=== PATIENT | male | born 1995 | race African-American/Black ===

== ENCOUNTER 2019-09-28 11:46 | Emergency (ER) | payer MEDICARE, OTHER ==
--- NOTE | 2019-09-28 12:32 | XR ---
EXAMINATION TYPE: XR hand complete LT DATE OF EXAM: 09/28/2019 COMPARISON: None HISTORY: Fifth metacarpal fracture from boxing TECHNIQUE: Three-view left hand FINDINGS: There is a comminuted fracture of the distal fifth metacarpal. Callus formation is evident. There is anterior angulation of the distal fracture fragment. Some mild soft tissue swelling may be over the fracture site. Remaining osseous structures appear intact. Joint spaces are preserved. IMPRESSION: 1. Distal fifth metacarpal fracture with anterior angulation of the distal fracture fragment. Some c allus formation is evident.
--- NOTE | 2019-09-28 12:35 | ED ---
Upper Extremity HPI - General Chief Complaint: Extremity Injury, Upper Stated Complaint: fx hand Time Seen by Provider: 09/28/19 12:03 Source: patient, RN notes reviewed Mode of arrival: ambulatory Limitations: no limitations - History of Present Illness Initial Comments: 24-year-old male presents emergency Department chief complaint of left hand injury. Patient states his happened 2 weeks ago in which she was diagnosed with a hand fracture. Patient states he took of a splinter follow-up with orthopedics. Patient states that it is still painful to move. Patient states he is ambidextrous. Patient denies making orthopedic appointment. - Related Data Home Medications Medication Instructions Recorded Confirmed ARIPiprazole [Abilify Maintena] 400 mg SQ Q28D 09/28/19 09/28/19 Allergies Allergy/AdvReac Type Severity Reaction Status Date / Time No Known Allergies Allergy Verified 09/28/19 12:18 Review of Systems ROS Statement: Those systems with pertinent positive or pertinent negative responses have been documented in the HPI. ROS Other: All systems not noted in ROS Statement are negative. Past Medical History Additional Past Medical History / Comment(s): Migraine History of Any Multi-Drug Resistant Organisms: None Reported Additional Past Surgical History / Comment(s): hand surgery Past Psychological History: Anxiety, Schizophrenia Smoking Status: Current every day smoker Past Alcohol Use History: Occasional Past Drug Use History: Marijuana General Exam Limitations: no limitations General appearance: alert, in no apparent distress Head exam: Present: atraumatic, normocephalic, normal inspection Neck exam: Present: normal inspection, full ROM. Absent: tenderness, meningismus, lymphadenopathy Respiratory exam: Present: normal lung sounds bilaterally. Absent: respiratory distress, wheezes, rales, rhonchi, stridor Cardiovascular Exam: Present: regular rate, normal rhythm, normal heart sounds. Absent: systolic murmur, diastolic murmur, rubs, gallop, clicks Extremities exam: Present: other (Left hand there is moderate swelling, deformity over the fifth metacarpal neurovascular intact full range of motion moderate tenderness with palpation) Course Vital Signs 09/28/19 09/28/19 12:00 12:40 Temperature 98.3 F 98.0 F Pulse Rate 82 78 Respiratory 20 16 Rate Blood Pressure 110/75 123/74 O2 Sat by Pulse 97 97 Oximetry Procedures - Orthopedic Splinting/Casting Injury #1 Side: left Upper Extremity Injury Location: hand Upper Extremity Immobilizer: ulnar gutter, synthetic pre-padded splint Additional Comments: Neurovascular intact before and after procedure Medical Decision Making - Medical Decision Making Patient was splinted and will follow-up with orthopedics. Disposition Clinical Impression: Displaced fracture of neck of left fifth metacarpal bone Disposition: HOME SELF-CARE Condition: Stable Instructions (If sedation given, give patient instructions): Hand Fracture (ED) Additional Instructions: Please return to the Emergency Department if symptoms worsen or any other concerns. Is patient prescribed a controlled substance at d/c from ED?: No Referrals: [facility] [Primary Care Provider] - 1-2 days Ramiro Treviño DO [Doctor of Osteopathic Medicine] - 1-2 days Time of Disposition: 12:35
[2019-09-28 12:41] VITALS: BP 123/74; PULSE 78; RESP 16; TEMP 98
== END 2019-09-28 12:50 | disposition home or self-care (01) ==
LOC: EC 11:46
DX: S62.337A Displaced fracture of neck of fifth metacarpal bone, left hand, initial encounter for closed fracture (principal); F41.9 Anxiety disorder, unspecified; F20.9 Schizophrenia, unspecified; F17.200 Nicotine dependence, unspecified, uncomplicated; Z79.899 Other long term (current) drug therapy; W50.0XXA Accidental hit or strike by another person, initial encounter; Y92.009 Unspecified place in unspecified non-institutional (private) residence as the place of occurrence of the external cause
CPT/HCPCS: 29125; 99283

== ENCOUNTER 2021-10-24 17:02 | Inpatient (IN) | payer MEDICARE, MEDICAID ==
--- NOTE | 2021-10-24 22:33 | ED ---
Psych HPI - General Chief Complaint: Psychiatric Symptoms Stated Complaint: Petition Time Seen by Provider: 10/24/21 17:10 Source: patient Mode of arrival: ambulatory - History of Present Illness Initial Comments: 26-year-old male with unknown past medical history presents emergency Department with altered mental status. Patient was found in the middle of traffic yelling, darting in between cars. Police arrested him and brought him into the emergency room. He is stating to me "I don't want any drugs or any needles". He will not provide any history. He does not answer in regards to drug use or history of psychiatric issues. I do attempt to call the patient's grandmother who is listed as his next of kin however she does not answer. Patient is petitioned by police. I do review the patient's chart. In 2013 it is mentioned that the patient has a history of schizophrenia. The remainder of the patient's HPI is limited - Related Data Home Medications Medication Instructions Recorded Confirmed Aripiprazole Lauroxil [Aristada] 441 mg IM Q42D 10/24/21 10/25/21 Allergies Allergy/AdvReac Type Severity Reaction Status Date / Time ibuprofen [From Motrin] AdvReac Abdominal Verified 10/25/21 04:46 Pain Review of Systems ROS Statement: Those systems with pertinent positive or pertinent negative responses have been documented in the HPI. ROS Other: All systems not noted in ROS Statement are negative. Past Medical History Additional Past Medical History / Comment(s): Migraine History of Any Multi-Drug Resistant Organisms: None Reported Additional Past Surgical History / Comment(s): hand surgery Past Psychological History: Anxiety, Schizophrenia Smoking Status: Current every day smoker Past Alcohol Use History: Occasional Past Drug Use History: Marijuana General Exam General appearance: alert, in no apparent distress Head exam: Present: atraumatic, normocephalic, normal inspection Eye exam: Present: normal appearance, PERRL, EOMI. Absent: scleral icterus, conjunctival injection, periorbital swelling ENT exam: Present: normal exam, mucous membranes moist Neck exam: Present: normal inspection. Absent: tenderness, meningismus, lymphadenopathy Respiratory exam: Present: normal lung sounds bilaterally. Absent: respiratory distress, wheezes, rales, rhonchi, stridor Cardiovascular Exam: Present: regular rate, normal rhythm, normal heart sounds. Absent: systolic murmur, diastolic murmur, rubs, gallop, clicks GI/Abdominal exam: Present: soft, normal bowel sounds. Absent: distended, tenderness, guarding, rebound, rigid Extremities exam: Present: normal inspection, full ROM, normal capillary refill. Absent: tenderness, pedal edema, joint swelling, calf tenderness Back exam: Present: normal inspection Neurological exam: Present: alert, CN II-XII intact Psychiatric exam: Present: flat affect Skin exam: Present: warm, dry, intact, normal color. Absent: rash Course Vital Signs 10/24/21 17:07 Temperature 97.8 F Pulse Rate 99 Respiratory 18 Rate Blood Pressure 111/71 O2 Sat by Pulse 98 Oximetry Medical Decision Making - Medical Decision Making Upon arrival patient was placed into room 8. I do attempt a physical exam and to obtain a history however he is uncooperative. Patient is not intoxicated at this time - BAT negative. Awaiting EPS evaluation - Lab Data Lab Results 10/25/21 Range/Units 02:50 Coronavirus (PCR) Not Detected (Not Detectd) Disposition Clinical Impression: Psychosis Disposition: TRANSFER TO PSYCH HOSP/UNIT Condition: Serious Is patient prescribed a controlled substance at d/c from ED?: No
[2021-10-25] MEDS ORDERED: MAGNESIUM HYDROXIDE 2,400 MG/10 ML CUP PO PRN (04:40)
[2021-10-25] MEDS ORDERED: MAG HYDROX/AL HYDROX/SIMETH 30 ML CUP PO PRN (04:40)
[2021-10-25] MEDS ORDERED: HALOPERIDOL LACTATE 5 MG/ML 1 ML VIAL IM PRN (04:40)
[2021-10-25] MEDS ORDERED: ACETAMINOPHEN TAB 325 MG TAB PO PRN (04:40)
[2021-10-25] MEDS ORDERED: LORazepam 2 MG/ML INJ IM PRN (04:44)
[2021-10-25 07:25] VITALS: RESP 16
[2021-10-25] MEDS ORDERED: NICOTINE 14MG/24HR PATCH TRANSDERM SCH (09:00)
--- NOTE | 2021-10-25 09:50 | P.CONS ---
History of Present Illness - Reason for Consult Consult date: 10/25/21 Requesting physician: Krishna Yang - History of Present Illness Subjective: This is a 26 showed male with past medical history of anxiety, schizophrenia, who presented to the hospital by the police. Patient was found in the middle of the traffic yelling in quitting between cars. Patient was arrested by the police and was brought to the emergency room. Patient currently is laying on the bed moving around but not opening his eyes or responding to any commands. Per nursing patient has been this way and does not want to talk to anyone. Earlier he was little aggressive as well. Patient would not answer any of my questions. Hence history is mainly obtained to chart review. In the ED patient did not answer questions when asked about the use of any psychiatric illness. Patient is currently petitioned by the police. PMH: Anxiety, schizophrenia, migraine PSH: hand surgery Social history: Documented history of smoking Family history: Unknown Physical Exam: Unable to be performed this patient is not cooperating Assessment: Altered mental status Schizophrenia Anxiety disorder History of migraines Plan: Psychiatry recommendations Check CBC, CMP, TSH, urine tox screen Haldol, Ativan when necessary ordered Lortab back again if patient is more engaged and if he answers anymore questions. Past Medical History Additional Past Medical History / Comment(s): Migraine History of Any Multi-Drug Resistant Organisms: None Reported Additional Past Surgical History / Comment(s): hand surgery Past Psychological History: Anxiety, Schizophrenia Smoking Status: Current every day smoker Past Alcohol Use History: Occasional Past Drug Use History: Marijuana Medications and Allergies Home Medications Medication Instructions Recorded Confirmed Type Aripiprazole Lauroxil [Aristada] 441 mg IM Q42D 10/24/21 10/25/21 History Allergies Allergy/AdvReac Type Severity Reaction Status Date / Time ibuprofen [From Motrin] AdvReac Abdominal Verified 10/25/21 04:46 Pain Physical Exam Vitals: Vital Signs Temp Pulse Pulse Resp BP BP Pulse Ox 10/25/21 07:07 97.1 F L 84 16 119/70 98 10/24/21 17:07 97.8 F 99 18 111/71 98 Intake and Output 10/24/21 10/25/21 10/25/21 22:59 06:59 14:59 Other: Weight 72.575 kg
--- NOTE | 2021-10-25 10:53 | P.HP ---
Psychiatric H&P - . H&P Date: 10/25/21 History & Physical: Mr. To refused to cooperate with the initial psychiatric assessment. I was unable to reach his grandmother who is listed as the next of kin. . Allergies Allergy/AdvReac Type Severity Reaction Status Date / Time ibuprofen [From Motrin] AdvReac Abdominal Verified 10/25/21 04:46 Pain Vital Signs Temp 97.1 F L 10/25/21 07:07 Pulse 84 10/25/21 07:07 Resp 16 10/25/21 07:07 BP 119/70 10/25/21 07:07 Pulse Ox 98 10/25/21 07:07 FiO2 Intake & Output 10/24/21 10/25/21 10/25/21 18:59 06:59 18:59 Weight 72.575 kg Laboratory Last Values Coronavirus (PCR) Not Detected (Not Detectd) 10/25/21 02:50 10/25/21 10:51
[2021-10-25] MEDS: LORazepam 1 MG TAB PO PRN (20:18)
[2021-10-25] MEDS: NICOTINE GUM (POLACRILEX) 2 MG GUM BUCCAL PRN (20:56)
[2021-10-26] MEDS: LORazepam 1 MG TAB PO PRN ×2 (08:31→15:40)
[2021-10-26] MEDS: NICOTINE GUM (POLACRILEX) 2 MG GUM BUCCAL PRN ×3 (08:31→18:54)
[2021-10-26 09:53] LABS: Basophils % (A) 1 %; Eosinophils # (A) 0.1 k/uL (0-0.7); Eosinophils % (A) 2 %; HGB 14.7 gm/dL (13.0-17.5); Lymphocytes # (A) 1.2 k/uL (1.0-4.8); Lymphocytes % (A) 34 %; MCH 28.8 pg (25.0-35.0); MCHC 31.3 g/dL (31.0-37.0); MCV 92.1 fL (80.0-100.0); Mean Platelet Volume 7.6; Monocytes # (A) 0.2 k/uL (0-1.0); Monocytes % (A) 6 %; Neutrophils % (A) 55 %; Platelet Count 252 k/uL (150-450); RDW 13.1 % (11.5-15.5); WBC 3.6 k/uL (3.8-10.6)
[2021-10-26 10:11] LABS: ALT 16 U/L (4-49); AST 22 U/L (17-59); African American GFR (CKD) >90 (>60 ml/min/1.73 sqM); Albumin 4.2 g/dL (3.5-5.0); Alkaline Phosphatase 68 U/L (38-126); Anion Gap 9 mmol/L; Bilirubin, Delta 0.1 mg/dL (0.0-0.2); Bilirubin,Unconjugated 0.5 mg/dL (0.0-1.1); Blood Urea Nitrogen 12 mg/dL (9-20); Calcium 8.9 mg/dL (8.4-10.2); Carbon Dioxide 29 mmol/L (22-30); Chloride 101 mmol/L (98-107); Glucose 119 mg/dL (74-99); Non-African American GFR(CKD) >90 (>60 ml/min/1.73 sqM); Potassium 4.4 mmol/L (3.5-5.1); Sodium 139 mmol/L (137-145); Total Bilirubin 0.6 mg/dL (0.2-1.3); Total Protein 6.3 g/dL (6.3-8.2)
[2021-10-26] MEDS: ARIPiprazole 5 MG TAB PO SCH (11:38)
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
[2021-10-26 16:58] LABS: Chol/HDL Ratio 2.87 Ratio; LDL Cholesterol,Calculated 86.4 mg/dL (0.0-131.0)
[2021-10-27] MEDS: ARIPiprazole 5 MG TAB PO SCH (09:58)
--- NOTE | 2021-10-27 13:39 | P.PN ---
Progress Note - Text Progress Note Date: 10/27/21 Interval History: Patient was seen leaving his bed this morning and was agreeable to speak to wr iter in his room. Patient continues to have very poor insight and judgment and continues to demand to be discharged. Continues to state that "nothing is wrong". He refuses medications this morning and when asked why he states that "I just want to get my shot and then not sad". He states that he has only gone to some groups. He is fairly constricted in his affect and uncooperative with telegraphic typewriter operator chief today and appears to be irritable. He states that he slept fairly last night. He is denying any auditory or visual hallucinations. He states that his appetite is fair. At this time patient denies any suicidal or homical ideations, intent or plan. Patient denies any side effects from the medications and has been compliant with meds. Mental Status Exam: General Appearance: Patient appears to have longer hair, thin and tall, stated age is alert, laying in bed and uncooperative. Patient appears to have improving hygiene and grooming. Behavior: Patient is laying in the bed without any agitated behavior. Irritable and impulsive Speech: Patient's speech is fluent and nonpressured. Guarded and evasive. [place]. Mood/Affect: Patient reports their mood is "ok", affect is incongruent and con stricted. Suicidality/Homicidality: Patient denies having any homicidal ideation intent or plan. Denies any suicidal ideations intent or plan Perceptions: Patient denies any visual hallucinations and denies any auditory hallucinations Though content/process: There is no evidence of any delusional thought content and thought process is linear and goal-directed. Vague. Evasive. Memory and concentration: AOX3, grossly intact for the purposes of this session Judgment and insight: poor IMPRESSIONS: Schizophrenia Cannabis use disorder Nicotine dependence Plan: -Patient continues to meet criteria for inpatient psychiatric admission for symptom stabilization and safety. Patient has not signed adult voluntary form and medication consent and was placed in patient's chart. -Medications: abilify PO 5 mg daily for mood stabilization/psychosis, patient is currently receiving Aristada 441 mg monthly IM and will be due for next dose on 11/14. -Benadryl when necessary for sleep. -When necessary Ativan and Haldol for agitation/aggression. -NRT - nicotine patch -SW on board for discharge planning. Encouraged the patient to participate in milieu. Currently awaiting deferral with front end developer designer and court date.
[2021-10-27] MEDS: NICOTINE GUM (POLACRILEX) 2 MG GUM BUCCAL PRN ×3 (15:00→21:30)
[2021-10-27 15:02] VITALS: BP 123/70; PULSE 101; TEMP 98.3
[2021-10-27] MEDS: LORazepam 1 MG TAB PO PRN (21:30)
[2021-10-27] MEDS: diphenhydrAMINE 25 MG CAP PO PRN (22:28)
[2021-10-27] MEDS: haloperidoL 5 MG TAB PO PRN (22:28)
--- NOTE | 2021-10-28 09:20 | P.PN ---
Progress Note - Text Progress Note Date: 10/28/21 Interval History: Patient was seen leaving his bed this morning and was agreeable to speak to wr iter in his room. Patient continues to have very poor insight and judgment. He continues to be fairly focused on discharge and minimizing his symptoms. He states that he needs the long-acting injection that he was getting from [facility]. Continues to believe that he is being held against his will. He appears to be somewhat visible on the unit however mainly in the afternoons and evenings. He did not endorse any paranoia today. He continues to be fairly concrete and states that he has been refusing his medication. Continues to be somewhat irritable with casualty underwriter. He states that he slept fairly last night. He is denying any auditory or visual hallucinations. He states that his appetite is fair. At this time patient denies any suicidal or homical ideations, intent or plan. Mental Status Exam: General Appearance: Patient appears to have longer hair, thin and tall, stated age is alert, laying in bed and uncooperative. Patient appears to have improving hygiene and grooming. Behavior: Patient is laying in the bed without any agitated behavior. Irritable and impulsive Speech: Patient's speech is fluent and nonpressured. Guarded and evasive. [place]. Mood/Affect: Patient reports their mood is "ok", affect is incongruent and constricted. Suicidality/Homicidality: Patient denies having any homicidal ideation intent or plan. Denies any suicidal ideations intent or plan Perceptions: Patient denies any visual hallucinations and denies any auditory hallucinations Though content/process: There is no evidence of any delusional thought content and thought process is linear and goal-directed. Vague. Evasive. Memory and concentration: AOX3, grossly intact for the purposes of this session Judgment and insight: poor IMPRESSIONS: Schizophrenia Cannabis use disorder Nicotine dependence Plan: -Patient continues to meet criteria for inpatient psychiatric admission for symptom stabilization and safety. Patient has not signed adult voluntary form and medication consent and was placed in patient's chart. -Medications: abilify PO 5 mg daily for mood stabilization/psychosis, patient is currently receiving Aristada 441 mg monthly IM and will be due for next dose on 11/14. -Benadryl when necessary for sleep. -When necessary Ativan and Haldol for agitation/aggression. -NRT - nicotine patch -SW on board for discharge planning. Encouraged the patient to participate in milieu. Deferral set for today, full court hearing set for 11/04.
[2021-10-28] MEDS: ARIPiprazole 5 MG TAB PO SCH (10:27)
[2021-10-29] MEDS: ARIPiprazole 5 MG TAB PO SCH (11:05)
--- NOTE | 2021-10-29 11:12 | P.PN ---
Progress Note - Text Progress Note Date: 10/29/21 Interval History: Patient was seen in his room today as he was gathering his belongings and gett ing ready to take a shower. He states that he has no complaints overnight last night. He claims that he is not feeling depressed or anxious today. He states that he was able to sleep better last night. He continues to have very poor insight and judgment and continues to be focused on discharge and states that he signed the deferral yesterday however he states that he does not want to take meds in the hospital and wants to go to [facility]. He called instructional writer several names and continues to be argumentative and impuslvie and disorganized. He is denying any auditory or visual hallucinations. He states that his appetite is fair. At this time patient denies any suicidal or homical ideations, intent or plan. Mental Status Exam: General Appearance: Patient appears to have longer hair, thin and tall, stated age is alert, laying in bed and uncooperative. Patient appears to have improving hygiene and grooming. Behavior: Patient is laying in the bed without any agitated behavior. Irritable and impulsive Speech: Patient's speech is fluent and nonpressured. Guarded and evasive. [place]. Mood/Affect: Patient reports their mood is "ok", affect is incongruent and constricted. Suicidality/Homicidality: Patient denies having any homicidal ideation intent or plan. Denies any suicidal ideations intent or plan Perceptions: Patient denies any visual hallucinations and denies any auditory hallucinations Though content/process: There is no evidence of any delusional thought content and thought process is linear and goal-directed. Vague. Evasive. Memory and concentration: AOX3, grossly intact for the purposes of this session Judgment and insight: poor IMPRESSIONS: Schizophrenia Cannabis use disorder Nicotine dependence Plan: -Patient continues to meet criteria for inpatient psychiatric admission for symptom stabilization and safety. Patient has not signed adult voluntary form and medication consent and was placed in patient's chart. -Medications: Discontinue Abilify by mouth and start paliperidone by mouth 3 mg daily at bedtime. -Benadryl when necessary for sleep. -When necessary Ativan and Haldol for agitation/aggression. -NRT - nicotine patch -SW on board for discharge planning. Encouraged the patient to participate in milieu. Sausage Machine Operator spoke with Dr Ugalde over the phone who also suspects that patient most likely is abusing drugs and not giving a uds. we spoke about differ ent medication options and she is ok with us starting invega and eventuaally switching onto a OTTO.
[2021-10-29] MEDS: PALIPERIDONE 3 MG TAB.ER.24 PO SCH (22:20)
[2021-10-30] MEDS ORDERED: LORazepam 2 MG/ML INJ IM PRN (10:34)
--- NOTE | 2021-10-30 10:34 | P.PN ---
Progress Note - Text Progress Note Date: 10/30/21 Interval History: Patient was seen in his room today laying in bed and got up once senior writer opened the door. Patient asked senior writer several times "would you want" and cut senior writer off as senior writer was attending to speak with patient to follow up with him. Patient appeared to be fairly hostile and aggressive with senior writer and states that "leave me alone I have nothing to say to you" and recently the door and closed it. Patient received haldol and Ativan PRN yesterday for aggression and breaking an exit sign on the unit. Mental Status Exam: General Appearance: Patient appears to have longer hair, thin and tall, stated age is alert, laying in bed and uncooperative and aggressive. Patient appears to have improving hygiene and grooming. Behavior: Patient is laying in the bed without any agitated behavior. Irritable and impulsive Speech: Patient's speech is fluent and nonpressured. Guarded and evasive. [place]. demanding. Mood/Affect: Unable to assess Suicidality/Homicidality: Unable to assess Perceptions: Unable to assess Though content/process: There is no evidence of any delusional thought content and thought process is linear and goal-directed. demanding Memory and concentration: AOX3, grossly intact for the purposes of this session Judgment and insight: poor/impuslive IMPRESSIONS: Schizophrenia Cannabis use disorder Nicotine dependence Plan: -Patient continues to meet criteria for inpatient psychiatric admission for symptom stabilization and safety. Patient has not signed adult voluntary form and medication consent and was placed in patient's chart. -Medications: paliperidone by mouth 3 mg daily at bedtime. patient is refusing medications. -Benadryl when necessary for sleep. -When necessary Ativan, benadryl and Haldol for agitation/aggression. -NRT - nicotine patch -SW on board for discharge planning. Encouraged the patient to participate in milieu. Fur Pointer spoke with Dr Ugalde over the phone who also suspects that patient most likely is abusing drugs and not giving a uds. we spoke about different medication options and she is ok with us starting invega and ev entually switching onto a OTTO.
[2021-10-30] MEDS ORDERED: diphenhydrAMINE 50 MG/ML 1 ML VIAL IM PRN (10:35)
[2021-10-30] MEDS: PALIPERIDONE 3 MG TAB.ER.24 PO SCH (21:32)
[2021-10-30] MEDS: NICOTINE GUM (POLACRILEX) 2 MG GUM BUCCAL PRN (21:56)
[2021-10-30] MEDS: haloperidoL 5 MG TAB PO PRN (21:56)
[2021-10-30] MEDS: diphenhydrAMINE 25 MG CAP PO PRN (21:56)
[2021-10-31] MEDS: haloperidoL 5 MG TAB PO PRN (16:56)
[2021-10-31] MEDS: diphenhydrAMINE 25 MG CAP PO PRN (16:56)
[2021-10-31] MEDS: NICOTINE GUM (POLACRILEX) 2 MG GUM BUCCAL PRN (18:24)
[2021-10-31] MEDS: PALIPERIDONE 3 MG TAB.ER.24 PO SCH (18:24)
--- NOTE | 2021-10-31 18:59 | P.PN ---
Progress Note - Text Progress Note Date: 10/31/21 Interval history: Patient was seen walking to his room after dinner and was directable and agreeable to speak with ad copy writer. He did not take the Invega last night, and did receive Haldol 5 mg po x 1 and Benadryl 25 mg po x 1 this afternoon for agitation. We discussed the Invega and he agreed to take his dose today. At this time, patient denies any suicidal or homicidal ideations intent or plan. He denies any auditory or visual hallucinations. Patient denies any side effects from the medications. Mental status exam: General Appearance: Patient appears to be stated age, tall male, fair hygiene. Behavior: No agitated behavior during our assessment, however he was agitated earlier this afternoon and received oral Haldol/Benadryl. Speech: Patient's speech is fluent and non-pressured. Mood/Affect: Mood is "good", affect is odd. Suicidality/Homicidality: Patient denies having any suicidal or homicidal ideation intent or plan. Perceptions: Patient denies any auditory or visual hallucinations, but does appear to be responding to internal stimuli and inappropriately smiling. Though content/process: There is no evidence of any delusional thought content, and thought process is generally linear. Memory and concentration: AOX3, grossly intact for the purposes of this session Judgment and insight: fair to poor Assessment/Plan: Continue with current diagnosis. Patient continues to meet criteria for inpatient psychiatric admission for symptom stabilization and safety. Patient will be maintained on current psychotropic medication regimen. Encourage medication compliance. Monitor for medication compliance and for any psychotropic medication side effects. Will continue to monitor ongoing response to treatment. Encouraged participation in milieu.
[2021-11-01] MEDS: NICOTINE GUM (POLACRILEX) 2 MG GUM BUCCAL PRN ×3 (11:07→17:16)
[2021-11-01] MEDS: haloperidoL 5 MG TAB PO PRN (13:30)
--- NOTE | 2021-11-01 17:50 | P.PN ---
Progress Note - Text Progress Note Date: 11/01/21 Interval history: Patient was seen attending group and was directable and agreeable to speak with commercial real estate underwriter, however he is not a very good historian since he appears to minimize his symptoms. He was compliant with his Invega 3 mg last night, and did receive Haldol 5 mg po x 1 again this afternoon which he states was for "anxiety". At this time, patient denies any suicidal or homicidal ideations intent or plan. He denies any auditory or visual hallucinations. Patient denies any side effects from the medications. Mental status exam: General Appearance: Patient appears to be stated age, tall male, fair hygiene. Behavior: No agitated behavior during our assessment, however he was did receive oral Haldol earlier today. Speech: Patient's speech is fluent and non-pressured. Mood/Affect: Mood is "good", affect is odd. Suicidality/Homicidality: Patient denies having any suicidal or homicidal ideation intent or plan. Perceptions: Patient denies any auditory or visual hallucinations, but does appear to be responding to internal stimuli and inappropriately smiling. Though content/process: There is no evidence of any delusional thought content, and thought process is generally linear. Memory and concentration: AOX3, grossly intact for the purposes of this session Judgment and insight: fair to poor Assessment/Plan: Continue with current diagnosis. Patient continues to meet criteria for inpatient psychiatric admission for symptom stabilization and safety. Patient will be maintained on current psychotropic medication regimen. Encourage medication compliance. Increase Invega to 6 mg QHS for mood/psychosis starting tonight. Monitor for medication compliance and for any psychotropic medication side effects. Will continue to monitor ongoing response to treatment. Encouraged participation in milieu.
[2021-11-01] MEDS: PALIPERIDONE 6 MG TAB.ER.24 PO SCH (20:04)
[2021-11-01] MEDS: diphenhydrAMINE 25 MG CAP PO PRN (20:04)
--- NOTE | 2021-11-02 12:08 | P.PN ---
Progress Note - Text Progress Note Date: 11/02/21 Interval History: Patient was seen sitting in on group this morning was agreeable to speak to wr quique. He appears to be more directable today however was hyperverbal and continues to demonstrate very poor insight and judgment. He rationalized and was justifying not taking medications that also asked more questions about the court process because he states that he is now taking the medications. He claims that he wanted to speak with his criminal defense attorney. He claims that he is doing "fine" and minimizing any kind of symptoms and states that he did well over the weekend. He claims that he is sleeping fairly however continues to get a Haldol and Ativan prn. At this time patient is denying any auditory or visual hallucinations and denying any suicidal or homicidal ideations intent or plan. We spoke more about his treatment and also the urine drug screen and he continues to deny using any recreational drugs besides cannabis. Mental Status Exam: General Appearance: Patient appears to have longer hair, thin and tall, stated age is alert, laying in bed and uncooperative, improving mildly. Patient appears to have improving hygiene and grooming. Behavior: Patient is laying in the bed without any agitated behavior. Less irritable today. Continues to be impulsive. Speech: Patient's speech is fluent and nonpressured. Guarded and evasive. [place]. Mood/Affect: He states that his mood is "okay" and affect is constricted. Suicidality/Homicidality: Denies Perceptions: Denies Though content/process: There is no evidence of any delusional thought content and thought process is circumstantial/tangential. demanding. Minimizing his symptoms and drug use. Memory and concentration: AOX3, grossly intact for the purposes of this session Judgment and insight: Chronically poor/impuslive, improving mildly IMPRESSIONS: Schizophrenia Cannabis use disorder Nicotine dependence Plan: -Patient continues to meet criteria for inpatient psychiatric admission for symptom stabilization and safety. Patient has not signed adult voluntary form and medication consent and was placed in patient's chart. -Medications: Continue with paliperidone by mouth 6 mg daily at bedtime. Benadryl when necessary for sleep. -When necessary Ativan, benadryl and Haldol for agitation/aggression. -NRT - nicotine patch -SW on board for discharge planning. Encouraged the patient to participate in milieu. Distiller spoke with Dr Ugalde over the phone who also suspects that patient most likely is abusing drugs and not giving a uds. we spoke about different medication options and she is ok with us starting invega and eventually switching onto a OTTO. Currently awaiting demand for hearing court date and for patient to be transitioned onto OTTO.
[2021-11-02] MEDS: NICOTINE GUM (POLACRILEX) 2 MG GUM BUCCAL PRN (18:28)
[2021-11-02] MEDS: PALIPERIDONE 6 MG TAB.ER.24 PO SCH (20:07)
[2021-11-02] MEDS: diphenhydrAMINE 25 MG CAP PO PRN (21:22)
[2021-11-02] MEDS: haloperidoL 5 MG TAB PO PRN (21:22)
[2021-11-03] MEDS ORDERED: diphenhydrAMINE 50 MG CAP PO PRN (10:27)
--- NOTE | 2021-11-03 10:30 | P.PN ---
Progress Note - Text Progress Note Date: 11/03/21 Interval History: Patient was seen laying in his bed this morning and was agreeable to speak to business writer. Patient appears to be mildly more directable today during conversation and claims that he is doing "okay". He continues to be very concrete and superficial. He continues to be focused on discharge and demonstrate superficial/poor insight and judgment. He states that he is taking his medications and not reporting any side effects. We spoke about about court tomorrow in the process and patient was agreeable to this. He continues to get prn Haldol and Ativan at nighttime and it is unknown exactly why. At this time patient is denying any auditory or visual hallucinations and denying any suicidal or homicidal ideations intent or plan. Mental Status Exam: General Appearance: Patient appears to have longer hair, thin and tall, stated age is alert, laying in bed and more cooperative, improving mildly. Patient appears to have improving hygiene and grooming. Behavior: Patient is laying in the bed without any agitated behavior. Less irritable today. Continues to be impulsive. Speech: Patient's speech is fluent and nonpressured. Guarded and evasive. [place]. Mood/Affect: He states that his mood is "ok" and affect is constricted. Suicidality/Homicidality: Denies Perceptions: Denies Though content/process: There is no evidence of any delusional thought content and thought process is circumstantial/tangential. Focused on discharge. Memory and concentration: AOX3, grossly intact for the purposes of this session Judgment and insight: Chronically poor/impuslive, improving mildly IMPRESSIONS: Schizophrenia Cannabis use disorder Nicotine dependence Plan: -Patient continues to meet criteria for inpatient psychiatric admission for symptom stabilization and safety. Patient has not signed adult voluntary form and medication consent and was placed in patient's chart. -Medications: Increase paliperidone by mouth 9 mg daily at bedtime. increase Benadryl 50 mg when necessary for sleep. -When necessary Ativan, benadryl and Haldol for agitation/aggression. -NRT - nicotine patch -SW on board for discharge planning. Encouraged the patient to participate in milieu. Manager Mining spoke with Dr Ugalde over the phone who also suspects that patient most likely is abusing drugs and not giving a uds. we spoke about different medication options and she is ok with us starting invega and eventually switching onto a OTTO. Currently awaiting demand for hearing court date and for patient to be transitioned onto OTTO.
[2021-11-03] MEDS: NICOTINE GUM (POLACRILEX) 2 MG GUM BUCCAL PRN (12:54)
[2021-11-03] MEDS: PALIPERIDONE 3 MG TAB.ER.24 PO SCH (20:30)
[2021-11-03] MEDS: hydrOXYzine pamoate 25 MG CAP PO PRN (20:32)
--- NOTE | 2021-11-04 09:59 | P.PN ---
Progress Note - Text Progress Note Date: 11/04/21 Interval History: Patient was seen laying in his bed this morning and was agreeable to speak to policy writer sales. Patient appears to be mildly more directable today. He continues to be fairly concrete in his answers and monotone. Continues to state that he feels "okay". He states that he is looking forward to the hearing date today. He states that his mood is "okay". She continues to demonstrate superficial/poor insight and judgment. He states that he is taking his medications and not reporting any side effects. He states that he slept fairly last night. At this time patient is denying any auditory or visual hallucinations and denying any suicidal or homicidal ideations intent or plan. Mental Status Exam: General Appearance: Patient appears to have longer hair, thin and tall, stated age is alert, laying in bed and more cooperative, improving mildly. Patient appears to have improving hygiene and grooming. Behavior: Patient is laying in the bed without any agitated behavior. Less irritable today. Continues to be impulsive. Speech: Patient's speech is fluent and nonpressured. Guarded and evasive. [place]. Mood/Affect: He states that his mood is "ok" and affect is constricted. Suicidality/Homicidality: Denies Perceptions: Denies Though content/process: There is no evidence of any delusional thought content and thought process is circumstantial/tangential. [place] Memory and concentration: AOX3, grossly intact for the purposes of this session Judgment and insight: Chronically poor/impuslive, improving mildly IMPRESSIONS: Schizophrenia Cannabis use disorder Nicotine dependence Plan: -Patient continues to meet criteria for inpatient psychiatric admission for symp jass stabilization and safety. Patient has not signed adult voluntary form and medication consent and was placed in patient's chart. -Medications: paliperidone by mouth 9 mg daily at bedtime. Benadryl 50 mg when necessary for sleep. -When necessary Ativan, benadryl and Haldol for agitation/aggression. -NRT - nicotine patch -SW on board for discharge planning. Encouraged the patient to participate in milieu. Pharmacy Intake Technician spoke with Dr Ugalde over the phone who also suspects that patient most likely is abusing drugs and not giving a uds. we spoke about different medication options and she is ok with us starting invega and eventually switching onto a OTTO. Currently awaiting demand for hearing court date and for patient to be transitioned onto OTTO.
[2021-11-04] MEDS: PALIPERIDONE 3 MG TAB.ER.24 PO SCH (19:50)
[2021-11-04] MEDS: hydrOXYzine pamoate 25 MG CAP PO PRN (21:05)
--- NOTE | 2021-11-05 10:44 | P.PN ---
Progress Note - Text Progress Note Date: 11/05/21 Interval History: Patient was seen wandering the hallwaysand wasagreeable to speak with marine underwriter. He states that he feels he is doing well on the meds at this time and is sleeping "much better". He appears to be more directable and less agitated/irritable with marine underwriter. He claims that he is going to some groups. We spoke about the transition onto the OTTO which he is agreeable to. Claims that his mood and anxiety have been gradually improving. mild improvement in insight and judgment. He states that he is taking his medications and not reporting any side effects. At this time patient is denying any auditory or visual hallucinations and denying any suicidal or homicidal ideations intent or plan. Mental Status Exam: General Appearance: Patient appears to have longer hair, thin and tall, stated age is alert, laying in bed and more cooperative, improving mildly. Patient appears to have improving hygiene and grooming. Behavior: Patient is laying in the bed without any agitated behavior. Less irritable today, more directable. Speech: Patient's speech is fluent and nonpressured. [place]. Mood/Affect: He states that his mood is "better" and affect is constricted. Suicidality/Homicidality: Denies Perceptions: Denies Though content/process: There is no evidence of any delusional thought content and thought process is circumstantial/tangential. [place] Memory and concentration: AOX3, grossly intact for the purposes of this session Judgment and insight: Chronically poor/impuslive, improving mildly IMPRESSIONS: Schizophrenia Cannabis use disorder Nicotine dependence Plan: -Patient continues to meet criteria for inpatient psychiatric admission for symptom stabilization and safety. Patient has not signed adult voluntary form and medication consent and was placed in patient's chart. -Medications: paliperidone by mouth 9 mg daily at bedtime. Benadryl 50 mg when necessary for sleep. will give Invega Sustenna 234 mg IM today, will be due for his next dose of 156 mg IM on 11/12 -When necessary Ativan, benadryl and Haldol for agitation/aggression. -NRT - nicotine patch - on board for discharge planning. Encouraged the patient to participate in milieu. Patient is currently on a active treatment order. will likely discharge tomorrow back home after OTTO today. he cant contiinue following up with [facility].
[2021-11-05] MEDS ORDERED: PALIPERIDONE IM 234 MG/1.5 ML SYG IM ONE (12:00)
[2021-11-05] MEDS: PALIPERIDONE 3 MG TAB.ER.24 PO SCH (21:26)
[2021-11-06] MEDS: NICOTINE GUM (POLACRILEX) 2 MG GUM BUCCAL PRN (12:25)
--- NOTE | 2021-11-08 18:58 | P.DS ---
Providers Date of admission: 10/25/21 04:36 Expected date of discharge: 11/06/21 Attending physician: Olaf Souza MD Consults: 10/25/21 04:40 Consult Physician Routine Consulting Provider: Chen Cortez Consult Reason/Comments: For H & P for Medical Follow Up Do you want consulting provider notified?: Yes Primary care physician: Stated None Hospital Course: Admission HPI: Admission note was completed by Dr. Souza: "H&P Date: 10/26/21 History & Physical: Allergies Allergy/AdvReac Type Severity Reaction Status Date / Time ibuprofen [From Motrin] AdvReac Abdominal Verified 10/25/21 04:46 Pain Vital Signs Temp 96.8 F L 10/26/21 08:31 Pulse 97 10/26/21 08:31 Resp 16 10/26/21 08:31 BP 113/66 10/26/21 08:31 Pulse Ox 98 10/25/21 07:07 FiO2 Laboratory Last Values WBC 3.6 k/uL (3.8-10.6) L 10/26/21 09:13 RBC 5.10 m/uL (4.30-5.90) 10/26/21 09:13 Hgb 14.7 gm/dL (13.0-17.5) 10/26/21 09:13 Hct 47.0 % (39.0-53.0) 10/26/21 09:13 MCV 92.1 fL (80.0-100.0) 10/26/21 09:13 MCH 28.8 pg (25.0-35.0) 10/26/21 09:13 MCHC 31.3 g/dL (31.0-37.0) 10/26/21 09:13 RDW 13.1 % (11.5-15.5) 10/26/21 09:13 Plt Count 252 k/uL (150-450) 10/26/21 09:13 MPV 7.6 10/26/21 09:13 Neutrophils % 55 % 10/26/21 09:13 Lymphocytes % 34 % 10/26/21 09:13 Monocytes % 6 % 10/26/21 09:13 Eosinophils % 2 % 10/26/21 09:13 Basophils % 1 % 10/26/21 09:13 Neutrophils # 2.0 k/uL (1.3-7.7) 10/26/21 09:13 Lymphocytes # 1.2 k/uL (1.0-4.8) 10/26/21 09:13 Monocytes # 0.2 k/uL (0-1.0) 10/26/21 09:13 Eosinophils # 0.1 k/uL (0-0.7) 10/26/21 09:13 Basophils # 0.0 k/uL (0-0.2) 10/26/21 09:13 Sodium 139 mmol/L (137-145) 10/26/21 09:13 Potassium 4.4 mmol/L (3.5-5.1) 10/26/21 09:13 Chloride 101 mmol/L (98-107) 10/26/21 09:13 Carbon Dioxide 29 mmol/L (22-30) 10/26/21 09:13 Anion Gap 9 mmol/L 10/26/21 09:13 BUN 12 mg/dL (9-20) 10/26/21 09:13 Creatinine 0.91 mg/dL (0.66-1.25) 10/26/21 09:13 Est GFR (CKD-EPI)AfAm >90 (>60 ml/min/1.73 sqM) 10/26/21 09:13 Est GFR (CKD-EPI)NonAf >90 (>60 ml/min/1.73 sqM) 10/26/21 09:13 Glucose 119 mg/dL (74-99) H 10/26/21 09:13 Calcium 8.9 mg/dL (8.4-10.2) 10/26/21 09:13 Total Bilirubin 0.6 mg/dL (0.2-1.3) 10/26/21 09:13 Conjugated Bilirubin 0.0 mg/dL (0.0-0.3) 10/26/21 09:13 Unconjugated Bilirubin 0.5 mg/dL (0.0-1.1) 10/26/21 09:13 Delta Bilirubin 0.1 mg/dL (0.0-0.2) 10/26/21 09:13 AST 22 U/L (17-59) 10/26/21 09:13 ALT 16 U/L (4-49) 10/26/21 09:13 Alkaline Phosphatase 68 U/L (38-126) 10/26/21 09:13 Total Protein 6.3 g/dL (6.3-8.2) 10/26/21 09:13 Albumin 4.2 g/dL (3.5-5.0) 10/26/21 09:13 TSH 0.983 mIU/L (0.465-4.680) 10/26/21 09:13 Coronavirus (PCR) Not Detected (Not Detectd) 10/25/21 02:50 10/26/21 11:46 IDENTIFYING DATA: Patient is a 26-year-old -[place] male, currently lives alone in a house, no kids. HPI: Patient presented to the hospital initially on a petition and clinical certificate although by the ER. Petition stated that patient was acting bizarre and aggressive. Patient is currently a patient of Dr. Ugalde at [facility] and currently receiving aristada OTTO every 28 days. Apparently patient will be due for his next injection on 11/14. Patient was attempted to be seen by Dr Yang (the weekend however was uncooperative and claiming that he was illegally detained and brought to the hospital. Patient was seen today wandering the hallways and agreeable speech coach. He initially was fairly cooperative however throughout the interview became more guarded and argumenta tive. He appeared to have very poor insight and judgment into his mental health condition and need for medications. He states that he is taking the aristada every month and is having no issues with it. He states that he was at a store and he believes that "people were worried about manic guess". He described trying to get to the LE machine and the person at the store was "yelling at me". He states that he was trying to get to his friend's house however the manager of sustainability came up from behind me" pushed me" and brought him into the hospital. He continues to be fairly argumentative and be a poor historian. He also demonstrates poor impulse control and poor frustration tolerance. He states that his mood is fine, describes some irritability and impulsivity. Denies any anxiety at this time. States that his sleep is fair and appetite is fair. Patient denies any suicidal or homicidal ideations intent or plan. At this time patient denies any auditory or visual hallucinations. She claims that he vapes nicotine and also marijuana products. Denies any other recreational drug use. Patient gave very limited social history. He became agitated when speaking about medications and impulsively walked out of the room. PAST PSYCHIATRIC HISTORY: Patient states that he has a history of schizophrenia. Patient is currently on aristada OTTO 441 mg q monthly. She will be due for his next injection on November 14. [Patient denies any previous psychiatric hospitalizations.] He currently follows up at [facility] with Dr. Ugaled. [Patient denies any history of suicide attempts in the past.] PMH: As per medical H&P. ALLERGIES: as per EMR CHEMICAL DEPENDENCY HISTORY: as per HPI FAMILY PSYCHIATRIC/SUBSTANCE USE HISTORY: Unable to assess SOCIAL HISTORY: Unable to assess. He currently lives alone in a house has no kids. Collects SSD. MENTAL STATUS EXAM: General Appearance: Patient appears to have longer hair, thin and tall, stated age is alert, initially cooperative however became more irritable and impulsive. Patient appears to have [poor] hygiene and grooming. Behavior: Patient is seated without any agitated behavior. Irritable and impulsive near the end of the interview. Speech: Patient's speech is [fluent and nonpressured.] Guarded and evasive. Allred. Mood/Affect: Patient reports their mood is "okay", affect is incongruent and constricted. Suicidality/Homicidality: Patient denies having any homicidal ideation intent or plan. [Denies any suicidal ideations intent or plan] Perceptions: Patient denies any visual hallucinations [and denies any auditory hallucinations] Though content/process: [There is no evidence of any delusional thought content and thought process is linear and goal-directed.] Vague. Evasive. Memory and concentration: AOX3, grossly intact for the purposes of this session. Can spell "WORLD" backwards Judgment and insight: [poor] STRENGTHS/WEAKNESSES: strength is that patient is [resilient]. Weakness is that patient [has poor judgment and is impulsive] INTELLECT: [average] IMPRESSIONS: Schizophrenia Cannabis use disorder Nicotine dependence PLAN: -Patient is admitted under involuntary status to [facility]HU for stabilization of psychiatric symptoms and safety. Patient has [not] signed [adult voluntary form and] [medication consent] and is placed in patient's chart. [A second certification was completed and along with petition will be filed for court.] -Medications : Will start patient on abilify PO 5 mg daily for mood stabilization/psychosis, patient is currently receiving Aristada 441 mg monthly IM and will be due for next dose on 11/14. Line Maintenance will attempt to speak with Dr Ugalde about patients medications -benadryl 25 mg qhs prn for insomnia -Ativan [and Haldol] PRN for agitation/aggression [-Patient was counselled on substance abuse and desired to cut back on use] -Patient was informed of the risks, benefits and side effects of the medication and did not sign med consent. -Internal Medicine consult to perform medical evaluation and physical. -NRT - [nicotine patch] -SW on board for discharge planning. Encourage patient to participate in groups to work on coping skills. [Will await deferral and court date.] publications writer will attempt to speak with Dr Ugalde today about patients case and meds. 10/26/21 11:54" Hospital course: Upon admission to the unit patient was irritable and refused to cooperate with the initial psychiatric assessment on 10/25/2021. He repeatedly demanded to leave the hospital complaining that he was brought here illegally against his will. He alleged he did not know the reason "they" brought him to the hospital and he did not know who brought him to the hospital. He did not sign adult formal voluntary and was on active treatment order. He was started on oral Invega and given Invega Sustenna 234 mg IM on 11/05/2021. Patient denied any side effects throughout hospital course. Patient spoke of his stressors and engaged in therapy both group and individual. Patient was also seen by medical team for history and physical exam. Throughout the course of the hospitalization patient gradually improved with regards to mood, psychosis and returned back to their baseline level of functioning. On the day of discharge patient denied any suicidal or homicidal ideation, intent or plan denied any auditory or visual hallucinations. The patient denied any access to guns or weapons. Patient denied any paranoia and did not endorse any delusions. Patient does have a significant history of substance abuse and was counseled on abstaining from all substances including alcohol and marijuana. Patient was also counseled on the medications and need for regular compliance and was encouraged to follow-up with their outpatient appointment for mental health and also for primary care. Mental status exam: General Appearance: Patient appears to be stated age, is in no acute distress, and has improved hygiene and grooming. Behavior: Patient is calm without any agitated behavior. Speech: Patient's speech is fluent and non-pressured. Mood/Affect: Patient reports their mood is "good", affect is congruent and euthymic. Suicidality/Homicidality: Patient denies having any suicidal or homicidal ideation intent or plan. Perceptions: Patient denies any auditory or visual hallucinations. Though content/process: There is no evidence of any delusional thought content and thought process is linear and goal-directed. Memory and concentration: AOX3, grossly intact for the purposes of this session. Judgment and insight: chronically poor, improved with guarded prognosis Impression: Schizophrenia Cannabis use disorder Nicotine dependence Plan: -Continue with discharge today as patient has improved and stabilized psychiatrically and is not currently an imminent threat to himself and/or others. Patient will remain at chronically elevated risk for harm to self and/or others due to his impulsivity and polysubstance abuse. -Continue medications: Invega Sustenna 234 mg IM given on 11/05/2021, and booster dose of Invega Sustenna 156 mg IM is due on 11/12/2021, and every 4 weeks thereafter for psychosis. Vistaril 50 mg TID PRN for anxiety. -Patient was counseled on the need for medication compliance and appropriate follow-up at mental health and also primary care for medical issues. -Social work to arrange for patients follow up appointments for psychiatric care along with follow up with primary care provider. -Patient counseled on abstaining from recreational drugs and marijuana and alcohol. Was informed/educated on the adverse effects on their physical and mental health. -Patient was instructed to return to the hospital or seek immediate medical care if their psychiatric or medical symptoms do worsen or reoccur. Laboratory Results WBC 3.6 k/uL (3.8-10.6) L 10/26/21 09:13 RBC 5.10 m/uL (4.30-5.90) 10/26/21 09:13 Hgb 14.7 gm/dL (13.0-17.5) 10/26/21 09:13 Hct 47.0 % (39.0-53.0) 10/26/21 09:13 MCV 92.1 fL (80.0-100.0) 10/26/21 09:13 MCH 28.8 pg (25.0-35.0) 10/26/21 09:13 MCHC 31.3 g/dL (31.0-37.0) 10/26/21 09:13 RDW 13.1 % (11.5-15.5) 10/26/21 09:13 Plt Count 252 k/uL (150-450) 10/26/21 09:13 MPV 7.6 10/26/21 09:13 Neutrophils % 55 % 10/26/21 09:13 Lymphocytes % 34 % 10/26/21 09:13 Monocytes % 6 % 10/26/21 09:13 Eosinophils % 2 % 10/26/21 09:13 Basophils % 1 % 10/26/21 09:13 Neutrophils # 2.0 k/uL (1.3-7.7) 10/26/21 09:13 Lymphocytes # 1.2 k/uL (1.0-4.8) 10/26/21 09:13 Monocytes # 0.2 k/uL (0-1.0) 10/26/21 09:13 Eosinophils # 0.1 k/uL (0-0.7) 10/26/21 09:13 Basophils # 0.0 k/uL (0-0.2) 10/26/21 09:13 Sodium 139 mmol/L (137-145) 10/26/21 09:13 Potassium 4.4 mmol/L (3.5-5.1) 10/26/21 09:13 Chloride 101 mmol/L (98-107) 10/26/21 09:13 Carbon Dioxide 29 mmol/L (22-30) 10/26/21 09:13 Anion Gap 9 mmol/L 10/26/21 09:13 BUN 12 mg/dL (9-20) 10/26/21 09:13 Creatinine 0.91 mg/dL (0.66-1.25) 10/26/21 09:13 Est GFR (CKD-EPI)AfAm >90 (>60 ml/min/1.73 sqM) 10/26/21 09:13 Est GFR (CKD-EPI)NonAf >90 (>60 ml/min/1.73 sqM) 10/26/21 09:13 Glucose 119 mg/dL (74-99) H 10/26/21 09:[address] Glu mg/dL 112 10/26/21 09:13 Hemoglobin A1c 5.5 % (0.0-6.0) 10/26/21 09:13 Calcium 8.9 mg/dL (8.4-10.2) 10/26/21 09:13 Total Bilirubin 0.6 mg/dL (0.2-1.3) 10/26/21 09:13 Conjugated Bilirubin 0.0 mg/dL (0.0-0.3) 10/26/21 09:13 Unconjugated Bilirubin 0.5 mg/dL (0.0-1.1) 10/26/21 09:13 Delta Bilirubin 0.1 mg/dL (0.0-0.2) 10/26/21 09:13 AST 22 U/L (17-59) 10/26/21 09:13 ALT 16 U/L (4-49) 10/26/21 09:13 Alkaline Phosphatase 68 U/L (38-126) 10/26/21 09:13 Total Protein 6.3 g/dL (6.3-8.2) 10/26/21 09:13 Albumin 4.2 g/dL (3.5-5.0) 10/26/21 09:13 Triglycerides 95.50 mg/dL (0.00-149.00) 10/26/21 09:13 Cholesterol 162.00 mg/dL (0.00-200.00) 10/26/21 09:13 LDL Cholesterol, Calc 86.4 mg/dL (0.0-131.0) 10/26/21 09:13 VLDL Cholesterol, Calc 19.10 mg/dL (5.00-40.00) 10/26/21 09:13 HDL Cholesterol 56.50 mg/dL (40.00-60.00) 10/26/21 09:13 Cholesterol/HDL Ratio 2.87 Ratio 10/26/21 09:13 TSH 0.983 mIU/L (0.465-4.680) 10/26/21 09:13 Coronavirus (PCR) Not Detected (Not Detectd) 10/25/21 02:50 Patient Condition at Discharge: Stable Plan - Discharge Summary New Discharge Prescriptions: New Paliperidone IM [Invega Sustenna] 156 mg IM ONCE 7 Days #1 ml hydrOXYzine pamoate [Vistaril] 50 mg PO TID PRN 30 Days #90 cap PRN Reason: Anxiety Discontinued Aripiprazole Lauroxil [Aristada] 441 mg IM Q42D Discharge Medication List Paliperidone IM [Invega Sustenna] 156 mg IM ONCE 7 Days #1 ml 11/06/21 [Rx] hydrOXYzine pamoate [Vistaril] 50 mg PO TID PRN 30 Days #90 cap 11/06/21 [Rx] Follow up Appointment(s)/Referral(s): [facility] [Outside] - 11/10/21 3:30 pm (11/10/21 @ 3:30-4:30 Sherri Pavon 11/11/21 @ 1:00 Nurse 11/18/21 @ 9:[address] Ugalde) [facility] - 1 Week Patient Instructions/Handouts: How to Stop Smoking (ED), Schizophrenia (DC) Activity/Diet/Wound Care/Special Instructions: Avoid the use of street drugs and alcohol. Take all prescriptions as prescribed. When you are in need of refills on your medications, please contact your medical provider and/or outpatient psychiatrist to have this done. Please go to scheduled outpatient appointment for aftercare treatment. If symptoms return or become worse, call the crisis line at and/or go to the nearest emergency room for evaluation. Discharge Disposition: HOME SELF-CARE
== END 2021-11-06 14:05 | disposition home or self-care (01) | DRG 885 ==
LOC: EC 17:02 → 3MHU 10-25 04:36
PROVIDERS: ADMIT Psychiatry & Neurology Psychiatry; ATTEND Psychiatry & Neurology Psychiatry
DX: F20.9 Schizophrenia, unspecified (principal); F12.10 Cannabis abuse, uncomplicated; Z20.822 Contact with and (suspected) exposure to COVID-19; F41.9 Anxiety disorder, unspecified; G43.909 Migraine, unspecified, not intractable, without status migrainosus; F17.210 Nicotine dependence, cigarettes, uncomplicated; Z71.6 Tobacco abuse counseling; Z88.6 Allergy status to analgesic agent; Z79.899 Other long term (current) drug therapy; Z60.2 Problems related to living alone; Z71.51 Drug abuse counseling and surveillance of drug abuser; Z71.41 Alcohol abuse counseling and surveillance of alcoholic
CPT/HCPCS: 80053; 80061; 82075; 82248; 83036; 84443; 85025; 87635; 99285

== ENCOUNTER 2023-09-13 17:46 | Emergency (ER) | payer MEDICARE, OTHER ==
[2023-09-13 17:57] VITALS: RESP 18; TEMP 99.5
--- NOTE | 2023-09-13 18:07 | ED ---
ENT HPI - General Chief complaint: ENT Stated complaint: mouth pain Time Seen by Provider: 09/13/23 18:01 Source: patient Mode of arrival: ambulatory Limitations: no limitations - History of Present Illness Initial comments: 28-year-old male presenting with chief complaint of pain to the floor of the mouth. Started today. He feels a bump to the underside of his tongue. He also states that there was some bleeding earlier today. He does admit to odynop hagia. No dysphagia or shortness of breath. No fever. The patient is anxious and constantly moving his extremities. No muffled voice or drooling. Denies injury or trauma. - Related Data Previous Rx's Medication Instructions Recorded Paliperidone IM [Invega Sustenna] 156 mg IM ONCE 7 Days #1 ml 11/06/21 hydrOXYzine pamoate [Vistaril] 50 mg PO TID PRN 30 Days #90 cap 11/06/21 Cephalexin [Keflex] 500 mg PO Q6HR 5 Days #20 cap 09/13/23 Sulfamethox-Tmp 800-160Mg [Bactrim 1 tab PO Q12HR 7 Days #14 tab 09/13/23 DS 800-160 mg] Allergies Allergy/AdvReac Type Severity Reaction Status Date / Time ibuprofen [From Motrin] AdvReac Abdominal Verified 09/13/23 17:57 Pain Review of Systems ROS Statement: Those systems with pertinent positive or pertinent negative responses have been documented in the HPI. ROS Other: All systems not noted in ROS Statement are negative. Past Medical History Additional Past Medical History / Comment(s): Migraine History of Any Multi-Drug Resistant Organisms: None Reported Additional Past Surgical History / Comment(s): hand surgery Past Psychological History: Anxiety, Schizophrenia Smoking Status: Current every day smoker Past Alcohol Use History: Occasional Past Drug Use History: Marijuana General Exam Limitations: no limitations General appearance: alert, anxious Head exam: Present: atraumatic, normocephalic Eye exam: Present: normal appearance, EOMI Expanded Mouth exam: Present: normal external inspection, other (Small bump to the floor of the mouth, no induration) Throat exam: normal inspection Neck exam: Present: normal inspection. Absent: meningismus Respiratory exam: Absent: respiratory distress Cardiovascular Exam: Present: tachycardia Neurological exam: Present: alert, oriented X3 Psychiatric exam: Present: agitated, anxious Skin exam: Present: warm, dry Course Vital Signs 09/13/23 09/13/23 17:53 20:36 Temperature 99.5 F Pulse Rate 114 H 117 H Respiratory 18 Rate Blood Pressure 219/130 123/85 O2 Sat by Pulse 96 99 Oximetry Medical Decision Making - Medical Decision Making Was pt. sent in by a medical professional or institution (, PA, NUCLEAR MEDICINE TECH, urgent care, hospital, or fpc...) When possible be specific @ -No Did you speak to anyone other than the patient for history (EMS, parent, family, police, friend...)? What history was obtained from this source @ -Spoke with the patient's grandmother Did you review nursing and triage notes (agree or disagree)? Why? @ -I reviewed and agree with nursing and triage notes Were old charts reviewed (outside hosp., previous admission, EMS record, old EKG, old radiological studies, urgent care reports/EKG's, fpc records)? Report findings @ -No old charts were reviewed Differential Diagnosis (chest pain, altered mental status, abdominal pain women, abdominal pain men, vaginal bleeding, weakness, fever, dyspnea, syncope, headache, dizziness, GI bleed, back pain, seizure, CVA, palpatations, mental health, musculoskeletal)? @ -Differential includes abscess, allergic reaction, saliva duct stone, this is not an all-inclusive list EKG interpreted by me (3pts min.). @ -EKG shows sinus tachycardia ventricular rate 112. DC interval 168. QRS 86. QT 305. QTc 371. X-rays interpreted by me (1pt min.). @ -None done CT interpreted by me (1pt min.). @ -None done U/S interpreted by me (1pt. min.). @ -None done What testing was considered but not performed or refused? (CT, X-rays, U/S, labs)? Why? @ -None What meds were considered but not given or refused? Why? @ -Labetalol was considered, however on reassessment of the patient's blood pressure his values had significantly improved without intervention Did you discuss the management of the patient with other professionals (professionals i.e. , SANDRINE, NUCLEAR MEDICINE TECH, lab, RT, psych nurse, social work supervisor, canvas goods supervisor, teacher, commissioned security officer, case management specialist)? Give summary @ -No Was smoking cessation discussed for >3mins.? @ -No Was critical care preformed (if so, how long)? @ -No Were there social determinants of health that impacted care today? How? (Homelessness, low income, unemployed, alcoholism, drug addiction, transportation, low edu. Level, literacy, decrease access to med. care, group home, rehab)? @ -No Was there de-escalation of care discussed even if they declined (Discuss DNR or withdrawal of care, Hospice)? DNR status @ -No What co-morbidities impacted this encounter? (DM, HTN, Smoking, COPD, CAD, Cancer, CVA, ARF, Chemo, Hep., AIDS, mental health diagnosis, sleep apnea, morbid obesity)? @ -None Was patient admitted / discharged? Hospital course, mention meds given and route, prescriptions, significant lab abnormalities, going to OR and other pertinent info. @ -28-year-old male presenting with chief complaint of pain to the floor of his mouth. On exam there is a small bump to the floor of the mouth. There is no induration. No muffled voice, drooling, trismus, difficulty breathing or swallowing. Patient's initial blood pressure in triage is 219/130. On repeat without intervention his blood pressure is 123/85 patient was quite anxious earlier and constantly fidgeting, likely some artifact and misrepresentation of his blood pressure initially. However given his elevated blood pressure we did obtain labs. No leukocytosis or anemia negative troponin. EKG shows sinus tac hycardia. Urine toxicology is positive for amphetamines and methamphetamines, likely explains the patient's behavior. UA is pending, patient would rather be contacted with the results. He will be started on Keflex for suspected salivary stone and instructed to follow-up with ENT. Follow-up with PCP. Report back to ER with any new or worsening symptoms. Discussed return parameters and answered all questions. Patient conveyed verbal understanding and agreed to the plan. I discussed this case in detail with my attending Dr. Bejarano UA results show evidence of UTI. Attempted to contact the patient, was unable to reach him. I was able to contact the patient's grandmother and informed them of the UTI. He was sent Bactrim and they are instructed to follow-up with PCP for resolution of UTI. Undiagnosed new problem with uncertain prognosis? @ -No Drug Therapy requiring intensive monitoring for toxicity (Heparin, Nitro, Insulin, Cardizem)? @ -No Were any procedures done? @ -No Diagnosis/symptom? @ -Sialolithiasis, UTI Acute, or Chronic, or Acute on Chronic? @ -Acute Uncomplicated (without systemic symptoms) or Complicated (systemic symptoms)? @ -Uncomplicated Side effects of treatment? @ -No Exacerbation, Progression, or Severe Exacerbation? @ -No Poses a threat to life or bodily function? How? (Chest pain, [place], [place], pneumonia, PE, COPD, DKA, ARF, appy, cholecystitis, CVA, Diverticulitis, Homicidal, Suicidal, threat to staff... and all critical care pts) @ -Potential if not treated Diagnosis/symptom? @Methamphetamine use Acute, or Chronic, or Acute on Chronic? @Acute Uncomplicated (without systemic symptoms) or Complicated (systemic symptoms)? @Complicated Side effects of treatment? @None Exacerbation, Progression, or Severe Exacerbation] @No Poses a threat to life or bodily function? @Threat without cessation - Lab Data Result diagrams: 09/13/23 20:49 09/13/23 20:49 Lab Results 09/13/23 09/13/23 09/13/23 Range/Units 20:00 20:49 20:49 WBC 9.2 (3.8-10.6) k/uL RBC 4.66 (4.30-5.90) m/uL Hgb 13.7 (13.0-17.5) gm/dL Hct 42.5 (39.0-53.0) % MCV 91.4 (80.0-100.0) fL MCH 29.4 (25.0-35.0) pg MCHC 32.2 (31.0-37.0) g/dL RDW 13.1 (11.5-15.5) % Plt Count 216 (150-450) k/uL MPV 7.8 Neutrophils % 78 % Lymphocytes % 12 % Monocytes % 6 % Eosinophils % 2 % Basophils % 0 % Neutrophils # 7.1 (1.3-7.7) k/uL Lymphocytes # 1.1 (1.0-4.8) k/uL Monocytes # 0.6 (0-1.0) k/uL Eosinophils # 0.2 (0-0.7) k/uL Basophils # 0.0 (0-0.2) k/uL Sodium 138 (137-145) mmol/L Potassium 4.0 (3.5-5.1) mmol/L Chloride 105 (98-107) mmol/L Carbon Dioxide 22 (22-30) mmol/L Anion Gap 11 mmol/L BUN 10 (9-20) mg/dL Creatinine 1.06 (0.66-1.25) mg/dL Est GFR (CKD-EPI)AfAm >90 (>60 ml/min/1.73 sqM) Est GFR (CKD-EPI)NonAf >90 (>60 ml/min/1.73 sqM) Glucose 100 H (74-99) mg/dL POC Glucose (mg/dL) 98 (70-110) mg/dL POC Glu [employer] Maker [employer]airer Odette Farrell Calcium 9.7 (8.4-10.2) mg/dL Total Bilirubin 1.2 (0.2-1.3) mg/dL AST 53 (17-59) U/L ALT 50 H (4-49) U/L Alkaline Phosphatase 105 (38-126) U/L Troponin I (0.000-0.034) ng/mL Total Protein 7.4 (6.3-8.2) g/dL Albumin 5.0 (3.5-5.0) g/dL Urine Color Urine Appearance (Clear) Urine pH (5.0-8.0) Ur Specific [place] (1.001-1.035) Urine Protein (Negative) Urine Glucose (UA) (Negative) Urine Ketones (Negative) Urine Blood (Negative) Urine Nitrite (Negative) Urine Bilirubin (Negative) Urine Urobilinogen (<2.0) mg/dL Ur Leukocyte Esterase (Negative) Urine RBC (0-5) /hpf Urine WBC (0-5) /hpf Urine WBC Clumps (None) /hpf Ur Squamous Epith Cells (0-4) /hpf Urine Bacteria (None) /hpf Urine Mucus (None) /hpf Urine Opiates Screen (NotDetected) Ur Oxycodone Screen (NotDetected) Urine Methadone Screen (NotDetected) Ur Barbiturates Screen (NotDetected) U Tricyclic Antidepress (NotDetected) Ur Phencyclidine Scrn (NotDetected) Ur Amphetamines Screen (NotDetected) U Methamphetamines Scrn (NotDetected) U Benzodiazepines Scrn (NotDetected) Urine Cocaine Screen (NotDetected) U Marijuana (THC) Screen (NotDetected) 09/13/23 09/13/23 09/13/23 Range/Units 20:49 21:28 21:28 WBC (3.8-10.6) k/uL RBC (4.30-5.90) m/uL Hgb (13.0-17.5) gm/dL Hct (39.0-53.0) % MCV (80.0-100.0) fL MCH (25.0-35.0) pg MCHC (31.0-37.0) g/dL RDW (11.5-15.5) % Plt Count (150-450) k/uL MPV Neutrophils % % Lymphocytes % % Monocytes % % Eosinophils % % Basophils % % Neutrophils # (1.3-7.7) k/uL Lymphocytes # (1.0-4.8) k/uL Monocytes # (0-1.0) k/uL Eosinophils # (0-0.7) k/uL Basophils # (0-0.2) k/uL Sodium (137-145) mmol/L Potassium (3.5-5.1) mmol/L Chloride (98-107) mmol/L Carbon Dioxide (22-30) mmol/L Anion Gap mmol/L BUN (9-20) mg/dL Creatinine (0.66-1.25) mg/dL Est GFR (CKD-EPI)AfAm (>60 ml/min/1.73 sqM) Est GFR (CKD-EPI)NonAf (>60 ml/min/1.73 sqM) Glucose (74-99) mg/dL POC Glucose (mg/dL) (70-110) mg/dL POC Glu [employer]ision Instrument Maker And Repairer ID Calcium (8.4-10.2) mg/dL Total Bilirubin (0.2-1.3) mg/dL AST (17-59) U/L ALT (4-49) U/L Alkaline Phosphatase (38-126) U/L Troponin I <0.012 (0.000-0.034) ng/mL Total Protein (6.3-8.2) g/dL Albumin (3.5-5.0) g/dL Urine Color Yellow Urine Appearance Cloudy (Clear) Urine pH 6.0 (5.0-8.0) Ur Specific [place] 1.031 (1.001-1.035) Urine Protein 1+ H (Negative) Urine Glucose (UA) Trace H (Negative) Urine Ketones 2+ H (Negative) Urine Blood Negative (Negative) Urine Nitrite Negative (Negative) Urine Bilirubin Negative (Negative) Urine Urobilinogen 6.0 (<2.0) mg/dL Ur Leukocyte Esterase Large H (Negative) Urine RBC 1 (0-5) /hpf Urine WBC 127 H (0-5) /hpf Urine WBC Clumps Rare H (None) /hpf Ur Squamous Epith Cells 2 (0-4) /hpf Urine Bacteria Rare H (None) /hpf Urine Mucus Moderate H (None) /hpf Urine Opiates Screen Not Detected (NotDetected) Ur Oxycodone Screen Not Detected (NotDetected) Urine Methadone Screen Not Detected (NotDetected) Ur Barbiturates Screen Not Detected (NotDetected) U Tricyclic Antidepress Not Detected (NotDetected) Ur Phencyclidine Scrn Not Detected (NotDetected) Ur Amphetamines Screen Detected H (NotDetected) U Methamphetamines Scrn Detected H (NotDetected) U Benzodiazepines Scrn Not Detected (NotDetected) Urine Cocaine Screen Not Detected (NotDetected) U Marijuana (THC) Screen Not Detected (NotDetected) Disposition Clinical Impression: Sialolithiasis, UTI (urinary tract infection), Methamphetamine abuse Disposition: HOME SELF-CARE Condition: Good Instructions (If sedation given, give patient instructions): Urinary Tract Infection in Men (ED), Parotid Duct Obstruction (ED) Additional Instructions: Follow-up with PCP and ENT. Report back to ER with any new or worsening symptoms. Prescriptions: Sulfamethox-Tmp 800-160Mg [Bactrim DS 800-160 mg] 1 tab PO Q12HR 7 Days #14 tab Cephalexin [Keflex] 500 mg PO Q6HR 5 Days #20 cap Is patient prescribed a controlled substance at d/c from ED?: No Referrals: None,Stated [Primary Care Provider] - 1-2 days Xiang Trammell MD [STAFF PHYSICIAN] - 1-2 days Krishna Maharaj MD [STAFF PHYSICIAN] - 1-2 days Time of Disposition: 22:40
[2023-09-13 20:00] LABS: Glucose,Whole Blood 98 mg/dL (70-110)
[2023-09-13] MEDS: LABETALOL 5 MG/ML VIAL MDV IVP STA (20:20)
[2023-09-13] MEDS: ACETAMINOPHEN TAB 500 MG TAB PO STA (20:32)
[2023-09-13 20:36] VITALS: BP 123/85; PULSE 117
[2023-09-13 20:55] LABS: Basophils % (A) 0 %; Eosinophils # (A) 0.2 k/uL (0-0.7); Eosinophils % (A) 2 %; HCT 42.5 % (39.0-53.0); HGB 13.7 gm/dL (13.0-17.5); Lymphocytes # (A) 1.1 k/uL (1.0-4.8); Lymphocytes % (A) 12 %; MCH 29.4 pg (25.0-35.0); MCHC 32.2 g/dL (31.0-37.0); MCV 91.4 fL (80.0-100.0); Mean Platelet Volume 7.8; Monocytes # (A) 0.6 k/uL (0-1.0); Monocytes % (A) 6 %; Neutrophils # (A) 7.1 k/uL (1.3-7.7); Neutrophils % (A) 78 %; Platelet Count 216 k/uL (150-450); RBC 4.66 m/uL (4.30-5.90); RDW 13.1 % (11.5-15.5); WBC 9.2 k/uL (3.8-10.6)
[2023-09-13 21:10] LABS: ALT 50 U/L (4-49); AST 53 U/L (17-59); African American GFR (CKD) >90 (>60 ml/min/1.73 sqM); Alkaline Phosphatase 105 U/L (38-126); Anion Gap 11 mmol/L; Blood Urea Nitrogen 10 mg/dL (9-20); Calcium 9.7 mg/dL (8.4-10.2); Carbon Dioxide 22 mmol/L (22-30); Chloride 105 mmol/L (98-107); Glucose 100 mg/dL (74-99); Non-African American GFR(CKD) >90 (>60 ml/min/1.73 sqM); Sodium 138 mmol/L (137-145); Total Bilirubin 1.2 mg/dL (0.2-1.3); Total Protein 7.4 g/dL (6.3-8.2)
[2023-09-13 22:19] LABS: Amphetamine Screen,Urine Detected (NotDetected); Barbiturate Screen,Urine Not Detected (NotDetected); Benzodiazepines Screen,Urine Not Detected (NotDetected); Cocaine Screen,Urine Not Detected (NotDetected); Methadone Screen, Urine Not Detected (NotDetected); Opiate Screen,Urine Not Detected (NotDetected); Oxycodone Screen, Urine Not Detected (NotDetected); Phencyclidine Screen,Urine Not Detected (NotDetected); Tricyclic Antidepressant,Urine Not Detected (NotDetected); Urn Cannabinoid Scrn Not Detected (NotDetected)
[2023-09-13] MEDS: CEPHALEXIN 500 MG CAP PO STA (22:47)
[2023-09-13 22:53] LABS: Appearance,Urine Cloudy (Clear); Bacteria,Urine Rare /hpf; Bilirubin,Urine Negative (Negative); Blood,Urine Negative (Negative); Color,Urine Yellow; Glucose,Urine (UA) Trace (Negative); Ketones,Urine 2+ (Negative); Leukocyte Esterase,Urine Large (Negative); Mucus,Urine Moderate /hpf; Nitrite,Urine Negative (Negative); Protein,Urine 1+ (Negative); RBC,Urine 1 /hpf (0-5); Specific Gravity,Urine 1.031 (1.001-1.035); Squamous Epithelial Cell,Urine 2 /hpf (0-4); WBC,Urine 127 /hpf (0-5)
== END 2023-09-13 23:05 | disposition home or self-care (01) ==
LOC: EC 17:46
DX: K11.5 Sialolithiasis (principal); N39.0 Urinary tract infection, site not specified; F15.10 Other stimulant abuse, uncomplicated; R00.0 Tachycardia, unspecified; F17.200 Nicotine dependence, unspecified, uncomplicated; Z88.6 Allergy status to analgesic agent
CPT/HCPCS: 36415; 80053; 80306; 81001; 84484; 85025; 93005; 99283

== ENCOUNTER 2023-09-26 13:30 | Emergency (ER) | payer MEDICARE, OTHER ==
[2023-09-26 13:37] VITALS: RESP 18
[2023-09-26 14:27] LABS: Basophils % (A) 1 %; Eosinophils # (A) 0.1 k/uL (0-0.7); Eosinophils % (A) 2 %; HCT 45.4 % (39.0-53.0); HGB 15.2 gm/dL (13.0-17.5); Lymphocytes % (A) 20 %; MCH 29.2 pg (25.0-35.0); MCHC 33.4 g/dL (31.0-37.0); MCV 87.5 fL (80.0-100.0); Mean Platelet Volume 7.2; Monocytes # (A) 0.3 k/uL (0-1.0); Monocytes % (A) 7 %; Neutrophils # (A) 3.5 k/uL (1.3-7.7); Neutrophils % (A) 70 %; Platelet Count 264 k/uL (150-450); RBC 5.19 m/uL (4.30-5.90); RDW 12.7 % (11.5-15.5); WBC 5.1 k/uL (3.8-10.6)
[2023-09-26 14:52] LABS: ALT 38 U/L (4-49); AST 34 U/L (17-59); African American GFR (CKD) >90 (>60 ml/min/1.73 sqM); Albumin 4.9 g/dL (3.5-5.0); Alkaline Phosphatase 113 U/L (38-126); Anion Gap 12 mmol/L; Blood Urea Nitrogen 11 mg/dL (9-20); Calcium 10.1 mg/dL (8.4-10.2); Carbon Dioxide 20 mmol/L (22-30); Chloride 105 mmol/L (98-107); Glucose 100 mg/dL (74-99); Lipase 31 U/L (23-300); Magnesium 1.9 mg/dL (1.6-2.3); Non-African American GFR(CKD) >90 (>60 ml/min/1.73 sqM); Potassium 3.8 mmol/L (3.5-5.1); Sodium 137 mmol/L (137-145); Total Bilirubin 0.7 mg/dL (0.2-1.3); Total Protein 7.3 g/dL (6.3-8.2)
--- NOTE | 2023-09-26 15:32 | XR ---
EXAMINATION TYPE: XR chest 2V DATE OF EXAM: 09/26/2023 COMPARISON: NONE HISTORY: Chest pain TECHNIQUE: Frontal and lateral views of the chest are obtained. FINDINGS: There is no focal air space opacity, pleural effusion, or pneumothorax seen. The cardiac silhouette size is within normal limits. The osseous structures are intact. IMPRESSION: No acute cardiopulmonary process.
--- NOTE | 2023-09-26 16:16 | ED ---
Chest Pain HPI - General Chief Complaint: Chest Pain Stated Complaint: Chest Pain,Anxiety Time Seen by Provider: 09/26/23 13:42 Source: patient Mode of arrival: ambulatory Limitations: no limitations - History of Present Illness Initial Comments: 28-year-old male with no past medical history who presents emergency department for chest pain and anxiety. Patient was at court this morning. He started having chest pain and appeared to pass out. EMS was called. He refused IV or any treatment by them. Admits that the pain is right-sided. Area is tender to touch. He has no reported cardiac history. No abdominal pain. No fevers, chills or cough. Patient also requesting testing for urinary tract infection. He admits to burning with urination. No other alleviating, precipitating or modifying factors - Related Data Home Medications Medication Instructions Recorded Confirmed Paliperidone IM [Invega Sustenna] 234 mg IM Q28D 09/26/23 09/26/23 Previous Rx's Medication Instructions Recorded traZODone HCL [Desyrel] 50 mg PO HS #30 tab 09/26/23 Allergies Allergy/AdvReac Type Severity Reaction Status Date / Time ibuprofen [From Motrin] AdvReac Abdominal Verified 09/29/23 09:44 Pain Review of Systems ROS Statement: Those systems with pertinent positive or pertinent negative responses have been documented in the HPI. ROS Other: All systems not noted in ROS Statement are negative. Past Medical History Additional Past Medical History / Comment(s): Migraine History of Any Multi-Drug Resistant Organisms: None Reported Additional Past Surgical History / Comment(s): hand surgery Past Psychological History: Anxiety, Schizophrenia Smoking Status: Current every day smoker Past Alcohol Use History: Occasional Past Drug Use History: Marijuana General Exam Limitations: no limitations General appearance: alert, in no apparent distress, anxious Head exam: Present: atraumatic, normocephalic, normal inspection Eye exam: Present: normal appearance, PERRL, EOMI. Absent: scleral icterus, conjunctival injection, periorbital swelling ENT exam: Present: normal exam, mucous membranes moist Neck exam: Present: normal inspection. Absent: tenderness, meningismus, lymphadenopathy Respiratory exam: Present: normal lung sounds bilaterally, chest wall tenderness (Right-sided). Absent: respiratory distress, wheezes, rales, rhonchi, stridor Cardiovascular Exam: Present: regular rate, normal rhythm, normal heart sounds. Absent: systolic murmur, diastolic murmur, rubs, gallop, clicks GI/Abdominal exam: Present: soft, normal bowel sounds. Absent: distended, tenderness, guarding, rebound, rigid Extremities exam: Present: normal inspection, full ROM, normal capillary refill. Absent: tenderness, pedal edema, joint swelling, calf tenderness Back exam: Present: normal inspection Neurological exam: Present: alert, oriented X3, CN II-XII intact Psychiatric exam: Present: normal affect, normal mood Skin exam: Present: warm, dry, intact, normal color. Absent: rash Course Vital Signs 09/26/23 09/26/23 09/26/23 13:33 15:38 17:03 Temperature 98 F 98.2 F Pulse Rate 102 H 85 84 Respiratory 18 18 18 Rate Blood Pressure 116/69 125/80 120/76 O2 Sat by Pulse 98 99 99 Oximetry Chest Pain MDM - MDM Was pt. sent in by a medical professional or institution (, PA, CHIEF COUNSEL, urgent care, hospital, or long-term...) When possible be specific @ -No Did you speak to anyone other than the patient for history (EMS, parent, family, police, friend...)? What history was obtained from this source @ -Spoke with EMS for history Did you review nursing and triage notes (agree or disagree)? Why? @ -I reviewed and agree with nursing and triage notes Were old charts reviewed (outside hosp., previous admission, EMS record, old EKG, old radiological studies, urgent care reports/EKG's, long-term records)? Report findings @ -No old charts were reviewed Differential Diagnosis (chest pain, altered mental status, abdominal pain women, abdominal pain men, vaginal bleeding, weakness, fever, dyspnea, syncope, headache, dizziness, GI bleed, back pain, seizure, CVA, palpatations, mental health, musculoskeletal)? @ -Differential Chest Pain: Stable Angina, Unstable Angina, STEMI, NSTEMI Aortic Dissection, Pneumothorax, Musculoskeletal, Esophageal Spasm GERD, Cholecystitis, Pancreatitis, Zoster, this is not meant to be an all-inclusive list. EKG interpreted by me (3pts min.). @ -Yes and demonstrates sinus rhythm with a rate of 96. VT interval 170. QRS 92. QTc of 387. No acute ST segment elevations or depressions X-rays interpreted by me (1pt min.). @ -Yes and demonstrates no acute process CT interpreted by me (1pt min.). @ -None done U/S interpreted by me (1pt. min.). @ -None done What testing was considered but not performed or refused? (CT, X-rays, U/S, labs)? Why? @ -None What meds were considered but not given or refused? Why? @ -None Did you discuss the management of the patient with other professionals (professionals i.e. , PA, CHIEF COUNSEL, lab, RT, psych nurse, social work faculty member, master coastwise yacht, teacher, juvenile correctional officer, rn case manager)? Give summary @ -No Was smoking cessation discussed for >3mins.? @ -No Was critical care preformed (if so, how long)? @ -No Were there social determinants of health that impacted care today? How? (Homelessness, low income, unemployed, alcoholism, drug addiction, transportation, low edu. Level, literacy, decrease access to med. care, retirement, rehab)? @ -No Was there de-escalation of care discussed even if they declined (Discuss DNR or withdrawal of care, Hospice)? DNR status @ -No What co-morbidities impacted this encounter? (DM, HTN, Smoking, COPD, CAD, Cancer, CVA, ARF, Chemo, Hep., AIDS, mental health diagnosis, sleep apnea, morbid obesity)? @ -None Was patient admitted / discharged? Hospital course, mention meds given and route, prescriptions, significant lab abnormalities, going to OR and other pertinent info. @ -Upon arrival patient seen and evaluated in room 6. Thorough history and physical exam was performed. IV access was established. Laboratory studies are conducted. Chest x-ray was performed. Results are discussed with patient. Patient will be discharged home at this time. Instructed follow-up with his PCP for further workup of his symptoms and return for any new or worsening symptoms. After the patient was discharged he was requesting me to prescribe something for him to sleep. He states he has taken trazodone before for sleep Undiagnosed new problem with uncertain prognosis? @ -No Drug Therapy requiring intensive monitoring for toxicity (Heparin, Nitro, Insulin, Cardizem)? @ -No Were any procedures done? @ -No Diagnosis/symptom? @ -Acute chest pain Acute, or Chronic, or Acute on Chronic? @ -Acute Uncomplicated (without systemic symptoms) or Complicated (systemic symptoms)? @ -Complicated Side effects of treatment? @ -No Exacerbation, Progression, or Severe Exacerbation? @ -No Poses a threat to life or bodily function? How? (Chest pain, [place], [place], pneumonia, PE, COPD, DKA, ARF, appy, cholecystitis, CVA, Diverticulitis, Homicidal, Suicidal, threat to staff... and all critical care pts) @ -No Disposition Clinical Impression: Chest pain, Insomnia Disposition: HOME SELF-CARE Condition: Stable Instructions (If sedation given, give patient instructions): Chest Pain (ED) Additional Instructions: Please follow-up with your primary care doctor for further management of your symptoms. I recommend echo and holter monitoring. Prescriptions: traZODone HCL [Desyrel] 50 mg PO HS #30 tab Is patient prescribed a controlled substance at d/c from ED?: No Referrals: None,Stated [Primary Care Provider] - 1-2 days Time of Disposition: 16:51
[2023-09-26] MEDS: KETOROLAC 15 MG/ML 1 ML VIAL IVP STA (16:26)
[2023-09-26 16:47] LABS: Appearance,Urine Clear (Clear); Bilirubin,Urine Negative (Negative); Blood,Urine Negative (Negative); Color,Urine Yellow; Glucose,Urine (UA) Negative (Negative); Ketones,Urine Trace (Negative); Leukocyte Esterase,Urine Small (Negative); Mucus,Urine Moderate /hpf; Nitrite,Urine Negative (Negative); Protein,Urine Trace (Negative); RBC,Urine <1 /hpf (0-5); Specific Gravity,Urine 1.019 (1.001-1.035); Squamous Epithelial Cell,Urine 3 /hpf (0-4); Urobilinogen,Urine <2.0 mg/dL (<2.0); WBC,Urine 4 /hpf (0-5)
[2023-09-26 17:04] VITALS: BP 120/76; PULSE 84; TEMP 98.2
== END 2023-09-26 17:13 | disposition home or self-care (01) ==
LOC: EC 13:30
DX: G47.00 Insomnia, unspecified (principal); R07.9 Chest pain, unspecified; F17.200 Nicotine dependence, unspecified, uncomplicated; Z88.6 Allergy status to analgesic agent
CPT/HCPCS: 36415; 93005; 80053; 83690; 83735; 84484; 85025; 81001; 71046; 99285; 96374; J1885

== ENCOUNTER 2023-09-29 09:34 | Emergency (ER) | payer MEDICARE, OTHER ==
[2023-09-29 09:45] VITALS: TEMP 97.9
--- NOTE | 2023-09-29 09:51 | ED ---
Nausea/Vomiting/Diarrhea HPI - General Chief complaint: Nausea/Vomiting/Diarrhea Stated complaint: NVD Time Seen by Provider: 09/29/23 09:50 Source: patient, RN notes reviewed Mode of arrival: ambulatory Limitations: no limitations - History of Present Illness Initial comments: This is a 28-year-old male who presents to the emergency department for concerns of "throwing up particles". Believes that this is from eating pizza last night. States that these look like pieces of glass. He does not currently feel nauseous but states that he feels like his stomach is still "full of particles" and his bowels hurt. Also reports an episode of diarrhea that he describes as "violent" lasting for 15 minutes. - Related Data Home Medications Medication Instructions Recorded Confirmed Paliperidone IM [Invega Sustenna] 234 mg IM Q28D 09/26/23 09/26/23 Previous Rx's Medication Instructions Recorded traZODone HCL [Desyrel] 50 mg PO HS #30 tab 09/26/23 Allergies Allergy/AdvReac Type Severity Reaction Status Date / Time ibuprofen [From Motrin] AdvReac Abdominal Verified 09/29/23 09:44 Pain Review of Systems ROS Statement: Those systems with pertinent positive or pertinent negative responses have been documented in the HPI. ROS Other: All systems not noted in ROS Statement are negative. Past Medical History Additional Past Medical History / Comment(s): Migraine History of Any Multi-Drug Resistant Organisms: None Reported Additional Past Surgical History / Comment(s): hand surgery Past Psychological History: Anxiety, Schizophrenia Smoking Status: Current every day smoker Past Alcohol Use History: Occasional Past Drug Use History: Marijuana General Exam Limitations: no limitations General appearance: alert, in no apparent distress Head exam: Present: atraumatic, normocephalic, normal inspection Respiratory exam: Present: normal lung sounds bilaterally. Absent: respiratory distress, wheezes, rales, rhonchi, stridor Cardiovascular Exam: Present: regular rate, normal rhythm, normal heart sounds. Absent: systolic murmur, diastolic murmur, rubs, gallop, clicks GI/Abdominal exam: Present: soft, normal bowel sounds. Absent: distended, tenderness, guarding, rebound, rigid Neurological exam: Present: alert, oriented X3, CN II-XII intact Psychiatric exam: Present: normal affect, normal mood Skin exam: Present: warm, dry, intact, normal color. Absent: rash Course Vital Signs 09/29/23 09/29/23 09:41 13:46 Temperature 97.9 F Pulse Rate 101 H 8 L Respiratory 20 18 Rate Blood Pressure 138/95 118/80 O2 Sat by Pulse 97 97 Oximetry Medical Decision Making - Medical Decision Making This is a 28 year old male who presents to the emergency department for vomiting and diarrhea. Was pt. sent in by a medical professional or institution? @ -No Did you speak to anyone other than the patient for history? @ -No Did you review nursing and triage notes? @ -Yes, and I agree, it is accurate with regards to the patient's symptoms. Were old charts reviewed? @ -No Differential Diagnosis? @ -Differential Diarrhea: Gastroenteritis, food poisoning, medications, this is not meant to be an all- inclusive list. EKG interpreted by me (3pts min.)? @ -Not obtained X-rays interpreted by me (1pt min.)? @ -KUB x-ray obtained. My interpretation identifies no dilation of large small bowel loops. CT interpreted by me (1pt min.)? @ -Not obtained U/S interpreted by me (1pt. min.)? @ -Not obtained What testing was considered but not performed? (CT, X-rays, U/S, labs)? Why? @ -None What meds were considered but not given? Why? @ -None Did you discuss the management of the patient with other professionals? @ -No Did you reconcile home meds? @ -No Was smoking cessation discussed for >3mins.? @ -No Was critical care preformed (if so, how long)? @ -No Were there social determinants of health that impacted care today? How? (Homelessness, low income, unemployed, alcoholism, drug addiction, transportation, low edu. Level, literacy, decrease access to med. care, longterm, rehab)? @ -Drug addiction, likely contributing to his current complaints. Was there de-escalation of care discussed even if they declined? (Discuss DNR or withdrawal of care, Hospice)? @ -No What co-morbidities impacted this encounter? (DM, HTN, Smoking, COPD, CAD, Cancer, CVA, Hep., AIDS, mental health diagnosis, sleep apnea, morbid obesity)? @ -Schizophrenia, drug addiction Was patient admitted / discharged? @ -Discharged. Lab work unremarkable. Urinalysis negative for signs of infection. Urine drug screen positive for methamphetamines and amphetamines. KUB x-ray obtained demonstrating minimal stool in the right side of the abdomen without other acute process. Patient's symptoms are likely related to his drug addiction and mental health problems with his complaints of "throwing up particles". Tylenol, Zofran, and a GI cocktail administered in the emergency department. Patient advised that he needs to stop using methamphetamine and a mphetamines as well as have regular follow-up with [facility] for the schizophrenia. Patient discharged home in stable condition. Case discussed with ED attending Dr. Allison. Return precautions reviewed in depth, the patient is instructed to return to the emergency department with any new, worsening, or concerning symptoms. Patient verbalized understanding. Undiagnosed new problem with uncertain prognosis? @ -None Drug Therapy requiring intensive monitoring for toxicity (Heparin, Nitro, Insulin, Cardizem)? @ -None Were any procedures done? @ -None Diagnosis/symptom? @ -Abdominal pain, diarrhea Acute, or Chronic, or Acute on Chronic? @ -Acute Uncomplicated (without systemic symptoms) or Complicated (systemic symptoms)? @ -Uncomplicated Side effects of treatment? @ -None Exacerbation, Progression, or Severe Exacerbation] @ -Not applicable Poses a threat to life or bodily function? @ -No - Lab Data Result diagrams: 09/29/23 10:25 09/29/23 10:25 Lab Results 09/29/23 09/29/23 09/29/23 Range/Units 10:25 10:25 10:25 WBC 5.8 (3.8-10.6) k/uL RBC 4.95 (4.30-5.90) m/uL Hgb 14.3 (13.0-17.5) gm/dL Hct 43.2 (39.0-53.0) % MCV 87.4 (80.0-100.0) fL MCH 28.9 (25.0-35.0) pg MCHC 33.0 (31.0-37.0) g/dL RDW 13.2 (11.5-15.5) % Plt Count 249 (150-450) k/uL MPV 7.4 Neutrophils % 67 % Lymphocytes % 21 % Monocytes % 8 % Eosinophils % 1 % Basophils % 0 % Neutrophils # 3.9 (1.3-7.7) k/uL Lymphocytes # 1.2 (1.0-4.8) k/uL Monocytes # 0.5 (0-1.0) k/uL Eosinophils # 0.1 (0-0.7) k/uL Basophils # 0.0 (0-0.2) k/uL Sodium 140 (137-145) mmol/L Potassium 3.9 (3.5-5.1) mmol/L Chloride 105 (98-107) mmol/L Carbon Dioxide 23 (22-30) mmol/L Anion Gap 12 mmol/L BUN 5 L (9-20) mg/dL Creatinine 1.03 (0.66-1.25) mg/dL Est GFR (CKD-EPI)AfAm >90 (>60 ml/min/1.73 sqM) Est GFR (CKD-EPI)NonAf >90 (>60 ml/min/1.73 sqM) Glucose 82 (74-99) mg/dL Calcium 9.8 (8.4-10.2) mg/dL Total Bilirubin 0.5 (0.2-1.3) mg/dL AST 36 (17-59) U/L ALT 39 (4-49) U/L Alkaline Phosphatase 88 (38-126) U/L Total Protein 7.5 (6.3-8.2) g/dL Albumin 5.0 (3.5-5.0) g/dL Urine Color Colorless Urine Appearance Clear (Clear) Urine pH 6.5 (5.0-8.0) Ur Specific [place] 1.001 (1.001-1.035) Urine Protein Negative (Negative) Urine Glucose (UA) Negative (Negative) Urine Ketones Negative (Negative) Urine Blood Negative (Negative) Urine Nitrite Negative (Negative) Urine Bilirubin Negative (Negative) Urine Urobilinogen <2.0 (<2.0) mg/dL Ur Leukocyte Esterase Negative (Negative) Urine Opiates Screen Not Detected (NotDetected) Ur Oxycodone Screen Not Detected (NotDetected) Urine Methadone Screen Not Detected (NotDetected) Ur Barbiturates Screen Not Detected (NotDetected) U Tricyclic Antidepress Not Detected (NotDetected) Ur Phencyclidine Scrn Not Detected (NotDetected) Ur Amphetamines Screen Detected H (NotDetected) U Methamphetamines Scrn Detected H (NotDetected) U Benzodiazepines Scrn Not Detected (NotDetected) Urine Cocaine Screen Not Detected (NotDetected) U Marijuana (THC) Screen Not Detected (NotDetected) Serum Alcohol <10 mg/dL - Radiology Data Radiology results: report reviewed, image reviewed Disposition Clinical Impression: Abdominal pain, Diarrhea Disposition: HOME SELF-CARE Instructions (If sedation given, give patient instructions): Acute Diarrhea (ED) Additional Instructions: Return to the emergency department with any new, worsening, or concerning symptoms. Stop using meth and amphetamines. Take Imodium as needed for diarrhea and Tylenol as needed for abdominal pain. Follow up with your primary care provider in 1-2 days. Is patient prescribed a controlled substance at d/c from ED?: No Referrals: None,Stated [Primary Care Provider] - 1-2 days Time of Disposition: 13:15
[2023-09-29 10:31] LABS: Appearance,Urine Clear (Clear); Bilirubin,Urine Negative (Negative); Blood,Urine Negative (Negative); Color,Urine Colorless; Glucose,Urine (UA) Negative (Negative); Ketones,Urine Negative (Negative); Leukocyte Esterase,Urine Negative (Negative); Nitrite,Urine Negative (Negative); PH, Urine 6.5 (5.0-8.0); Protein,Urine Negative (Negative); Specific Gravity,Urine 1.001 (1.001-1.035); Urobilinogen,Urine <2.0 mg/dL (<2.0)
[2023-09-29 10:47] LABS: ALT 39 U/L (4-49); AST 36 U/L (17-59); African American GFR (CKD) >90 (>60 ml/min/1.73 sqM); Alcohol <10 mg/dL; Alkaline Phosphatase 88 U/L (38-126); Anion Gap 12 mmol/L; Blood Urea Nitrogen 5 mg/dL (9-20); Calcium 9.8 mg/dL (8.4-10.2); Carbon Dioxide 23 mmol/L (22-30); Chloride 105 mmol/L (98-107); Glucose 82 mg/dL (74-99); Non-African American GFR(CKD) >90 (>60 ml/min/1.73 sqM); Potassium 3.9 mmol/L (3.5-5.1); Sodium 140 mmol/L (137-145); Total Bilirubin 0.5 mg/dL (0.2-1.3); Total Protein 7.5 g/dL (6.3-8.2)
[2023-09-29 10:54] LABS: Basophils % (A) 0 %; Eosinophils # (A) 0.1 k/uL (0-0.7); Eosinophils % (A) 1 %; HCT 43.2 % (39.0-53.0); HGB 14.3 gm/dL (13.0-17.5); Lymphocytes # (A) 1.2 k/uL (1.0-4.8); Lymphocytes % (A) 21 %; MCH 28.9 pg (25.0-35.0); MCV 87.4 fL (80.0-100.0); Mean Platelet Volume 7.4; Monocytes # (A) 0.5 k/uL (0-1.0); Monocytes % (A) 8 %; Neutrophils # (A) 3.9 k/uL (1.3-7.7); Neutrophils % (A) 67 %; Platelet Count 249 k/uL (150-450); RBC 4.95 m/uL (4.30-5.90); RDW 13.2 % (11.5-15.5); WBC 5.8 k/uL (3.8-10.6)
[2023-09-29 11:02] LABS: Amphetamine Screen,Urine Detected (NotDetected); Barbiturate Screen,Urine Not Detected (NotDetected); Benzodiazepines Screen,Urine Not Detected (NotDetected); Cocaine Screen,Urine Not Detected (NotDetected); Methadone Screen, Urine Not Detected (NotDetected); Opiate Screen,Urine Not Detected (NotDetected); Oxycodone Screen, Urine Not Detected (NotDetected); Phencyclidine Screen,Urine Not Detected (NotDetected); Tricyclic Antidepressant,Urine Not Detected (NotDetected); Urn Cannabinoid Scrn Not Detected (NotDetected)
--- NOTE | 2023-09-29 13:04 | XR ---
EXAMINATION TYPE: XR KUB DATE OF EXAM: 09/29/2023 Comparison: None Clinical History: 28-year-old male Abdominal pain Findings: Lung bases are clear. No evidence for free intraperitoneal air. No dilated small bowel. Minimal stool in the right side of the colon. Air extends distally to the rec more. No suspicious calcifications are seen. Impression: No evidence for free air or bowel obstruction. Minimal stool in the right side of the abdomen.
[2023-09-29] MEDS: MAG HYDROX/AL HYDROX/SIMETH 30 ML, HYOSCYAMINE ELIXIR 10 ML PO STA (13:35)
[2023-09-29] MEDS: ONDANSETRON ODT 4 MG TAB PO STA (13:38)
[2023-09-29] MEDS: DIPHENOX-ATROP STARTER PACK 8 TAB BTL PO STA (13:38)
[2023-09-29] MEDS: ONDANSETRON 4 MG ODT STARTER PACK 2 TAB BTL PO STA (13:39)
[2023-09-29] MEDS: ACETAMINOPHEN TAB 500 MG TAB PO STA (13:39)
[2023-09-29 13:49] VITALS: BP 118/80; PULSE 8; RESP 18
== END 2023-09-29 13:49 | disposition home or self-care (01) ==
LOC: EC 09:34
DX: R19.7 Diarrhea, unspecified (principal); R10.9 Unspecified abdominal pain; F20.9 Schizophrenia, unspecified; F15.20 Other stimulant dependence, uncomplicated; F17.200 Nicotine dependence, unspecified, uncomplicated; Z88.6 Allergy status to analgesic agent
CPT/HCPCS: 99284; 36415; 80053; 85025; 81003; 80306; 74018; G0480; S0119; 80320

== ENCOUNTER 2023-10-18 04:25 | Inpatient (IN) | payer MEDICARE, MEDICAID ==
[2023-10-18] MEDS ORDERED: ZIPRASIDONE 20 MG VIAL IM ONE (17:25)
[2023-10-18] MEDS ORDERED: LORazepam 2 MG/ML INJ ONE (17:25)
[2023-10-18] MEDS ORDERED: traZODone HCL 50 MG TAB ONE (20:19)
[2023-10-19] MEDS ORDERED: NICOTINE 14MG/24HR PATCH TRANSDERM ONE (08:00)
[2023-10-19] MEDS ORDERED: traZODone HCL 50 MG TAB ONE (20:05)
[2023-10-20] MEDS ORDERED: LORazepam 1 MG TAB ONE ×2 (14:55)
[2023-10-21] MEDS ORDERED: LORazepam 1 MG TAB ONE (15:27)
[2023-10-21] MEDS ORDERED: haloperidoL 5 MG TAB ONE (18:22)
[2023-10-21] MEDS ORDERED: IBUPROFEN 600 MG TAB PO ONE (18:22)
[2023-10-21] MEDS ORDERED: NICOTINE 14MG/24HR PATCH TRANSDERM ONE (19:09)
[2023-10-22] MEDS ORDERED: NICOTINE 14MG/24HR PATCH TRANSDERM ONE (07:54)
[2023-10-22] MEDS ORDERED: LORazepam 1 MG TAB ONE (17:13)
[2023-10-22] MEDS ORDERED: HALOPERIDOL LACTATE 5 MG/ML 1 ML VIAL IM PRN (19:43)
[2023-10-22] MEDS ORDERED: traZODone HCL 50 MG TAB ONE (20:02)
[2023-10-23] MEDS ORDERED: LORazepam 2 MG/ML INJ IM PRN
[2023-10-23] MEDS ORDERED: MAG HYDROX/AL HYDROX/SIMETH 30 ML CUP PO PRN
[2023-10-23] MEDS ORDERED: traZODone HCL 50 MG TAB PO PRN
[2023-10-23] MEDS ORDERED: IBUPROFEN 600 MG TAB PO PRN
--- NOTE | 2023-10-23 10:00 | P.PN ---
Progress Note - Text Progress Note Date: 10/23/23 An attempt was made to engage the patient in a conversation and assessment Patient however continues to lay on the bed facing the other way and did not respond to any questions Patient appears to be in deep sleep Patient remains either uncooperative or unmotivated for this interview and does not respond to repeated attempts to wake him up We will discuss with the nursing staff regarding his current medications or any issues with oral medication or over sedation Jose Willingham MD
[2023-10-23] MEDS: NICOTINE 14MG/24HR PATCH TRANSDERM SCH (10:53)
[2023-10-23] MEDS: LORazepam 1 MG TAB PO PRN (16:58)
[2023-10-23] MEDS ORDERED: traZODone HCL 50 MG TAB ONE (22:04)
[2023-10-23] MEDS: traZODone HCL 50 MG TAB PO SCH (22:13)
[2023-10-24 07:22] VITALS: BP 114/75; PULSE 76; RESP 16; TEMP 97.6
[2023-10-24] MEDS ORDERED: NICOTINE 14MG/24HR PATCH TRANSDERM ONE (08:09)
--- NOTE | 2023-10-24 11:44 | P.PN ---
Progress Note - Text Progress Note Date: 10/24/23 Interval History: Patient was seen in his room, at the bedside. Patient remained silent, and did not acknowledge automobile service writer. He stayed covered completely with only his feet and matted hair coming out of the blanket. He refused to participate in the interview. Patient is refusing medication. Secluding to his room. Mental Status Exam: General Appearance: Patient is casually dressed. He is malodorous, with matted hair. Behavior: uncooperative, laying in bed, silent. Speech: unable to assess Mood/Affect: unable to assess Suicidality/Homicidality: unable to assess Perceptions: unable to assess Though content/process: unable to assess Memory and concentration: unable to assess Judgment and insight: unable to assess Assessment schizophrenia nicotine dependance Plan: -Patient continues to meet criteria for inpatient psychiatric admission for symptom stabilization and safety. Patient has not signed adult voluntary form or medication consent will await court hearing on 10/25 -Medications: Prolixin 2.5mg bid, trazodone 50mg po qhs. Patient currently refusing medication. -When necessary Ativan and Haldol for agitation/aggression. -NRT -nicotine patch -SW on board for discharge planning. Patient did not defer, court hearing 10/25
[2023-10-24] MEDS: MAGNESIUM HYDROXIDE 2,400 MG/30 ML CUP PO PRN (13:27)
[2023-10-24] MEDS: haloperidoL 5 MG TAB PO PRN (13:27)
[2023-10-24] MEDS: NICOTINE GUM (POLACRILEX) 2 MG GUM BUCCAL PRN (14:27)
--- NOTE | 2023-10-25 11:34 | P.PN ---
Progress Note - Text Progress Note Date: 10/25/23 Interval History: Patient was seen in his room, at the bedside. Patient continues to remain sile nt, and did not acknowledge blog writer. He stayed covered completely from head to toe. He refused to participate in the interview. Patient has taken his dose of Prolixin yesterday. Secluding to his room. Only coming out for a meal daily. Unable to completely assess patient due to him being noncooperative. Mental Status Exam: General Appearance: Patient is casually dressed. He is malodorous, with matted hair. Behavior: uncooperative, laying in bed, silent. Speech: unable to assess Mood/Affect: unable to assess Suicidality/Homicidality: unable to assess Perceptions: unable to assess Though content/process: unable to assess Memory and concentration: unable to assess Judgment and insight: unable to assess Assessment schizophrenia nicotine dependance Plan: -Patient continues to meet criteria for inpatient psychiatric admission for symptom stabilization and safety. Patient has not signed adult voluntary form or medication consent will await court hearing on 10/25 -Medications: Prolixin 2.5 mg bid for psychosis, trazodone 50 mg po qhs for insomnia/mood. -When necessary Ativan and Haldol for agitation/aggression -NRT - nicotine patch -SW on board for discharge planning. Patient did not defer, court hearing 10/25
--- NOTE | 2023-10-26 12:08 | P.PN ---
Progress Note - Text Progress Note Date: 10/26/23 Interval History: Patient was seen in his room, today, he was up and attending groups. He was a greeable to speak to insurance underwriter sales today. He consented to the court order for mental health treatment earlier today. He has been taking his medication since yesterday. Claims that he is getting good result with the Prolixin, denies any side effects at this time. He states that his mood and anxiety have been improving. We spoke about transitioning onto a long-acting injection which she is okay with. He appears to have improvement in his insight and judgment today. Claims that he had a bit of trouble sleeping last night asked for his trazodone to be increased. Claims that his appetite is mildly improving. At this time he is denying any suicidal homicidal ideations intent or plan. Denying any auditory or visual hallucinations. Mental Status Exam: General Appearance: Patient is casually dressed. Improving hygiene and grooming. Behavior: Cooperative today, no agitation. Speech: Fluent, nonpressured speech. Mood/Affect: Claims that his mood is mildly improving, affect is congruent. Suicidality/Homicidality: Denies Perceptions: Denies Though content/process: More logical today, more future oriented, no delusions or paranoia. Memory and concentration: Alert and oriented x 3, improvement in concentration. Judgment and insight: Improving mildly. Assessment schizophrenia nicotine dependance Plan: -Patient continues to meet criteria for inpatient psychiatric admission for symptom stabilization and safety. Patient has not signed adult voluntary form or medication consent will await court hearing on 10/25 -Medications: Increase Prolixin 3 mg bid for psychosis, patient is agreeable to be transitioned onto a long-acting injection will likely give tomorrow if patient is tolerating medication well, increase trazodone 100 mg po qhs for insomnia/mood. -When necessary Ativan and Haldol for agitation/aggression -NRT - nicotine patch -SW on board for discharge planning. Patient consented to a court order for mental health treatment on 10/25. Likely transition patient onto long-acting injection tomorrow, plan to hopeful discharge on Tuesday if patient is improving.
[2023-10-26] MEDS: traZODone HCL 100 MG TAB PO SCH (20:09)
--- NOTE | 2023-10-27 10:20 | P.PN ---
Progress Note - Text Progress Note Date: 10/27/23 Interval History: Patient was seen in his room, today. He claims that he is doing a bit better today. Claims that he is bit tired this morning however did claim that he slept through the night. He states that he is waiting for his long-acting injection today, we spoke more about it the transition onto the long-acting injection and also titrating down his p.o. medications. Appear to be more cooperative today, improving hygiene and grooming. Claims that he is getting good result with the P rolixin, denies any side effects at this time. He states that his mood and anxiety have been improving. He appears to have improvement in his insight and judgment today. Claims that his appetite is mildly improving. At this time he is denying any suicidal homicidal ideations intent or plan. Denying any auditory or visual hallucinations. Mental Status Exam: General Appearance: Patient is casually dressed. Improving hygiene and grooming. Behavior: Cooperative today, no agitation. Improving mildly Speech: Fluent, nonpressured speech. Mood/Affect: Claims that his mood is mildly improving, affect is congruent. Suicidality/Homicidality: Denies Perceptions: Denies Though content/process: More logical today, more future oriented, no delusions or paranoia. Memory and concentration: Alert and oriented x 3, improvement in concentration. Judgment and insight: Improving mildly. Assessment schizophrenia nicotine dependance Plan: -Patient continues to meet criteria for inpatient psychiatric admission for symptom stabilization and safety. Patient has not signed adult voluntary form or medication consent will await court hearing on 10/25 -Medications: continue with Prolixin 3 mg bid for psychosis, patient is agreeable to receive Prolixin D 25 mg IM today, next dose will be due in [id number] on 11/09, trazodone 100 mg po qhs for insomnia/mood. -When necessary Ativan and Haldol for agitation/aggression -NRT - nicotine patch - on board for discharge planning. Patient consented to a court order for mental health treatment on 10/25. Likely transition patient onto long-acting injection today, plan to hopeful discharge tomorrow if patient is improving.
[2023-10-27 11:37] VITALS: BMI 30.4
[2023-10-27] MEDS: fluPHENAZine DECANOATE 25 MG/ML 5ML MDV IM SCH (11:54)
[2023-10-27] MEDS: ACETAMINOPHEN TAB 325 MG TAB PO PRN (17:06)
--- NOTE | 2023-10-28 10:13 | P.DS ---
Providers Date of admission: 10/18/23 04:25 Expected date of discharge: 10/28/23 Attending physician: Olaf Souza MD Consults: 10/22/23 15:20 Consult Physician Routine Consulting Provider: Chencho Peace Consult Reason/Comments: medical management Do you want consulting provider notified?: Already Contacted Primary care physician: Stated None - Discharge Diagnosis(es) (1) Schizophrenia Current Visit: Yes Status: Acute Priority: High (2) Nicotine dependence Current Visit: Yes Status: Acute Priority: Low (3) Methamphetamine abuse Current Visit: Yes Status: Acute Priority: High Hospital Course: Admission HPI: Admission note was completed by freelance copywriter "Patient admitted involuntarily to the unit. Per petition filled out by cousin, "not gotten meds for schizophrenia in 22 days, stating he has to fight thing, talking about things that aren't there, jumping in front of cars, insisting that he is , and that things are inside him" He does state that he is not sleeping well. -HI/SI -AH/VH. Denies drug use, drug screen +methamphetamines" Hospital course: Upon admission to the unit patient was admitted involuntarily on a petition and certificate and a second certificate was completed and faxed with the courts. Patient ended up consenting to a treatment order for mental health treatment on 10/25. Patient was initially bizarre psychotic, kept to himself however at time of treatment he eventually got along well with other patients on the unit and followed unit protocol. Patient was compliant with the medications and denied any side effects throughout hospital course. Patient was started on Prolixin increased to dose of 3 mg twice daily for psychosis, he received Prolixin D20 5 mg IM on 10/26 tolerated it well, next dose will be doing every 2 weeks on 11/09. Trazodone 100 mg p.o. nightly for insomnia/mood. Patient spoke of his stressors and engaged in therapy both group and individual. Patient was also seen by medical team for history and physical exam. Throughout the course of the hospitalization patient gradually improved with regards to mood, anxiety, psychosis, sleep and returned back to their baseline level of functioning. On the day of discharge patient denied any suicidal or homicidal ideations intent or plan denied any auditory or visual hallucinations. Patient endorsed wanting to live for his health and family. The patient denied any access to guns or weapons. Patient denied any paranoia and did not endorse any delusions. Patient does have a significant history of substance abuse and was counseled on abstaining from all substances including alcohol and marijuana. Patient was offered however declined inpatient substance-abuse rehab. Patient was also counseled on the medications and need for regular compliance and was encouraged to follow-up with their outpatient appointment for mental health and also for primary care. Prior to discharge a family meeting will be arranged by social and human services assistant to answer any questions and ensure safety upon discharge. Mental status exam: General Appearance: Patient appears to be stated age is alert, pleasant, and cooperative. Patient is in no acute distress and has improved hygiene and grooming Behavior: Patient is calmly seated without any agitated behavior. Speech: Patient's speech is fluent and nonpressured. Mood/Affect: Patient reports their mood is "better", affect is congruent and euthymic. Suicidality/Homicidality: Patient denies having any suicidal or homicidal i deation intent or plan. Perceptions: Patient denies any auditory or visual hallucinations. Though content/process: There is no evidence of any delusional thought content and thought process is linear and goal-directed. More future oriented Memory and concentration: AOX3, grossly intact for the purposes of this session. Can spell "WORLD" backwards correctly. Judgment and insight: Chronically poor, however has improved with guarded prognosis Impression: schizophrenia methamphetamine abuse nicotine dependance Plan: -Continue with discharge today as patient has improved and stabilized psych iatrically and is not currently an imminent threat to himself and/or others. Patient will remain at chronically elevated risk for harm to self and/or others due to his impulsivity and substance abuse. -Continue medications: Continue Prolixin p.o. for 2 more days then discontinue. Patient was given Prolixin D 25 mg IM on 10/26, next dose will be doing q. 2 weeks on 11/09. Trazodone 100 mg nightly for insomnia/mood. -Patient was counseled on the need for medication compliance and appropriate follow-up at mental health and also primary care for medical issues. Patient verbalized understanding and agreed. -Social work to arrange for and conduct family meeting to ensure safety upon discharge and answer any questions/concerns. Social work also to arrange for patients follow up appointments with [facility] for psychiatric care along with follow up with primary care provider. -Patient counseled on abstaining from recreational drugs and marijuana and alcohol. Was informed/educated on the adverse effects on their physical and mental health. Patient verbally agreed and understood. Patient was offered substance abuse treatment however declined at this time. -Patient was instructed to return to the hospital or seek immediate medical care if their psychiatric or medical symptoms do worsen or reoccur. ] Allergies Allergy/AdvReac Type Severity Reaction Status Date / Time No Known Allergies Allergy Verified 10/22/23 15:19 Vital Signs Temp 97.6 F 10/24/23 06:40 Pulse 76 10/24/23 06:40 Resp 16 10/24/23 06:40 BP 114/75 10/24/23 06:40 Pulse Ox 97 10/24/23 06:40 FiO2 Intake & Output 10/27/23 10/28/23 10/28/23 18:59 06:59 18:59 Weight 99.2 kg Patient Condition at Discharge: Stable Plan - Discharge Summary New Discharge Prescriptions: New Nicotine 14Mg/24Hr Patch [Habitrol] 1 patch TRANSDERM DAILY 14 Days #14 patch fluPHENAZine decanoate [Prolixin Decanoate] 25 mg IM Q14D #1 ml traZODone HCL [Desyrel] 100 mg PO HS 30 Days #30 tab Nicotine Gum (Polacrilex) [Nicorette] 2 mg BUCCAL Q4HR PRN pieceofgum PRN Reason: Nicotine Cravings fluPHENAZine [Prolixin] 2 mg PO BID 2 Days #8 tab Follow up Appointment(s)/Referral(s): [facility] [Outside] - 11/04/23 10:00 am (11/04/2023 10:00AM - 11:00AM HEYDI AYALA 11/08/2023 9:00AM - 9:30AM RONALD ZIMMER ) Discharge Disposition: HOME SELF-CARE
== END 2023-10-28 15:28 | disposition home or self-care (01) | DRG 885 ==
LOC: 3MHU 04:25 → MERGE 04:25 → 3MHU 10-26 18:44
PROVIDERS: ADMIT Psychiatry & Neurology Psychiatry; ATTEND Psychiatry & Neurology Psychiatry
DX: F23 Brief psychotic disorder (principal); F15.10 Other stimulant abuse, uncomplicated; F17.200 Nicotine dependence, unspecified, uncomplicated; G47.00 Insomnia, unspecified; Z71.51 Drug abuse counseling and surveillance of drug abuser; Z79.899 Other long term (current) drug therapy
CPT/HCPCS: 99285

== ENCOUNTER 2023-11-25 15:33 | Emergency (ER) | payer MEDICARE, OTHER ==
--- NOTE | 2023-11-25 15:44 | ED ---
Psych HPI <Juventino Bejarano - Last Filed: 11/26/23 15:51> - General Source: police, RN notes reviewed, old records reviewed Mode of arrival: ambulatory Limitations: no limitations, altered mental status - History of Present Illness MD Complaint: altered mental status <Ming Garcia - Last Filed: 12/01/23 22:27> - General Stated Complaint: Mental Health Time Seen by Provider: 11/25/23 15:36 - History of Present Illness Initial Comments: This is a 28-year-old male presenting for psychiatric evaluation patient presents with persistent psychiatric illness but refusing to participate in history of present illness (Ming Garcia) - Related Data Home Medications Medication Instructions Recorded Confirmed traZODone HCL [Desyrel] 200 mg PO HS 11/25/23 11/25/23 Previous Rx's Medication Instructions Recorded fluPHENAZine decanoate [Prolixin 25 mg IM Q14D #1 ml 10/28/23 Decanoate] Allergies Allergy/AdvReac Type Severity Reaction Status Date / Time ibuprofen [From Motrin] AdvReac Abdominal Verified 11/25/23 16:06 Pain Review of Systems ROS Other: All systems not noted in ROS Statement are negative. <DarciJuventino - Last Filed: 11/26/23 15:51> ROS Other: All systems not noted in ROS Statement are negative. <Ming Garcia - Last Filed: 12/01/23 22:27> ROS Statement: Those systems with pertinent positive or pertinent negative responses have been documented in the HPI. Past Medical History Additional Past Medical History / Comment(s): Migraine History of Any Multi-Drug Resistant Organisms: None Reported Additional Past Surgical History / Comment(s): hand surgery Past Psychological History: Anxiety, Schizophrenia Smoking Status: Current every day smoker Past Alcohol Use History: Occasional Past Drug Use History: Marijuana <Ming Garcia - Last Filed: 12/01/23 22:27> General Exam General appearance: alert, in no apparent distress Head exam: Present: atraumatic, normocephalic, normal inspection Eye exam: Present: normal appearance, PERRL, EOMI. Absent: scleral icterus, conjunctival injection, periorbital swelling ENT exam: Present: normal exam, mucous membranes moist Neck exam: Present: normal inspection. Absent: tenderness, meningismus, lymphadenopathy Respiratory exam: Present: normal lung sounds bilaterally. Absent: respiratory distress, wheezes, rales, rhonchi, stridor Cardiovascular Exam: Present: regular rate, normal rhythm, normal heart sounds. Absent: systolic murmur, diastolic murmur, rubs, gallop, clicks GI/Abdominal exam: Present: soft, normal bowel sounds. Absent: distended, tenderness, guarding, rebound, rigid Extremities exam: Present: normal inspection, full ROM, normal capillary refill. Absent: tenderness, pedal edema, joint swelling, calf tenderness Back exam: Present: normal inspection Neurological exam: Present: alert, oriented X3, CN II-XII intact Psychiatric exam: Present: normal affect, normal mood Skin exam: Present: warm, dry, intact, normal color. Absent: rash <Ming Garcia - Last Filed: 12/01/23 22:27> Course <Ming Gracia - Last Filed: 12/01/23 22:27> Vital Signs 11/25/23 11/25/23 11/26/23 15:56 18:50 06:31 Temperature 97.9 F 98.7 F Pulse Rate 107 H 122 H 57 L Respiratory 20 18 Rate Blood Pressure 134/90 126/87 89/61 O2 Sat by Pulse 98 100 97 Oximetry 11/26/23 15:08 Temperature 98.0 F Pulse Rate 98 Respiratory 18 Rate Blood Pressure 104/69 O2 Sat by Pulse 97 Oximetry - Reevaluation(s) Reevaluation #1: 11/25/23 15:44 Medical records reviewed (Ming Garcia) Reevaluation #2: Medically clear for psychiatric evaluation (Ming Garcia) Reevaluation #4: Differential Mental Health Depression, anxiety, bipolar, psychosis, schizophrenia, borderline personality, situational depression, adjustment disorder, behavioral disorder, brain tumor, malingering, substance abuse, encephalopathy, medication reaction, dementia, hypothyroidism, degenerative neurologic disorder, lupus.... This is not meant to be all-inclusive list (Ming Garcia) Medical Decision Making <Juventino Bejarano - Last Filed: 11/26/23 15:51> - Medical Decision Making Patient was medically cleared by previous provider. Patient was evaluated by JODY García. Patient is cleared by psychiatry for discharge home. Patient given safety plan. Diagnosis/symptom? @ -Encounter for psychiatric evaluation. Acute, or Chronic, or Acute on Chronic? @ -Acute Uncomplicated (without systemic symptoms) or Complicated (systemic symptoms)? @ -Uncomplicated Side effects of treatment? @ -None Exacerbation, Progression, or Severe Exacerbation] @ -No Poses a threat to life or bodily function? @ -Unlikely (Juventino Bejarano) - Lab Data Lab Results 11/26/23 Range/Units 08:00 SARS-CoV-2 (PCR) Not Detected (Not Detectd) Disposition Is patient prescribed a controlled substance at d/c from ED?: No Time of Disposition: 13:30 <Juventino Bejarano - Last Filed: 11/26/23 15:51> Is patient prescribed a controlled substance at d/c from ED?: No <Ming Garcia - Last Filed: 12/01/23 22:27> Clinical Impression: Encounter for psychiatric assessment Disposition: HOME SELF-CARE Condition: Good Additional Instructions: follow safety plan Referrals: None,Stated [Primary Care Provider] - 1-2 days
[2023-11-26 06:36] VITALS: RESP 18
[2023-11-26 15:11] VITALS: BP 104/69; PULSE 98; TEMP 98
== END 2023-11-26 15:11 | disposition home or self-care (01) ==
LOC: EC 15:33
CPT/HCPCS: 82075; 87635; 99283

== ENCOUNTER 2024-01-03 17:32 | Inpatient (IN) | payer MEDICARE, MEDICAID ==
--- NOTE | 2024-01-03 19:01 | ED ---
General Adult HPI - General Chief complaint: Psychiatric Symptoms Stated complaint: mental health Time Seen by Provider: 01/03/24 18:10 Source: patient, police, RN notes reviewed, old records reviewed Limitations: no limitations - History of Present Illness Initial comments: This is a 28-year-old male brought into the emergency department by police. Patient was noncompliant with his meds and he walked out of his meeting with his [facility]. Patient refuses to talk and states he does not know why he is here and he does not know his name and he states he cannot remember if he is on any medications he cannot remember if he has any psychiatric history and he does not know if he has any medical problems. Patient is tearful throughout my interview - Related Data Home Medications Medication Instructions Recorded Confirmed traZODone HCL [Desyrel] 200 mg PO HS 11/25/23 11/25/23 Previous Rx's Medication Instructions Recorded fluPHENAZine decanoate [Prolixin 25 mg IM Q14D #1 ml 10/28/23 Decanoate] Allergies Allergy/AdvReac Type Severity Reaction Status Date / Time ibuprofen [From Motrin] AdvReac Abdominal Verified 01/03/24 18:10 Pain Review of Systems ROS Statement: Those systems with pertinent positive or pertinent negative responses have been documented in the HPI. ROS Other: All systems not noted in ROS Statement are negative. Past Medical History Additional Past Medical History / Comment(s): Migraine History of Any Multi-Drug Resistant Organisms: None Reported Additional Past Surgical History / Comment(s): hand surgery Past Psychological History: Anxiety, Schizophrenia Smoking Status: Current every day smoker Past Alcohol Use History: Occasional Past Drug Use History: Marijuana General Exam - General Exam Comments Initial Comments: GENERAL: Patient is well-developed and well-nourished. Patient is nontoxic and well- hydrated and is in no acute distress. ENT: Neck is soft and supple. No significant lymphadenopathy is noted. Oropharynx is clear. Moist mucous membranes. Neck has full range of motion without eliciting any pain. EYES: The sclera were anicteric and conjunctiva were pink and moist. Extraocular movements were intact and pupils were equal round and reactive to light. Eyelids were unremarkable. PULMONARY: Unlabored respirations. Good breath sounds bilaterally. No audible rales rhonchi or wheezing was noted. CARDIOVASCULAR: There is a regular rate and rhythm without any murmurs gallops or rubs. ABDOMEN: Soft and nontender with normal bowel sounds. SKIN: Skin is clear with no lesions or rashes and otherwise unremarkable. NEUROLOGIC: Patient is alert and oriented x3. Cranial nerves II through XII are grossly intact. Motor and sensory are also intact. Normal speech, volume and content. Symmetrical smile. MUSCULOSKELETAL: Normal extremities with adequate strength and full range of motion. LYMPHATICS: No significant lymphadenopathy is noted PSYCHIATRIC: Normal psychiatric evaluation. Limitations: no limitations Course Vital Signs 01/03/24 18:05 Temperature 98.4 F Pulse Rate 98 Respiratory 18 Rate Blood Pressure 118/79 O2 Sat by Pulse 97 Oximetry Medical Decision Making - Medical Decision Making Was pt. sent in by a medical professional or institution (, SANDRINE, BAGGAGE CHECKER, urgent care, hospital, or alf...) When possible be specific @ -[No] Did you speak to anyone other than the patient for history (EMS, parent, family, police, friend...)? What history was obtained from this source @ -No Did you review nursing and triage notes (agree or disagree)? Why? @ -I reviewed and agree with nursing and triage notes Were old charts reviewed (outside hosp., previous admission, EMS record, old EKG, old radiological studies, urgent care reports/EKG's, alf records)? Report findings @ -No old charts were reviewed Differential Diagnosis? @ -Differential Mental Health Depression, anxiety, bipolar, psychosis, schizophrenia, borderline personality, situational depression, adjustment disorder, behavioral disorder, brain tumor, malingering, substance abuse, encephalopathy, medication reaction, dementia, hypothyroidism, degenerative neurologic disorder, lupus.... This is not meant to be all-inclusive list EKG interpreted by me (3pts min.). @ -As above X-rays interpreted by me (1pt min.). @ -None done CT interpreted by me (1pt min.). @ -None done U/S interpreted by me (1pt. min.). @ -None done What testing was considered but not performed or refused? (CT, X-rays, U/S, labs)? Why? @ -None What meds were considered but not given or refused? Why? @ -None Did you discuss the management of the patient with other professionals (professionals i.e. , SANDRINE, BAGGAGE CHECKER, lab, RT, psych nurse, social professionals, wood bucker, teacher, inspectors and regulatory officers, case checker)? Give summary @ -I spoke with the EPS EPS agreed to admit the patient Was smoking cessation discussed for >3mins.? @ -No Was critical care preformed (if so, how long)? @ -No Were there social determinants of health that impacted care today? How? (Homelessness, low income, unemployed, alcoholism, drug addiction, transportation, low edu. Level, literacy, decrease access to med. care, fci, rehab)? @ -No Was there de-escalation of care discussed even if they declined (Discuss DNR or withdrawal of care, Hospice)? DNR status @ -No What co-morbidities impacted this encounter? (DM, HTN, Smoking, COPD, CAD, Cancer, CVA, ARF, Chemo, Hep., AIDS, mental health diagnosis, sleep apnea, morbid obesity)? @ -None Was patient admitted / discharged? Hospital course, mention meds given and route, prescriptions, significant lab abnormalities, going to OR and other pe rtinent info. @ -Patient had marijuana in his system as well as cocaine as well as methamphetamine. EPS evaluated the patient has determined since the patient was not giving any further history to the EPS person the patient would need to be brought upstairs and evaluated further Undiagnosed new problem with uncertain prognosis? @ -No Drug Therapy requiring intensive monitoring for toxicity (Heparin, Nitro, Insulin, Cardizem)? @ -No Were any procedures done? @ -No Diagnosis/symptom? @ -Acute psychosis Acute, or Chronic, or Acute on Chronic? @ -Acute Uncomplicated (without systemic symptoms) or Complicated (systemic symptoms)? @ -Complicated Side effects of treatment? @ -No Exacerbation, Progression, or Severe Exacerbation? @ -No Poses a threat to life or bodily function? How? (Chest pain, [place], [place], pneumonia, PE, COPD, DKA, ARF, appy, cholecystitis, CVA, Diverticulitis, Homicidal, Suicidal, threat to staff... and all critical care pts) @ -No Diagnosis/symptom? @ -Polysubstance abuse Acute, or Chronic, or Acute on Chronic? @ -Acute Uncomplicated (without systemic symptoms) or Complicated (systemic symptoms)? @ -Complicated Side effects of treatment? @ -None Exacerbation, Progression, or Severe Exacerbation] @ -No Poses a threat to life or bodily function? @ -No - Lab Data Lab Results 01/03/24 Range/Units 18:36 Urine Opiates Screen Not Detected (NotDetected) Ur Oxycodone Screen Not Detected (NotDetected) Urine Methadone Screen Not Detected (NotDetected) Ur Barbiturates Screen Not Detected (NotDetected) U Tricyclic Antidepress Not Detected (NotDetected) Ur Phencyclidine Scrn Not Detected (NotDetected) Ur Amphetamines Screen Detected H (NotDetected) U Methamphetamines Scrn Detected H (NotDetected) U Benzodiazepines Scrn Not Detected (NotDetected) Urine Cocaine Screen Detected H (NotDetected) U Marijuana (THC) Screen Detected H (NotDetected) Disposition Clinical Impression: Acute psychosis, Polysubstance abuse Disposition: ADMITTED IP TO THIS HOSP Referrals: None,Stated [Primary Care Provider] - 1-2 days Time of Disposition: 20:40
[2024-01-03 19:32] LABS: Amphetamine Screen,Urine Detected (NotDetected); Barbiturate Screen,Urine Not Detected (NotDetected); Benzodiazepines Screen,Urine Not Detected (NotDetected); Cocaine Screen,Urine Detected (NotDetected); Methadone Screen, Urine Not Detected (NotDetected); Opiate Screen,Urine Not Detected (NotDetected); Oxycodone Screen, Urine Not Detected (NotDetected); Phencyclidine Screen,Urine Not Detected (NotDetected); Tricyclic Antidepressant,Urine Not Detected (NotDetected); Urn Cannabinoid Scrn Detected (NotDetected)
[2024-01-03] MEDS ORDERED: MAGNESIUM HYDROXIDE 2,400 MG/30 ML CUP PO PRN (22:22)
[2024-01-03] MEDS ORDERED: HALOPERIDOL LACTATE 5 MG/ML 1 ML VIAL IM PRN (22:22)
[2024-01-03] MEDS ORDERED: ACETAMINOPHEN TAB 325 MG TAB PO PRN (22:22)
[2024-01-03] MEDS ORDERED: LORazepam 2 MG/ML INJ IM PRN (22:22)
[2024-01-03 23:58] LABS: Appearance,Urine Clear (Clear); Bilirubin,Urine Negative (Negative); Blood,Urine Negative (Negative); Color,Urine Light Yellow; Glucose,Urine (UA) Negative (Negative); Ketones,Urine Negative (Negative); Leukocyte Esterase,Urine Negative (Negative); Nitrite,Urine Negative (Negative); Protein,Urine Negative (Negative); Specific Gravity,Urine 1.012 (1.001-1.035); Urobilinogen,Urine <2.0 mg/dL (<2.0)
[2024-01-04] MEDS: NICOTINE 21MG/24HR PATCH TRANSDERM SCH (10:05)
[2024-01-04] MEDS ORDERED: flUPHENAZine 2.5 MG/ML (MDV) 10 ML VIAL IM PRN (12:49)
--- NOTE | 2024-01-04 13:01 | P.HP ---
Psychiatric H&P - . H&P Date: 01/04/24 History & Physical: Allergies Allergy/AdvReac Type Severity Reaction Status Date / Time ibuprofen [From Motrin] AdvReac Abdominal Verified 01/03/24 22:21 Pain Vital Signs Temp 97.4 F L 01/03/24 22:57 Pulse 112 H 01/04/24 07:01 Resp 15 01/03/24 22:57 BP 90/56 01/04/24 07:01 Pulse Ox 96 01/03/24 22:57 FiO2 Intake & Output 01/03/24 01/04/24 01/04/24 18:59 06:59 18:59 Weight 90.718 kg 93.1 kg Laboratory Last Values Urine Color Light Yellow 01/03/24 18:36 Urine Appearance Clear (Clear) 01/03/24 18:36 Urine pH 7.0 (5.0-8.0) 01/03/24 18:36 Ur Specific Quentin 1.012 (1.001-1.035) 01/03/24 18:36 Urine Protein Negative (Negative) 01/03/24 18:36 Urine Glucose (UA) Negative (Negative) 01/03/24 18:36 Urine Ketones Negative (Negative) 01/03/24 18:36 Urine Blood Negative (Negative) 01/03/24 18:36 Urine Nitrite Negative (Negative) 01/03/24 18:36 Urine Bilirubin Negative (Negative) 01/03/24 18:36 Urine Urobilinogen <2.0 mg/dL (<2.0) 01/03/24 18:36 Ur Leukocyte Esterase Negative (Negative) 01/03/24 18:36 Urine Opiates Screen Not Detected (NotDetected) 01/03/24 18:36 Ur Oxycodone Screen Not Detected (NotDetected) 01/03/24 18:36 Urine Methadone Screen Not Detected (NotDetected) 01/03/24 18:36 Ur Barbiturates Screen Not Detected (NotDetected) 01/03/24 18:36 U Tricyclic Antidepress Not Detected (NotDetected) 01/03/24 18:36 Ur Phencyclidine Scrn Not Detected (NotDetected) 01/03/24 18:36 Ur Amphetamines Screen Detected (NotDetected) H 01/03/24 18:36 U Methamphetamines Scrn Detected (NotDetected) H 01/03/24 18:36 U Benzodiazepines Scrn Not Detected (NotDetected) 01/03/24 18:36 Urine Cocaine Screen Detected (NotDetected) H 01/03/24 18:36 U Marijuana (THC) Screen Detected (NotDetected) H 01/03/24 18:36 SARS-CoV-2 (PCR) Not Detected (Not Detectd) 01/03/24 20:22 01/04/24 08:50 IDENTIFYING DATA: Patient is a 28-year-old -Swedish male. HPI: Patient presented to the hospital on 01/02. As per EPS note, "Patient arrived via PD for a courtorder cloth picker due to him not taking his injection. Patient ordered Aristada Initio 675MG, Aristada 882MG, and Abilify 30MG PO today for long acting injection, and patient refused to take medication. Patient is on current court order until 04/23/2024. Patient assessed in ER13 from [id number]. Patient uncooperative with magnetic tape typewriter operator, answering questions minimally stating "i don't know" for most responses. Patient uncooperative regarding suicidal ideations, homicidal ideations, auditory or visual hallucinations, or paranoia. Patient refusing to answer questions for magnetic tape typewriter operator at this time." Upon today's assessment, the patient verbalized that he does not think he needs to be here, and does not think any medications help him. He is a poor historian, and refuses to answer any questions, or take part in the interview. Poverty of content. He is laying in bed, rocking his hips, completely covered with a blanket.Unable to assess suicidal ideations or homicidal ideations. PAST PSYCHIATRIC HISTORY: Patient was last admitted to this unit in September 2023. He was discharged on Prolixin D. Patient has been noncompliant with his long- acting injections. He last received it 11/22 at [facility]. PMH:As per ER note ALLERGIES: as per EMR CHEMICAL DEPENDENCY HISTORY: as per HPI FAMILY PSYCHIATRIC/SUBSTANCE USE HISTORY: unable to gather SOCIAL HISTORY: unable to gather info MENTAL STATUS EXAM: General Appearance: Patient appears to be stated age, and does not attempt to cooperate]. Patient appears to have [poor] hygiene and grooming. Dressed in street clothes, longer, matted hair. Behavior: Patient is laying in bed, rocking his hips, uncooperative Speech: Patient's speech is very minimal Mood/Affect: Patient does not report their mood, affect is congruent and constricted. Suicidality/Homicidality: unable to assess Perceptions: unable to assess Though content/process: unable to assess Memory and concentration: unable to assess Judgment and insight: [poor] STRENGTHS/WEAKNESSES: strength is that patient is [resilient]. Weakness is that patient [has poor judgment and is impulsive] INTELLECT: [average] IMPRESSIONS: Schizophrenia methamphetamine abuse cocaine abuse Cannabis use disorder Nicotine dependence nonadhereance to medication PLAN: -Patient is admitted under court cloth picker order to MHU for stabilization of psychiatric symptoms and safety. Patient is currently on a court order -Medications : Will start patient on Prolixin 3mg PO bid, for psychosis, if patient refuses, please give IM Prolixin, trazodone 100mg qhs for sleep, -Ativan [and Haldol] PRN for agitation/aggression [-Patient was counselled on substance abuse and desired to cut back on use] -Patient was informed of the risks, benefits and side effects of the medication [and patient verbally consented to taking the medications. ] -Internal Medicine consult to perform medical evaluation and physical. -NRT - [nicotine patch] -SW on board for discharge planning. Encourage patient to participate in groups to work on coping skills. Patient is on a full order that expires 04/23/2024 01/04/24 12:44 01/04/24 13:00
[2024-01-04] MEDS: traZODone HCL 100 MG TAB PO SCH (22:31)
--- NOTE | 2024-01-05 10:11 | P.PN ---
Progress Note - Text Progress Note Date: 01/05/24 Interval History: Patient was seen in his room, and was directable and agreeable to speak with magazine writer at the bedside. The patient is more cooperative today, and tells magazine writer he is a bit drowsy today. The patient has not been out of his room much. He reports a poor appetite. He has been sleeping well. He is much more talkative today, answering questions appropriately. He is currently not attending groups. At this time patient denies any suicidal or homicidal ideations, intent or plan. Patient denies any auditory, visual hallucinations and denies any paranoia or delusions. Patient denies any side effects from the medications and has been compliant with meds. MENTAL STATUS EXAM: General Appearance: Patient appears to be stated age, and does not attempt to cooperate. Patient appears to have poor hygiene and grooming. Dressed in street clothes, longer, matted hair. Behavior: Patient is laying in bed, calm, more cooperative today Speech: Patient's speech is fluent and nonpressured Mood/Affect: Patient reports an "ok" mood, affect is congruent and constricted. Suicidality/Homicidality: Denies SI/HI Perceptions: Denies AH/VH Though content/process: more linear today, Memory and concentration: AOx3 Judgment and insight: Poor IMPRESSIONS: Schizophrenia methamphetamine abuse cocaine abuse Cannabis use disorder Nicotine dependence nonadhereance to medication PLAN: -Patient is admitted under court apple picker order to MHU for stabilization of psychiatric symptoms and safety. Patient is currently on a court order -Medications : Prolixin 3mg PO bid, for psychosis, if patient refuses, please give IM Prolixin, trazodone 100mg qhs for sleep, -Ativan and Haldol PRN for agitation/aggression -NRT -nicotine patch -SW on board for discharge planning. Encourage patient to participate in groups to work on coping skills. Patient is on a full order that expires 04/23/2024
[2024-01-05] MEDS: traZODone HCL 50 MG TAB PO SCH (21:27)
[2024-01-05] MEDS: LORazepam 1 MG TAB PO PRN (21:28)
--- NOTE | 2024-01-06 01:45 | P.CONS ---
History of Present Illness - Reason for Consult Consult date: 01/06/24 - History of Present Illness The patient is a 28-year-old male who was brought to the emergency room under police custody after walking out of his meeting with the [facility]. The patient was admitted to the mental health unit where he was seen and evaluated. The patient had rambling speech and tangential thought process. He reported that his grandfather is running for president and that he is part of the [employer] family. He also reports chronic mild diffuse pain which she is not able to attribute any specific diagnosis. Denies any additional complaints at the time of interview. Denies illicit substance, tobacco, or alcohol use. Denies experiencing chest discomfort, shortness of breath, fever, chills, cough, nausea, vomiting, abdominal pain, diarrhea. Review of systems: Pertinent positives and negatives as discussed in HPI, a complete review of systems was performed and all other systems are negative. Physical examination: General: non toxic, no distress, appears at stated age, normal weight Derm: no unusual rashes/lesions, no unusual ecchymoses, warm, dry Head: atraumatic, normocephalic, symmetric Eyes: EOMI, no lid lag, anicteric sclera ENT: Nose and ears atraumatic, no thrush, no pharyngeal erythema Neck: trachea midline, supple Mouth: no lip lesion, mucus membranes moist Cardiovascular: S1S2 reg, no murmur, no edema Lungs: CTA bilateral, no rhonchi, no rales , no accessory muscle use Abdominal: soft, nontender to palpation, no guarding Ext: no gross muscle atrophy, no contractures, Neuro: No gross focal neuro deficits noted Psych: Alert, oriented, appropriate affect Assessment: Polysubstance abuse Psychosis Imaging: EKG was performed showing sinus rhythm with sinus arrhythmia at 67 bpm as reviewed by me. Data Review: Reviewed with urine toxicology positive for marijuana, cocaine, and methamphetamine with UA unremarkable. Plan: Advised on the importance of cessation from substance use Defer management of psychosis to primary psychiatry service Monitor for signs of withdrawal from substances Thank you for allowing us to participate in the care of this patient. We will follow peripherally. Do not hesitate to contact us with questions. Someone can be reached from the [facility] hospitalist group at all hours of the day at [phone]. Past Medical History Additional Past Medical History / Comment(s): Migraine History of Any Multi-Drug Resistant Organisms: None Reported Additional Past Surgical History / Comment(s): hand surgery Past Anesthesia/Blood Transfusion Reactions: No Reported Reaction Past Psychological History: Anxiety, Schizophrenia Smoking Status: Current every day smoker, Vaper Past Alcohol Use History: Occasional Past Drug Use History: Cocaine, Marijuana, Methamphetamine Additional Drug Use History / Comment(s): UDS=methamphetamines, amphetamines, cocaine and marijuana Medications and Allergies Home Medications Medication Instructions Recorded Confirmed Type fluPHENAZine decanoate [Prolixin 25 mg IM Q14D #1 ml 10/28/23 01/03/24 Rx Decanoate] traZODone HCL [Desyrel] 200 mg PO HS 11/25/23 01/03/24 History Allergies Allergy/AdvReac Type Severity Reaction Status Date / Time ibuprofen [From Motrin] AdvReac Abdominal Verified 01/03/24 22:21 Pain Physical Exam Vitals: Vital Signs Pulse Resp BP 01/05/24 18:23 128 H 20 123/71
[2024-01-06] MEDS ORDERED: flUPHENAZine 2.5 MG/ML (MDV) 10 ML VIAL IM PRN (11:19)
--- NOTE | 2024-01-06 11:26 | P.PN ---
Progress Note - Text Progress Note Date: 01/06/24 Interval History: Patient was seen in his room, and was directable and agreeable to speak with underwriter at the bedside. The patient was sleeping, and a bit difficult to awaken. He states he it tired. He also states he is "the same" today. He claims the medications are not making a difference. He is secluding himself to his room. Devops Consultant went over different options for medications, the patient states he would like to be on Abilify, because that is what has helped him in the past. He is currently not attending groups. He reports a good appetite. At this time patient denies any suicidal or homicidal ideations, intent or plan. Patient denies any auditory, visual hallucinations and denies any paranoia or delusions. Patient denies any side effects from the medications and has been compliant with meds. MENTAL STATUS EXAM: General Appearance: Patient appears to be stated age, and does not attempt to cooperate. Patient appears to have poor hygiene and grooming. Dressed in street clothes, longer, matted hair. Behavior: Patient is laying in bed, calm, more cooperative today Speech: Patient's speech is fluent and nonpressured Mood/Affect: Patient reports an "the same" mood, affect is congruent and constricted. Suicidality/Homicidality: Denies SI/HI Perceptions: Denies AH/VH Though content/process: more linear today, Memory and concentration: AOx3 Judgment and insight: Poor IMPRESSIONS: Schizophrenia methamphetamine abuse cocaine abuse Cannabis use disorder Nicotine dependence nonadhereance to medication PLAN: -Patient is admitted under court lemon picker order to MHU for stabilization of psychiatric symptoms and safety. Patient is currently on a court order -Medications : add Abilify 7.5mg PO daily, titrate up as needed/tolerated for psychosis. If patient refuses give Prolixin IM, due to court order. D/C Prolixin PO, trazodone 100mg qhs for sleep, -Ativan and Haldol PRN for agitation/aggression -NRT -nicotine patch -SW on board for discharge planning. Encourage patient to participate in groups to work on coping skills. Patient is on a full order that expires 04/23/2024
[2024-01-06] MEDS: MAG HYDROX/AL HYDROX/SIMETH 355 ML BOTTLE PO PRN (17:55)
[2024-01-07] MEDS: ARIPiprazole 5 MG TAB PO SCH (09:20)
--- NOTE | 2024-01-07 14:21 | P.PN ---
Progress Note - Text Progress Note Date: 01/07/24 Interval History: Patient was seen in his room, and was directable and agreeable to speak with promotion writer at the bedside. The patient was sleeping and a bit difficult to awaken. patient continues to isolate to his room and is withdrawn during assessment. He states his mood is "tired ". He reports having reduced appetite and says he does not want to eat. Encouraged oral intake and he was agreeable with oral supplementation. Patient reports sleeping well and tolerating the medications well. He denies other concerns. At this time patient denies any suicidal or homicidal ideations, intent or plan. Patient denies any auditory, visual hallucinations and denies any paranoia or delusions. Patient denies any side effects from the medications and has been compliant with meds. MENTAL STATUS EXAM: General Appearance: Patient appears to be stated age, and does not attempt to cooperate. Patient appears to have poor hygiene and grooming. Dressed in street clothes, longer, matted hair. Behavior: Patient is laying in bed, calm, withdrawn Speech: Patient's speech is fluent and nonpressured Mood/Affect: Patient reports "tired" mood, affect is congruent and constricted. Suicidality/Homicidality: Denies SI/HI Perceptions: Denies AH/VH Though content/process: Somewhat illogical and disorganized at times Memory and concentration: AOx3 Judgment and insight: Poor IMPRESSIONS: Schizophrenia methamphetamine abuse cocaine abuse Cannabis use disorder Nicotine dependence nonadhereance to medication PLAN: -Patient is admitted under court olive picker order to MHU for stabilization of psychiatric symptoms and safety. Patient is currently on a court order -Medications : Increase Abilify to 15 mg PO daily, titrate up as needed/tolerated for psychosis. If patient refuses give Prolixin IM, due to court order. D/C Prolixin PO, trazodone 100mg qhs for sleep, -Ativan and Haldol PRN for agitation/aggression -NRT -nicotine patch -SW on board for discharge planning. Encourage patient to participate in groups to work on coping skills. Patient is on a full order that expires 04/23/2024
[2024-01-08] MEDS: ARIPiprazole 15 MG TAB PO SCH (09:45)
--- NOTE | 2024-01-08 14:25 | P.PN ---
Progress Note - Text Progress Note Date: 01/08/24 Interval History: Patient was seen in his room, and was directable and agreeable to speak with news writer at the bedside. Patient continues to isolate to his room and is withdrawn during assessment. He states his mood is "don't care". He says he does not care about the circumstances leading to hospitalization and was unwilling to discuss them further. He reports having reduced appetite and says he does not want to go to the dining room to eat. Encouraged oral intake and he was agreeable with o ral supplementation. Patient reports sleeping well and tolerating the medications well. He denies other concerns. At this time patient denies any suicidal or homicidal ideations, intent or plan. Patient denies any auditory, visual hallucinations and denies any paranoia or delusions. Patient denies any side effects from the medications and has been compliant with meds. MENTAL STATUS EXAM: General Appearance: Patient appears to be stated age, and does not attempt to cooperate. Patient appears to have poor hygiene and grooming. Dressed in street clothes, longer, matted hair. Behavior: Patient is laying in bed, calm, withdrawn Speech: Patient's speech is fluent and nonpressured Mood/Affect: irritable mood, affect is congruent and constricted. Suicidality/Homicidality: Denies SI/HI Perceptions: Denies AH/VH Though content/process: Linear Memory and concentration: AOx3 Judgment and insight: Poor IMPRESSIONS: Schizophrenia methamphetamine abuse cocaine abuse Cannabis use disorder Nicotine dependence nonadhereance to medication PLAN: -Patient is admitted under court peanut picker order to [facility]HU for stabilization of psychiatric symptoms and safety. Patient is currently on a court order -Medications : Continue Abilify 15 mg PO daily. If patient refuses give Prolixin IM, due to court order. D/C Prolixin PO, trazodone 100mg qhs for sleep, -Ativan and Haldol PRN for agitation/aggression -NRT -nicotine patch -SW on board for discharge planning. Encourage patient to participate in groups to work on coping skills. Patient is on a full order that expires 04/23/2024
[2024-01-09] MEDS: haloperidoL 5 MG TAB PO PRN (01:11)
--- NOTE | 2024-01-09 11:24 | P.PN ---
Progress Note - Text Progress Note Date: 01/09/24 Interval History: Patient was seen in his room, and was directable and agreeable to speak with administrative underwriter at the bedside. Patient appears to be a bit more cooperative today with administrative underwriter, more logical in his answers. He states that he is doing a bit better today, states that he is feeling a bit tired during the day, states that he is not sleeping that well at nighttime. We spoke about changing the Abilify dose to nighttime and he was okay with it. At this time he is denying any depression or anxiety, not reporting any side effects. States that he is mainly keeping himself in his room. Not going to many groups. He reports a good appetite. At this time patient denies any suicidal or homicidal ideations, intent or plan. Patient denies any auditory, visual hallucinations and denies any paranoia or delusions. Patient denies any side effects from the medications and has been compliant with meds. MENTAL STATUS EXAM: General Appearance: Patient appears to be stated age, and does not attempt to cooperate. Patient appears to have poor hygiene and grooming. Dressed in street clothes, longer, matted hair. Behavior: Patient is laying in bed, calm, more cooperative today, improving mildly Speech: Patient's speech is fluent and nonpressured Mood/Affect: Patient reports an "bit better" mood, affect is congruent and constricted. Improving mildly Suicidality/Homicidality: Denies SI/HI Perceptions: Denies AH/VH Though content/process: more linear today, more logical, not reporting any paranoia or delusions. Memory and concentration: AOx3 Judgment and insight: Poor, improving mildly IMPRESSIONS: Schizophrenia methamphetamine abuse cocaine abuse Cannabis use disorder Nicotine dependence nonadhereance to medication PLAN: -Patient is admitted under court fiber picker order to MHU for stabilization of psychiatric symptoms and safety. Patient is currently on a court order -Medications : Increase Abilify 20 mg PO HS for psychosis. If patient refuses give Prolixin IM, due to court order. will need to transition patient onto OTTO likely later on this week once he stabilizes more. trazodone 100mg qhs for sleep, -Ativan and Haldol PRN for agitation/aggression -NRT -nicotine patch -SW on board for discharge planning. Encourage patient to participate in groups to work on coping skills. Patient is on a full order that expires 04/23/2024.
--- NOTE | 2024-01-10 11:09 | P.PN ---
Progress Note - Text Progress Note Date: 01/10/24 Interval History: Patient was seen in his room, and was directable and agreeable to speak with financial writer at the bedside. Patient states that he is all right today. He is trying to go to some groups. He does report that he had problems initiating sleep last night, but once he fell asleep he stayed asleep. The patient reports that his energy level during the day is improving. At this time he is denying any depression or anxiety, not reporting any side effects. Roof Truss Detailer spoke to the patient about being transitioned onto an OTTO. Patient is agreeable. He reports a good appetite. At this time patient denies any suicidal or homicidal ideations, intent or plan. Patient denies any auditory, visual hallucinations and denies any paranoia or delusions. Patient denies any side effects from the medications and has been compliant with meds. MENTAL STATUS EXAM: General Appearance: Patient appears to be stated age, and attempts to cooperate. Patient appears to have poor hygiene and grooming. Dressed in street clothes, longer, matted hair. Behavior: Patient is laying in bed, calm, more cooperative today, improving mildly Speech: Patient's speech is fluent and nonpressured Mood/Affect: Patient reports an "all right" mood, affect is congruent and constricted. Improving mildly Suicidality/Homicidality: Denies SI/HI Perceptions: Denies AH/VH Though content/process: more linear today, more logical, not reporting any paranoia or delusions. Memory and concentration: AOx3 Judgment and insight: Poor, improving mildly IMPRESSIONS: Schizophrenia methamphetamine abuse cocaine abuse Cannabis use disorder Nicotine dependence nonadhereance to medication PLAN: -Patient is admitted under court grape picker order to MHU for stabilization of psychiatric symptoms and safety. Patient is currently on a court order -Medications : increase Abilify 25 mg PO HS for psychosis. If patient refuses give Prolixin IM, due to court order. will need to transition patient onto OTTO likely later on this week once he stabilizes more. increase trazodone 150mg qhs for sleep, -Ativan and Haldol PRN for agitation/aggression -NRT -nicotine patch -SW on board for discharge planning. Encourage patient to participate in groups to work on coping skills. Patient is on a full order that expires 04/23/2024. hopeful for discharge tuesday
[2024-01-10] MEDS: ARIPiprazole 5 MG TAB PO SCH (21:08)
--- NOTE | 2024-01-11 12:34 | P.PN ---
Progress Note - Text Progress Note Date: 01/11/24 Interval History: Patient was seen in his room, and was directable and agreeable to speak with gaston higuera at the bedside. Patient was also seen up walking around with other patients today socializing. He states that he is doing a bit better today, did claim that he feels at night he gets hot, did report a lower blood pressure this morning. Encourage fluids. Patient was agreeable to give blood tomorrow morning. He is trying to go to some groups. He does report that he had problems initiating sleep last night, but once he fell asleep he stayed asleep. At this time he is denying any depression or anxiety, not reporting any side effects. Immigration Investigator spoke to the patient about being transitioned onto an OTTO likely tomorrow if patient is tolerating medications fairly well. Patient is agreeable. He reports a good appetite. At this time patient denies any suicidal or homicidal ideations, intent or plan. Patient denies any auditory, visual hallucinations and denies any paranoia or delusions. Patient denies any side effects from the medications and has been compliant with meds. MENTAL STATUS EXAM: General Appearance: Patient appears to be stated age, and attempts to cooperate. Patient appears to have poor hygiene and grooming. Dressed in street clothes, longer, matted hair. Behavior: Patient is laying in bed, calm, more cooperative today, improving mildly Speech: Patient's speech is fluent and nonpressured Mood/Affect: Patient reports an "all right" mood, affect is congruent and constricted. Improving mildly Suicidality/Homicidality: Denies SI/HI Perceptions: Denies AH/VH Though content/process: more linear today, more logical, not reporting any paranoia or delusions. Memory and concentration: AOx3 Judgment and insight: improving mildly IMPRESSIONS: Schizophrenia methamphetamine abuse cocaine abuse Cannabis use disorder Nicotine dependence nonadhereance to medication PLAN: -Patient is admitted under court pickle processor order to MHU for stabilization of psychiatric symptoms and safety. Patient is currently on a court order -Medications : Abilify 25 mg PO HS for psychosis. If patient refuses give Prolixin IM, due to court order. Will need to transition patient onto OTTO, will give Abilify Maintenna likely tomorrow morning. trazodone 150mg qhs for sleep, -Check CBC with differential and comprehensive metabolic panel tomorrow morning -Ativan and Haldol PRN for agitation/aggression -NRT -nicotine patch -SW on board for discharge planning. Encourage patient to participate in groups to work on coping skills. Patient is on a full order that expires 04/23/2024. hopeful for discharge tuesday as patient will need to be safely transitioned onto OTTO.
[2024-01-11] MEDS: MELATONIN 3 MG TABLET PO SCH (21:14)
[2024-01-12 07:41] LABS: Basophils % (A) 1 %; Eosinophils # (A) 0.2 k/uL (0-0.7); Eosinophils % (A) 4 %; HCT 42.9 % (39.0-53.0); HGB 13.5 gm/dL (13.0-17.5); Lymphocytes % (A) 36 %; MCH 27.9 pg (25.0-35.0); MCHC 31.6 g/dL (31.0-37.0); MCV 88.5 fL (80.0-100.0); Mean Platelet Volume 7.4; Monocytes # (A) 0.4 k/uL (0-1.0); Monocytes % (A) 8 %; Neutrophils # (A) 2.7 k/uL (1.3-7.7); Neutrophils % (A) 49 %; Platelet Count 206 k/uL (150-450); RBC 4.85 m/uL (4.30-5.90); RDW 12.5 % (11.5-15.5); WBC 5.5 k/uL (3.8-10.6)
[2024-01-12 08:11] LABS: ALT 18 U/L (4-49); AST 18 U/L (17-59); African American GFR (CKD) >90 (>60 ml/min/1.73 sqM); Alkaline Phosphatase 77 U/L (38-126); Anion Gap 4 mmol/L; Blood Urea Nitrogen 6 mg/dL (9-20); Calcium 9.2 mg/dL (8.4-10.2); Carbon Dioxide 30 mmol/L (22-30); Chloride 104 mmol/L (98-107); Glucose 97 mg/dL (74-99); Non-African American GFR(CKD) >90 (>60 ml/min/1.73 sqM); Potassium 4.1 mmol/L (3.5-5.1); Sodium 138 mmol/L (137-145); Total Bilirubin 0.2 mg/dL (0.2-1.3); Total Protein 6.1 g/dL (6.3-8.2)
[2024-01-12 08:53] VITALS: BMI 27.8
--- NOTE | 2024-01-12 11:11 | P.PN ---
Progress Note - Text Progress Note Date: 01/12/24 Interval History: Patient was seen today in the office, agreeable to speak to appeals writer. Patient c laims that he is trying to go to some groups participate as best as he can. He is not reporting any side effects or problems with the medications denying any mood or anxiety problems. Patient was also seen up walking around with other patients today socializing. He states that he is doing a bit better today. He did speak about another patient on the unit who is a and his struggle during 11/08. Patient was able to give blood today, appeals writer reviewed the results with patient. That he slept a bit better last night. At this time he is denying any depression or anxiety, not reporting any side effects. Setter Molding And Coremaking Machines spoke to the patient about being transitioned onto an OTTO today and patient is agreeable to this. He reports a good appetite. At this time patient denies any suicidal or homicidal ideations, intent or plan. Patient denies any auditory, visual hallucinations and denies any paranoia or delusions. Patient denies any side effects from the medications and has been compliant with meds. MENTAL STATUS EXAM: General Appearance: Patient appears to be stated age, and attempts to cooperate. Patient appears to have improving hygiene and grooming. Dressed in street clothes, longer, matted hair. Behavior: Patient is laying in bed, calm, more cooperative today, improving mildly Speech: Patient's speech is fluent and nonpressured Mood/Affect: Patient reports an "ok" mood, affect is congruent and Improving mildly Suicidality/Homicidality: Denies SI/HI Perceptions: Denies AH/VH Though content/process: more linear today, more logical, not reporting any paranoia or delusions. Rambles at times Memory and concentration: AOx3 Judgment and insight: improving mildly IMPRESSIONS: Schizophrenia methamphetamine abuse cocaine abuse Cannabis use disorder Nicotine dependence nonadhereance to medication PLAN: -Patient is admitted under court continuous pickling line pickler order to MHU for stabilization of psychiatric symptoms and safety. Patient is currently on a court order -Medications : Abilify 25 mg PO HS for psychosis. If patient refuses give Prolixin IM, due to court order. Abilify Maintena 400 mg IM today, next dose will be due in 1 month on 02/08. Trazodone 150mg qhs for sleep/mood -Ativan and Haldol PRN for agitation/aggression -NRT -nicotine patch -SW on board for discharge planning. Encourage patient to participate in groups to work on coping skills. Patient is on a full order that expires 04/23/2024. hopeful for discharge tomorrow once patient is safely transition onto long- acting injection to help ensure compliance. Patient will be returning back home.
[2024-01-12] MEDS: ARIPiprazole IM SYRINGE 400 MG (NO CHARGE) PHARMACY STOCK IM ONE (11:18)
[2024-01-12] MEDS: NICOTINE GUM (POLACRILEX) 2 MG GUM BUCCAL PRN (16:15)
[2024-01-13 06:49] VITALS: BP 120/72; PULSE 54; RESP 18; TEMP 98.3
--- NOTE | 2024-01-13 11:16 | P.DS ---
Providers Date of admission: 01/03/24 21:36 Expected date of discharge: 01/13/24 Attending physician: Olaf Souza MD Consults: 01/03/24 22:22 Consult Physician Routine Consulting Provider: Chen Cortez Consult Reason/Comments: History and Physical, New Admission Do you want consulting provider notified?: Yes Primary care physician: Stated None - Discharge Diagnosis(es) (1) Schizophrenia Current Visit: No Status: Acute Priority: High (2) Cocaine abuse Current Visit: Yes Status: Acute Priority: High (3) Nonadherence to medication Current Visit: Yes Status: Acute Priority: High (4) Methamphetamine abuse Current Visit: No Status: Acute Priority: High (5) Nicotine dependence Current Visit: No Status: Acute Priority: Low Hospital Course: Admission HPI: Admission note was completed by service writer "Patient presented to the hospital on 01/02. As per EPS note, "Patient arrived via PD for a courtorder case picker due to him not taking his injection. Patient ordered Aristada Initio 675MG, Aristada 882MG, and Abilify 30MG PO today for long acting injection, and patient refused to take medication. Patient is on current court order until 04/23/2024. Patient assessed in ER13 from [id number]. Patient uncooperative with service writer, answering questions minimally stating "i don't know" for most responses. Patient uncooperative regarding suicidal ideations, homicidal ideations, auditory or visual hallucinations, or paranoia. Patient refusing to answer questions for service writer at this time." Upon today's assessment, the patient verbalized that he does not think he needs to be here, and does not think any medications help him. He is a poor historian, and refuses to answer any questions, or take part in the interview. Poverty of content. He is laying in bed, rocking his hips, completely covered with a blanket.Unable to assess suicidal ideations or homicidal ideations." Hospital course: Upon admission to the unit patient was admitted involuntarily on a active treatment order for mental health treatment. Patient was initially fairly isolative, keeping himself in his room, responding to internal stimuli, with time and treatment he eventually got along well with other patients on the unit and followed unit protocol. Patient was compliant with the medications and denied any side effects throughout hospital course. Patient was started on Abilify p.o. at the request of patient's guardian as patient allegedly had problems with Prolixin in the past and did not want to be on this. Patient tolerated Abilify fairly well in the past. Abilify was increased to dose of 25 mg qhs for mood stabilization/psychosis. Patient was given Abilify Maintenna 400 mg IM on 01/11, next monthly dose will be due on 02/08 at [facility] this is to help ensure compliance given patient's history of nonadherence. Patient is also started on trazodone increased to dose of 200 mg nightly for sleep/mood. Patient spoke of his stressors and engaged in therapy both group and individual. Patient was also seen by medical team for history and physical exam. Throughout the course of the hospitalization patient gradually improved with regards to mood, anxiety, psychosis, sleep and returned back to their baseline level of functioning. On the day of discharge patient denied any suicidal or homicidal ideations intent or plan denied any auditory or visual hallucinations. Patient endorsed wanting to live for his health and family. The patient denied any access to guns or weapons. Patient denied any paranoia and did not endorse any delusions. Patient does have a significant history of substance abuse and was counseled on abstaining from all substances including alcohol and marijuana. Patient was offered however declined inpatient substance-abuse rehab. Patient elected to do outpatient substance use treatment program through [facility]. Patient was also counseled on the medications and need for regular compliance and was encouraged to follow-up with their outpatient appointment for mental health and also for primary care. Prior to discharge a family meeting will be arranged by social insurance analyst to answer any questions and ensure safety upon discharge. Patient will be discharged back to preadmission address with [facility] follow-up. [employer] requested that patient be elevated in his level of care and [facility] services to either neck step or ACT team. Mental status exam: General Appearance: Patient appears to be tall, long matted hair, unshaven, stated age is alert, pleasant, and cooperative. Patient is in no acute distress and has improved hygiene and grooming Behavior: Patient is calmly seated without any agitated behavior. attempts to cooperate. pleasant Speech: Patient's speech is fluent and nonpressured. Mood/Affect: Patient reports their mood is "fine", affect is congruent Suicidality/Homicidality: Patient denies having any suicidal or homicidal ideation intent or plan. Perceptions: Patient denies any auditory or visual hallucinations. Though content/process: There is no evidence of any delusional thought content and thought process is linear and goal-directed. rambles at times Memory and concentration: AOX3, grossly intact for the purposes of this session. Can spell "WORLD" backwards correctly. Judgment and insight: Chronically poor, however has improved with guarded p rognosis Impression: Schizophrenia methamphetamine abuse cocaine abuse Cannabis use disorder Nicotine dependence nonadhereance to medication Plan: -Continue with discharge today as patient has improved and stabilized psychiatrically and is not currently an imminent threat to himself and/or others. Patient will remain at chronically elevated risk for harm to self and/or others due to his impulsivity, polysubstance abuse and chronic mental illness. -Continue medications: Continue with Abilify p.o. for 13 more days then discontinue. Patient was given Abilify Maintena 400 mg IM on 01/11, next monthly maintenance dose will be due on 02/08 at [facility]. Trazodone 200 mg nightly for sleep/mood. -Patient was counseled on the need for medication compliance and appropriate follow-up at mental health and also primary care for medical issues. Patient verbalized understanding and agreed. -Social work to arrange for and conduct family meeting to ensure safety upon discharge and answer any questions/concerns. Social work also to arrange for patients follow up appointments with [facility] for psychiatric care along with follow up with primary care provider. -Patient counseled on abstaining from recreational drugs and marijuana and alcohol. Was informed/educated on the adverse effects on their physical and mental health. Patient verbally agreed and understood. Patient was offered substance abuse treatment however declined at this time. -Patient was instructed to return to the hospital or seek immediate medical care if their psychiatric or medical symptoms do worsen or reoccur. Allergies Allergy/AdvReac Type Severity Reaction Status Date / Time ibuprofen from Motrin AdvReac Abdominal Verified 01/03/24 22:21 Pain Laboratory Results WBC 5.5 k/uL (3.8-10.6) 01/12/24 07:20 RBC 4.85 m/uL (4.30-5.90) 01/12/24 07:20 Hgb 13.5 gm/dL (13.0-17.5) 01/12/24 07:20 Hct 42.9 % (39.0-53.0) 01/12/24 07:20 MCV 88.5 fL (80.0-100.0) 01/12/24 07:20 MCH 27.9 pg (25.0-35.0) 01/12/24 07:20 MCHC 31.6 g/dL (31.0-37.0) 01/12/24 07:20 RDW 12.5 % (11.5-15.5) 01/12/24 07:20 Plt Count 206 k/uL (150-450) 01/12/24 07:20 MPV 7.4 01/12/24 07:20 Neutrophils % 49 % 01/12/24 07:20 Lymphocytes % 36 % 01/12/24 07:20 Monocytes % 8 % 01/12/24 07:20 Eosinophils % 4 % 01/12/24 07:20 Basophils % 1 % 01/12/24 07:20 Neutrophils # 2.7 k/uL (1.3-7.7) 01/12/24 07:20 Lymphocytes # 2.0 k/uL (1.0-4.8) 01/12/24 07:20 Monocytes # 0.4 k/uL (0-1.0) 01/12/24 07:20 Eosinophils # 0.2 k/uL (0-0.7) 01/12/24 07:20 Basophils # 0.0 k/uL (0-0.2) 01/12/24 07:20 Sodium 138 mmol/L (137-145) 01/12/24 07:20 Potassium 4.1 mmol/L (3.5-5.1) 01/12/24 07:20 Chloride 104 mmol/L (98-107) 01/12/24 07:20 Carbon Dioxide 30 mmol/L (22-30) 01/12/24 07:20 Anion Gap 4 mmol/L 01/12/24 07:20 BUN 6 mg/dL (9-20) L 01/12/24 07:20 Creatinine 0.82 mg/dL (0.66-1.25) 01/12/24 07:20 Est GFR (CKD-EPI)AfAm >90 (>60 ml/min/1.73 sqM) 01/12/24 07:20 Est GFR (CKD-EPI)NonAf >90 (>60 ml/min/1.73 sqM) 01/12/24 07:20 Glucose 97 mg/dL (74-99) 01/12/24 07:20 Calcium 9.2 mg/dL (8.4-10.2) 01/12/24 07:20 Total Bilirubin 0.2 mg/dL (0.2-1.3) 01/12/24 07:20 AST 18 U/L (17-59) 01/12/24 07:20 ALT 18 U/L (4-49) 01/12/24 07:20 Alkaline Phosphatase 77 U/L (38-126) 01/12/24 07:20 Total Protein 6.1 g/dL (6.3-8.2) L 01/12/24 07:20 Albumin 4.0 g/dL (3.5-5.0) 01/12/24 07:20 Urine Color Light Yellow 01/03/24 18:36 Urine Appearance Clear (Clear) 01/03/24 18:36 Urine pH 7.0 (5.0-8.0) 01/03/24 18:36 Ur Specific Perry 1.012 (1.001-1.035) 01/03/24 18:36 Urine Protein Negative (Negative) 01/03/24 18:36 Urine Glucose (UA) Negative (Negative) 01/03/24 18:36 Urine Ketones Negative (Negative) 01/03/24 18:36 Urine Blood Negative (Negative) 01/03/24 18:36 Urine Nitrite Negative (Negative) 01/03/24 18:36 Urine Bilirubin Negative (Negative) 01/03/24 18:36 Urine Urobilinogen <2.0 mg/dL (<2.0) 01/03/24 18:36 Ur Leukocyte Esterase Negative (Negative) 01/03/24 18:36 Urine Opiates Screen Not Detected (NotDetected) 01/03/24 18:36 Ur Oxycodone Screen Not Detected (NotDetected) 01/03/24 18:36 Urine Methadone Screen Not Detected (NotDetected) 01/03/24 18:36 Ur Barbiturates Screen Not Detected (NotDetected) 01/03/24 18:36 U Tricyclic Antidepress Not Detected (NotDetected) 01/03/24 18:36 Ur Phencyclidine Scrn Not Detected (NotDetected) 01/03/24 18:36 Ur Amphetamines Screen Detected (NotDetected) H 01/03/24 18:36 U Methamphetamines Scrn Detected (NotDetected) H 01/03/24 18:36 U Benzodiazepines Scrn Not Detected (NotDetected) 01/03/24 18:36 Urine Cocaine Screen Detected (NotDetected) H 01/03/24 18:36 U Marijuana (THC) Screen Detected (NotDetected) H 01/03/24 18:36 SARS-CoV-2 (PCR) Not Detected (Not Detectd) 01/03/24 20:22 Vital Signs Temp 98.3 F 01/13/24 06:00 Pulse 54 L 01/13/24 06:00 Resp 18 01/13/24 06:00 BP 120/72 01/13/24 06:00 Pulse Ox 99 01/13/24 06:00 FiO2 Intake & Output 01/12/24 01/13/24 01/13/24 18:59 06:59 18:59 Weight 93.1 kg Patient Condition at Discharge: Stable Plan - Discharge Summary Discharge Rx Participant: Yes New Discharge Prescriptions: New Nicotine 21Mg/24Hr Patch [Habitrol] 1 patch TRANSDERM DAILY 14 Days #14 patch ARIPiprazole [Abilify] 30 mg PO HS 13 Days #13 tab ARIPiprazole IM [Abilify Maintena] 400 mg IM QMONTHLY #1 each Melatonin 6 mg PO HS 30 Days #60 tab Nicotine Gum (Polacrilex) [Nicorette] 2 mg BUCCAL Q4HR PRN pieceofgum PRN Reason: Nicotine Cravings traZODone HCL 200 mg PO HS 30 Days #60 tablet Discontinued fluPHENAZine decanoate [Prolixin Decanoate] 25 mg IM Q14D #1 ml traZODone HCL [Desyrel] 200 mg PO HS Discharge Medication List ARIPiprazole IM [Abilify Maintena] 400 mg IM QMONTHLY #1 each 01/13/24 [Rx] ARIPiprazole [Abilify] 30 mg PO HS 13 Days #13 tab 01/13/24 [Rx] Melatonin 6 mg PO HS 30 Days #60 tab 01/13/24 [Rx] Nicotine 21Mg/24Hr Patch [Habitrol] 1 patch TRANSDERM DAILY 14 Days #14 patch 01/13/24 [Rx] Nicotine Gum (Polacrilex) [Nicorette] 2 mg BUCCAL Q4HR PRN pieceofgum 01/13/24 [Rx] traZODone HCL 200 mg PO HS 30 Days #60 tablet 01/13/24 [Rx] Follow up Appointment(s)/Referral(s): Mary,Culinary Instructor [Other] - As Needed (Pati- Mary Culinary Instructor will contact you upon discharge to assist with any after-care needs.) [facility] [Outside] - 01/16/24 10:00 am (01/16/2024 10:00AM - 11:00AM KULDEEP QUINONEZ 01/20/2024 1:00PM - 1:30PM ELOISA JENKINS ) None,Stated [Primary Care Provider] - 1-2 days Patient Instructions/Handouts: How to Stop Smoking (DC), Cocaine Abuse (DC), Schizophrenia (DC), Methamphetamine Abuse (DC) Activity/Diet/Wound Care/Special Instructions: Avoid the use of street drugs and alcohol. Take all medications as prescribed. When you are in need of refills on your medications, please contact your medical provider and/or outpatient psychiatrist/provider to have this done. Please go to your scheduled outpatient appointment for aftercare treatment. If symptoms return or become worse, call the crisis line at and/or go to the nearest emergency room for evaluation. National Suicide Hotline 988 Discharge Disposition: HOME SELF-CARE
== END 2024-01-13 18:17 | disposition home or self-care (01) | DRG 885 ==
LOC: EC 17:32 → 3MHU 21:36 → EEVIPCON 21:36 → 3MHU 01-07 18:49
PROVIDERS: ADMIT Psychiatry & Neurology Psychiatry; ATTEND Psychiatry & Neurology Psychiatry
DX: F20.9 Schizophrenia, unspecified (principal); F29 Unspecified psychosis not due to a substance or known physiological condition; F12.10 Cannabis abuse, uncomplicated; F14.10 Cocaine abuse, uncomplicated; T43.96XA Underdosing of unspecified psychotropic drug, initial encounter; Z91.128 Patient's intentional underdosing of medication regimen for other reason; G43.909 Migraine, unspecified, not intractable, without status migrainosus; F15.10 Other stimulant abuse, uncomplicated; F17.200 Nicotine dependence, unspecified, uncomplicated; F17.290 Nicotine dependence, other tobacco product, uncomplicated; F41.9 Anxiety disorder, unspecified; Z79.899 Other long term (current) drug therapy; Z91.199 Patient's noncompliance with other medical treatment and regimen due to unspecified reason; Z71.51 Drug abuse counseling and surveillance of drug abuser; Z11.52 Encounter for screening for COVID-19; Z28.21 Immunization not carried out because of patient refusal; Z28.310 Unvaccinated for COVID-19; Z88.6 Allergy status to analgesic agent; Z71.89 Other specified counseling
CPT/HCPCS: 80053; 80306; 81003; 82075; 85025; 87635; 93005; 99285

== ENCOUNTER 2024-01-16 19:37 | Inpatient (IN) | payer MEDICARE, MEDICAID ==
--- NOTE | 2024-01-16 20:05 | ED ---
Psych HPI - General Source: patient, police, RN notes reviewed Mode of arrival: ambulatory <Jennifer Mendoza - Last Filed: 01/16/24 20:04> <Beto Lopez - Last Filed: 01/17/24 01:24> - General Chief Complaint: Psychiatric Symptoms Stated Complaint: Petitioned Time Seen by Provider: 01/16/24 20:04 - History of Present Illness Initial Comments: Quick note: 28-year-old male accompanied by the [facility] department presenting to the ER for mental health evaluation. Patient is petition. Patient denies any current complaints. No SI, HI or hallucinations. Patient does report he smokes marijuana from the dispensary. No other drugs or alcohol. (Jennifer Mendoza) Dictation was produced using [employer] dictation software. please excuse any grammatical, word or spelling errors. Chief Complaint: 28-year-old male presents to the emergency department for psychiatric evaluation History of Present Illness: Patient 28-year-old male with history of schizophrenia he was recently admitted to inpatient psychiatric unit. Was discharged recently. Patient allegedly had a pickup order. He was picked up by [facility]'s. Patient not sure why he is here. He denies any medical complaints. Denies any suicidal homicidal ideation The ROS documented in this emergency department record has been reviewed and confirmed by me. Those systems with pertinent positive or negative responses have been documented in the HPI. All other systems are other negative and/or noncontributory. (Beto Lopez) - Related Data Previous Rx's Medication Instructions Recorded ARIPiprazole IM [Abilify Maintena] 400 mg IM QMONTHLY #1 each 01/13/24 ARIPiprazole [Abilify] 30 mg PO HS 14 Days #14 tab 01/13/24 Melatonin 6 mg PO HS 30 Days #60 tab 01/13/24 Nicotine 21Mg/24Hr Patch [Habitrol] 1 patch TRANSDERM DAILY 14 Days 01/13/24 #14 patch Nicotine Gum (Polacrilex) 2 mg BUCCAL Q4HR PRN pieceofgum 01/13/24 [Nicorette] traZODone HCL 200 mg PO HS 30 Days #60 tablet 01/13/24 Allergies Allergy/AdvReac Type Severity Reaction Status Date / Time ibuprofen [From Motrin] AdvReac Abdominal Verified 01/16/24 19:43 Pain Review of Systems ROS Other: All systems not noted in ROS Statement are negative. <Jennifer Mendoza - Last Filed: 01/16/24 20:04> ROS Other: All systems not noted in ROS Statement are negative. <Beto Lopez - Last Filed: 01/17/24 01:24> ROS Statement: Those systems with pertinent positive or pertinent negative responses have been documented in the HPI. Past Medical History Additional Past Medical History / Comment(s): Migraine History of Any Multi-Drug Resistant Organisms: None Reported Additional Past Surgical History / Comment(s): hand surgery Past Anesthesia/Blood Transfusion Reactions: No Reported Reaction Past Psychological History: Anxiety, Schizophrenia Smoking Status: Current every day smoker, Vaper Past Alcohol Use History: Occasional Past Drug Use History: Cocaine, Marijuana, Methamphetamine <Jennifer Mendoza - Last Filed: 01/16/24 20:04> General Exam Limitations: no limitations <Jennifer Mendoza - Last Filed: 01/16/24 20:04> <Beto Lopez - Last Filed: 01/17/24 01:24> - General Exam Comments Initial Comments: Visual Physical Exam Vital signs reviewed General: Unkept, nontoxic, no acute distress. Head: Normocephalic, atraumatic Eyes: PERRLA, EOMI ENT: Airway patent Chest: Nonlabored breathing Skin: No visual rash, normal skin tone Neuro: Alert and oriented 3 Musculoskeletal: No gross abnormalities (Jennifer Mendoza) General: Well-appearing, nontoxic, no acute distress. Head: Normocephalic, atraumatic Eyes: PERRLA, EOMI ENT: Airway patent Chest: Nonlabored breathing Skin: No visual rash, normal skin tone Neuro: Alert and oriented 3 Musculoskeletal: No gross abnormalities (Beto Lopez) Course Vital Signs 01/16/24 19:38 Temperature 98.1 F Pulse Rate 112 H Respiratory 16 Rate Blood Pressure 142/91 O2 Sat by Pulse 100 Oximetry Medical Decision Making <Jennifer Mendoza - Last Filed: 01/16/24 20:04> <Beto Lopez - Last Filed: 01/17/24 01:24> - Medical Decision Making I performed the quick note portion of this chart. Electronically signed by Jennifer Mendoza PA-C (Jennifer Mendoza) Was pt. sent in by a medical professional or institution ([facility] Herrera, [employer], urgent care, hospital, or skilled nursing...) When possible be specific @ -No Did you speak to anyone other than the patient for history (EMS, parent, family, police, friend...)? What history was obtained from this source @ -Pickup order Did you review nursing and triage notes (agree or disagree)? Why? @ -I reviewed and agree with nursing and triage notes Were old charts reviewed (outside hosp., previous admission, EMS record, old EKG, old radiological studies, urgent care reports/EKG's, skilled nursing records)? Report findings @ -Pickup order documentation was reviewed Differential Diagnosis (chest pain, altered mental status, abdominal pain women, abdominal pain men, vaginal bleeding, musculoskeletal, weakness, fever, dyspnea, syncope, headache, dizziness, GI bleed, back pain, seizure, CVA, palpatations, mental health)? @ -Differential Mental Health: Depression, anxiety, bipolar, psychosis, schizophrenia, borderline personality, situational depression, adjustment disorder, behavioral disorder, brain tumor, malingering, substance abuse, encephalopathy, medication reaction, dementia, hypothyroidism, degenerative neurologic disorder, lupus.... This is not meant to be all-inclusive list EKG interpreted by me (3pts min.). @ -None done X-rays interpreted by me (1pt min.). @ -None done CT interpreted by me (1pt min.). @ -None done U/S interpreted by me (1pt. min.). @ -None done What testing was considered but not performed or refused? (CT, X-rays, U/S, labs)? Why? @ -None What meds were considered but not given or refused? Why? @ -None Was smoking cessation discussed for >3mins.? @ -No Were there social determinants of health that impacted care today? How? (Homelessness, low income, unemployed, alcoholism, drug addiction, transportation, low edu. Level, literacy, decrease access to med. care, fci, rehab)? @ -No Was there de-escalation of care discussed even if they declined (Discuss DNR or withdrawal of care, Hospice)? DNR status @ -No What co-morbidities impacted this encounter? (DM, HTN, Smoking, COPD, CAD, Cancer, CVA, ARF, Chemo, Hep., AIDS, mental health diagnosis, sleep apnea, morbid obesity)? @ -None Was patient admitted / discharged? Hospital course, mention meds given and route, prescriptions, significant lab abnormalities, going to OR and other pertinent info. @ -28-year-old male presents as a pickup order. Patient allegedly has a pickup order for psychiatric evaluation. Vital signs upon arrival are within acceptable limits. Physical examination is benign. Patient has no medical complaints. Patient medically cleared for EPS evaluation Patient eval by EPS will be admitted to mental health unit. Did you discuss the management of the patient with other professionals (professionals i.e. , PA, [employer], lab, RT, psych nurse, child welfare social worker, care aide, teacher, enforcement officer, community case manager)? Give summary @ -Case discussed with EPS Was critical care preformed (if so, how long)? @ -No Undiagnosed new problem with uncertain prognosis? @ -No Drug Therapy requiring intensive monitoring for toxicity (Heparin, Nitro, Insulin, Cardizem)? @ -No Were any procedures done? @ -No Diagnosis/symptom? Acute, or Chronic, or Acute on Chronic? Uncomplicated (without systemic symptoms) or Complicated (systemic symptoms)? @ -Psychiatric evaluation Side effects of treatment? @ -No Exacerbation, Progression, or Severe Exacerbation? @ -No Poses a threat to life or bodily function? How? (Chest pain, [place], [place], pneumonia, PE, COPD, DKA, ARF, appy, cholecystitis, CVA, Diverticulitis, Homicidal, Suicidal, threat to staff... and all critical care pts) @ -yws (Beto Lopez) - Lab Data Lab Results 01/16/24 Range/Units 21:30 Urine Opiates Screen Not Detected (NotDetected) Ur Oxycodone Screen Not Detected (NotDetected) Urine Methadone Screen Not Detected (NotDetected) Ur Barbiturates Screen Not Detected (NotDetected) U Tricyclic Antidepress Not Detected (NotDetected) Ur Phencyclidine Scrn Not Detected (NotDetected) Ur Amphetamines Screen Detected H (NotDetected) U Methamphetamines Scrn Detected H (NotDetected) U Benzodiazepines Scrn Not Detected (NotDetected) Urine Cocaine Screen Detected H (NotDetected) U Marijuana (THC) Screen Detected H (NotDetected) Disposition <Jennifer Mendoza - Last Filed: 01/16/24 20:04> Decision Time: 01:24 <Beto Lopez - Last Filed: 01/17/24 01:24> Clinical Impression: Psychiatric complaint Disposition: ADMITTED IP TO THIS [facility] Condition: Fair Referrals: Delgado Edwards MD [Primary Care Provider] - 1-2 days
[2024-01-16 22:16] LABS: Cocaine Screen,Urine Detected (NotDetected); Phencyclidine Screen,Urine Not Detected (NotDetected); Urn Cannabinoid Scrn Detected (NotDetected)
[2024-01-16 22:17] LABS: Amphetamine Screen,Urine Detected (NotDetected); Barbiturate Screen,Urine Not Detected (NotDetected); Benzodiazepines Screen,Urine Not Detected (NotDetected); Methadone Screen, Urine Not Detected (NotDetected); Opiate Screen,Urine Not Detected (NotDetected); Oxycodone Screen, Urine Not Detected (NotDetected); Tricyclic Antidepressant,Urine Not Detected (NotDetected)
[2024-01-17] MEDS ORDERED: LORazepam 2 MG/ML INJ IM PRN (02:53)
[2024-01-17] MEDS ORDERED: LORazepam 1 MG TAB PO PRN (02:53)
[2024-01-17] MEDS ORDERED: MAGNESIUM HYDROXIDE 2,400 MG/30 ML CUP PO PRN (02:53)
[2024-01-17 04:25] VITALS: RESP 15
[2024-01-17 04:50] LABS: Appearance,Urine Clear (Clear); Bilirubin,Urine Negative (Negative); Blood,Urine Negative (Negative); Color,Urine Colorless; Glucose,Urine (UA) 1+ (Negative); Ketones,Urine Negative (Negative); Leukocyte Esterase,Urine Negative (Negative); Nitrite,Urine Negative (Negative); PH, Urine 6.5 (5.0-8.0); Protein,Urine Negative (Negative); Specific Gravity,Urine 1.018 (1.001-1.035); Urobilinogen,Urine <2.0 mg/dL (<2.0)
--- NOTE | 2024-01-17 09:24 | P.CONS ---
History of Present Illness - Reason for Consult Consult date: 01/17/24 Medical management - History of Present Illness Ino To is a 28-year-old male patient who was brought in to the ER by the counseling department chair department and was petitioned due to delusional behavior and drug intoxication. patient has a history of schizophrenia with previous admissions to the mental health unit. Per nursing staff patient was recently started on Abilify. Drug screen positive for methamphetamines cocaine and marijuana. During exam patient refused to take blanket off his face did not want to talk or be examined. Current vital signs temp 98.1, heart rate 112, respiratory rate 16, blood pressure 117/72 with a pulse ox of 98% on room air. At this time patient has been admitted to the mental health unit Review of Systems Please refer to HPI otherwise unremarkable Past Medical History Additional Past Medical History / Comment(s): Migraine History of Any Multi-Drug Resistant Organisms: None Reported Additional Past Surgical History / Comment(s): hand surgery Past Anesthesia/Blood Transfusion Reactions: No Reported Reaction Smoking Status: Current every day smoker, Vaper Medications and Allergies Home Medications Medication Instructions Recorded Confirmed Type ARIPiprazole IM [Abilify Maintena] 400 mg IM QMONTHLY #1 each 01/13/24 01/17/24 Rx ARIPiprazole [Abilify] 30 mg PO HS 14 Days #14 tab 01/13/24 01/17/24 Rx Melatonin 6 mg PO HS 30 Days #60 tab 01/13/24 01/17/24 Rx Nicotine 21Mg/24Hr Patch [Habitrol] 1 patch TRANSDERM DAILY 14 Days 01/13/24 01/17/24 Rx #14 patch Nicotine Gum (Polacrilex) 2 mg BUCCAL Q4HR PRN pieceofgum 01/13/24 01/17/24 Rx [Nicorette] traZODone HCL 200 mg PO HS 30 Days #60 tablet 01/13/24 01/17/24 Rx Allergies Allergy/AdvReac Type Severity Reaction Status Date / Time ibuprofen [From Motrin] AdvReac Abdominal Verified 01/17/24 03:32 Pain Physical Exam Vitals: Vital Signs Temp Pulse Pulse Resp BP BP Pulse Ox 01/17/24 04:12 97.5 F L 101 H 15 117/72 98 01/16/24 19:38 98.1 F 112 H 16 142/91 100 Intake and Output 01/16/24 01/17/24 01/17/24 22:59 06:59 14:59 Other: Weight 95.254 kg 94.489 kg Patient refused examination Results Labs: Abnormal Lab Results - Last 24 Hours (Table) 01/16/24 01/17/24 Range/Units 21:30 00:00 Urine Glucose (UA) 1+ H (Negative) Ur Amphetamines Screen Detected H (NotDetected) U Methamphetamines Scrn Detected H (NotDetected) Urine Cocaine Screen Detected H (NotDetected) U Marijuana (THC) Screen Detected H (NotDetected) Assessment and Plan Assessment: 1. Psychosis 2. Drug intoxication patient positive for methamphetamines, amphetamines cocaine and marijuana 3. History of schizophrenia patient was recently started on Abilify during recent admission to mental health unit 4. Ongoing nicotine dependence 5. History of migraines Thank you for this consultation. We will continue to follow patient closely throughout stay
[2024-01-17] MEDS: NICOTINE 14MG/24HR PATCH TRANSDERM SCH (09:50)
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
[2024-01-17] MEDS ORDERED: ARIPiprazole 15 MG TAB PO SCH (21:00)
[2024-01-17] MEDS: ARIPiprazole 15 MG TAB PO SCH (22:10)
[2024-01-17] MEDS: MELATONIN 3 MG TABLET PO SCH (22:10)
[2024-01-17] MEDS: traZODone HCL 100 MG TAB PO SCH (22:10)
[2024-01-18] MEDS ORDERED: flUPHENAZine 2.5 MG/ML (MDV) 10 ML VIAL IM PRN (10:58)
--- NOTE | 2024-01-18 11:01 | P.PN ---
Progress Note - Text Progress Note Date: 01/18/24 Interval History: Patient was seen today laying in his bed. He had the blankets covering him. He was fairly evasive guarded. He only answered some questions fairly concretely. States that he is doing "fine" and claims that he wants to just be left alone to sleep. He continues to mainly isolate in his room not going to many groups, continues have poor hygiene and grooming. When asked about refusing medications last night he states that "I just went to bed I did not refuse them". He was reminded again about the court order for taking medications. He is not endorsing any delusions at this time. Denies any auditory or visual hallucinations. Denies any suicidal or homicidal ideations intent or plan. MENTAL STATUS EXAM: General Appearance: Patient appears to be stated age, and does not attempt to cooperate. Patient appears to have poor hygiene and grooming. Dressed in street clothes, longer, matted hair. Behavior: Patient is laying in bed, uncooperative, evasive Speech: Patient's speech is very minimal, concrete and monotone Mood/Affect: Patient claims his mood is "tired", affect is congruent and constricted. Suicidality/Homicidality: Denies Perceptions: Denies Though content/process: [place], evasive. Not endorsing delusions at this time Memory and concentration: Oriented x 3, poor attention span Judgment and insight: Poor/impulsive IMPRESSIONS: Schizophrenia methamphetamine abuse cocaine abuse Cannabis use disorder Nicotine dependence nonadhereance to medication PLAN: -Patient is admitted under court picker tender order to [facility]HU for stabilization of psychiatric symptoms and safety. Patient is currently on a court order -Medications : Abilify p.o. 30 mg nightly for psychosis/mood stabilization, if patient refuses p.o. Abilify then please give IM Prolixin. Patient was given Abilify Maintenna 400 mg IM on 01/11 for psychosis, next dose will be due on 02/08. trazodone 200mg qhs for sleep -Ativan and Haldol PRN for agitation/aggression -NRT -nicotine patch -SW on board for discharge planning. Encourage patient to participate in groups to work on coping skills. Patient is on a full order that expires 04/23/2024
[2024-01-18] MEDS: NICOTINE GUM (POLACRILEX) 2 MG GUM BUCCAL PRN (20:03)
[2024-01-18] MEDS: MAG HYDROX/AL HYDROX/SIMETH 355 ML BOTTLE PO PRN (20:20)
[2024-01-18] MEDS: LORazepam 1 MG TAB PO PRN (22:59)
--- NOTE | 2024-01-19 11:25 | P.PN ---
Progress Note - Text Progress Note Date: 01/19/24 Interval History: Patient was seen today wandering the hallways, agreeable to speak to board writer in the office. He appears to be more awake today, states that he slept fairly last night. He continues to have illogical thoughts, continues to believe that his grandmother is not his guardian and claims that he has paperwork. He also spoke about "black Tuesday deals" continues to have fairly poor insight and judgment into his condition and need for treatment. He was asking about discharge. He w as also demonstrating loose associations disorganized thoughts, denies any rec drug use. continues have poor hygiene and grooming. He did take his medications last night and this morning. We spoke about an adjunct antipsychotic medication such as Invega or Seroquel or Zyprexa and patient claims that Seroquel makes him "angry" and claims that he had success with Zyprexa in the past and agreed to try that. He was reminded again about the court order for taking medications. Denies any auditory or visual hallucinations. Denies any suicidal or homicidal ideations intent or plan. MENTAL STATUS EXAM: General Appearance: Patient appears to be stated age, and does not attempt to cooperate. Patient appears to have poor hygiene and grooming. Dressed in street clothes, longer, matted hair. Behavior: Patient is laying in bed, mildly more cooperative, bizarre at times Speech: Patient's speech is very minimal, concrete and monotone Mood/Affect: Patient claims his mood is "same", affect is congruent and constricted. Suicidality/Homicidality: Denies Perceptions: Denies Though content/process: [place], evasive. illogical thoughts, loose associations. Memory and concentration: Oriented x 3, improving attention span Judgment and insight: Poor/impulsive IMPRESSIONS: Schizophrenia methamphetamine abuse cocaine abuse Cannabis use disorder Nicotine dependence nonadhereance to medication PLAN: -Patient is admitted under court hop picker order to MHU for stabilization of psychiatric symptoms and safety. Patient is currently on a court order -Medications : decrease Abilify p.o. 20 mg nightly for psychosis/mood stabilization, if patient refuses p.o. Abilify then please give IM Prolixin. Patient was given Abilify Maintenna 400 mg IM on 01/11 for psychosis, next dose will be due on 02/08. change trazodone 00mg qhs prn for sleep. melatonin increase to 10 mg qhs for sleep. added zyprexa 5 mg qhs for psychosis adjunct. considering switching patient onto Invega PO then OTTO if his sx are not adequetly controlled with Abilify OTTO. -Ativan and Haldol PRN for agitation/aggression -NRT -nicotine patch -SW on board for discharge planning. Encourage patient to participate in groups to work on coping skills. Patient is on a full order that expires 04/23/2024. p[norbert garcia/grandma wants a family meeting early next week to discuss patients care/treatment.
[2024-01-19] MEDS: MELATONIN 5 MG TABLET PO SCH (21:01)
[2024-01-19] MEDS: OLANZapine 5 MG TAB PO SCH (21:01)
[2024-01-19] MEDS: traZODone HCL 100 MG TAB PO PRN (21:08)
[2024-01-20] MEDS ORDERED: flUPHENAZine 2.5 MG/ML (MDV) 10 ML VIAL IM PRN (11:08)
--- NOTE | 2024-01-20 11:14 | P.PN ---
Progress Note - Text Progress Note Date: 01/20/24 Interval History: Patient was seen today wandering the hallways, agreeable to speak to copywriter in the office. He continues to have disheveled hair, appearance. He continues to ramble, have loose associations. When asked to reflect back on decision-making for coming to the hospital he spoke about the police offering him different medications, he refused. He continues to be very superficial about his symptoms, he continues to have disorganized thoughts and difficulty with attention span. Looking around the room at times. He did state that he slept a bit better last night with the Zyprexa. We spoke about trying a different antipsychotic and he was agreeable to try Risperdal as he has not tried it in the past. continues have poor hygiene and grooming. He did take his medications last night and this morning. Has a fair appetite. Denies any auditory or visual hallucinations. Denies any suicidal or homicidal ideations intent or plan. MENTAL STATUS EXAM: General Appearance: Patient appears to be stated age, and does not attempt to cooperate. Patient appears to have poor hygiene and grooming. Dressed in street clothes, longer, matted hair. Behavior: Patient is sitting in the chair, officially cooperative, bizarre at times, looking around the room Speech: Patient's speech is very minimal, concrete and monotone Mood/Affect: Patient claims his mood is "fine i guess", affect is incongruent and constricted. Suicidality/Homicidality: Denies Perceptions: Denies Though content/process: [place], evasive. illogical thoughts, loose associations. confused at times. disorganized thoughts. 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 Patient is currently on a court order -Medications : d/c Abilify p.o. due to percieved ineffectiveness. Start risperdal 1 mg bid PO for mood stabilization/psychosis. if patient refuses p.o. risperdal then please give IM Prolixin. Patient was given Abilify Maintenna 400 mg IM on 01/11 for psychosis. increase trazodone 150mg qhs prn for sleep. melatonin 10 mg qhs for sleep. d/c zyprexa -Ativan and Haldol PRN for agitation/aggression -NRT -nicotine patch -SW on board for discharge planning. Encourage patient to participate in groups to work on coping skills. Patient is on a full order that expires 04/23/2024. patients gaurdian/grandma wants a family meeting early next week to discuss patients care/treatment. due to ineffectiveness of abilify will need to switch antipsychotic to risperdal and attempt to transition onto OTTO.
[2024-01-20] MEDS: risperiDONE 1 MG TAB PO SCH (11:15)
[2024-01-21 06:29] VITALS: TEMP 97.4
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
[2024-01-21] MEDS: traZODone HCL 50 MG TAB PO PRN (20:03)
[2024-01-21] MEDS: ACETAMINOPHEN TAB 325 MG TAB PO PRN (23:44)
--- NOTE | 2024-01-22 11:04 | P.PN ---
Progress Note - Text Progress Note Date: 01/22/24 Interval history: Patient was seen at the bedside and was directable and agreeable to speak with database report writer. He woke from sleep and was willing to engage. He describes his mood as "good" today but did note that he is feeling tired. He slept last night and appetite has been stable. He reports experiencing his "normal voices" today. An example he shared if this is when he is playing a sport they may tell him to "pay more attention". He denies any other commands or the voices saying things that are mean to him. He he is eager to be discharged from the hospital and was a bit guarded when asked how conversations with his grandmother are going. At this time patient denies any suicidal or homicidal ideations intent or plan. Denies any auditory or visual hallucinations. Patient denies any side effects from the medications and has been compliant with meds. Mental status exam: General Appearance: Patient appears to be stated age is alert, directable, and cooperative. Remains covered by blankets for the duration of the visit. No eye contact. Behavior: No agitated behavior. Patient is calm and directable Speech: Patient's speech is fluent and nonpressured. Mood/Affect: Mood is "good", unable to assess affect due to patient being covered by blankets. Suicidality/Homicidality: Patient denies having any suicidal or homicidal ideation intent or plan. Perceptions: Patient reports "normal" auditory hallucinations; denies visual hallucinations. Though content/process: There is no evidence of any overt delusional thought content and thought process is linear and goal-directed, some paucity of thought, not elaborative. Memory and concentration: AOX3, grossly intact for the purposes of this session Judgment and insight: fair Assessment/Plan: Continue with current diagnoses: Schizophrenia, methamphetamine use disorder, cocaine use disorder, cannabis use disorder, medication non-adherence. Patient continues to meet criteria for inpatient psychiatric admission for symptom stabilization and safety. Admitted on a court order (expires 04/23/24). Patient will be maintained on current psychotropic medication regimen. Recently transitioned from PO Abilify to Risperdal 1 mg BID due to perceived ineffectiveness of PO Abilify. Received Abilify Maintena 400 mg IM on 01/12/24. Continue Trazodone 150 mg QHS for sleep and Melatonin 10 mg QHS. Monitor for medication compliance and for any psychotropic medication side effects. Will continue to monitor ongoing response to treatment. Encouraged participation in milieu.
--- NOTE | 2024-01-23 11:03 | P.PN ---
Progress Note - Text Progress Note Date: 01/23/24 Interval History: Patient was seen today wandering the hallways, agreeable to speak to credit underwriter in the office. Patient appears to have mild improvement in his hygiene and grooming. He was more directable today during conversation, answer questions more appropriately today. Claims that he did talk to his grandmother over the phone however states that "she still being unreasonable" and claims that they did have misunderstandings. States that he is trying to go to groups socializing with other peers on the unit. Thought process appears to be improving, more logical today. We spoke about doing a family meeting with his grandmother/guardian and [facility] hopefully today and also the plan to be transitioning to a different long-acting injection to help ensure compliance. We also did speak about drug use however patient remains fairly superficial about his substance use. States he is sleeping fairly at nighttime, denies any problems of appetite. Denies any auditory or visual hallucinations. Denies any suicidal or homicidal ideations intent or plan. MENTAL STATUS EXAM: General Appearance: Patient appears to be stated age, and does not attempt to cooperate. Patient appears to have improving hygiene and grooming. Dressed in street clothes, longer, matted hair. Behavior: Patient is sitting in the chair, officially cooperative, more appropriate today Speech: Patient's speech is very minimal, concrete and monotone Mood/Affect: Patient claims his mood is "better", affect is congruent Suicidality/Homicidality: Denies Perceptions: Denies Though content/process: [place], more logical today, improving thought content and process. Not reporting any paranoia or delusions Memory and concentration: Oriented x 3, improving attention span Judgment and insight: Chronically poor, improving mildly IMPRESSIONS: Schizophrenia methamphetamine abuse cocaine abuse Cannabis use disorder Nicotine dependence nonadhereance to medication PLAN: -Patient is admitted under court vegetable picker order to MHU for stabilization of psychiatric symptoms and safety. Patient is currently on a court order -Medications : increase risperdal 1 mg daily + 2 mg qhs for mood stabilization/psychosis. if patient refuses p.o. risperdal then please give IM Prolixin. will likely give loading dose of invega sustenna tomorrow prior to discharge. Patient was given Abilify Maintenna 400 mg IM on 01/11 for psychosis, will d/c. trazodone 150mg qhs prn for sleep. melatonin 10 mg qhs for sleep -Ativan and Haldol PRN for agitation/aggression -NRT -nicotine patch - on board for discharge planning. Encourage patient to participate in groups to work on coping skills. Patient is on a full order that expires 04/23/2024. Will attempt to do a family meeting over the phone with [facility] and including guardian/grandmother today to speak about due change to patient's medications and plan and prepare for likely discharge tomorrow. Patient will be transitioned onto Invega Sustenna starting tomorrow.
[2024-01-23] MEDS: risperiDONE 2 MG TAB PO SCH (20:39)
[2024-01-24 06:50] VITALS: PULSE 99
[2024-01-24] MEDS: risperiDONE 1 MG TAB PO SCH (08:57)
[2024-01-24 09:47] VITALS: BP 117/81
--- NOTE | 2024-01-24 10:34 | P.DS ---
Providers Date of admission: 01/17/24 02:51 Expected date of discharge: 01/24/24 Attending physician: Olaf Souza MD Consults: 01/17/24 02:53 Consult Physician Routine Consulting Provider: Delgado Edwards Consult Reason/Comments: For H & P for Medical Follow Up Do you want consulting provider notified?: Yes, Notify in am Primary care physician: Delgado Edwards - Discharge Diagnosis(es) (1) Schizophrenia Current Visit: Yes Status: Acute Priority: High (2) Cocaine abuse Current Visit: Yes Status: Acute Priority: High (3) Methamphetamine abuse Current Visit: Yes Status: Acute Priority: High (4) Cannabis use disorder Current Visit: Yes Status: Acute Priority: Medium (5) Nicotine dependence Current Visit: Yes Status: Acute Priority: Low (6) Nonadherence to medication Current Visit: Yes Status: Acute Priority: High Hospital Course: Admission HPI: Admission note was completed by mortgage loan underwriter "Patient is a 28-year-old - [place]og[place] male currently lives with his brother. Patient presented to the hospital on 01/15 was brought in by [facility] department for psychiatric evaluation, patient was petitioned. Patient was discharged from the mental health unit last week, received Abilify Maintena injection on 01/11. Patient has a history of schizophrenia polysubstance abuse. As per EPS note, "pt lying on stretcher in room. pt yawning and stating that his medications are making him too tired, but that they are working well. When asked why he was brought to the ER, pt states, "I dunno. The arash said, 'Have a bonfire' and that wasn't me. I was sleeping." pt is vague with answers and instead keeps attempting to sleep. pt denies SI, HI, and hallucinations. pt denies any issues with sleep as well as change in appetite. pt states that he uses marijuana "Whenever I go get it," but denies other substance use. UDS positive for amphetamines, methamphetamines, cocaine, and marijuana. Envelope Addresser contacted Mobile Crisis Unit to obtain further information as pick-up order has sheet on front from [facility]. The following information was gathered from [facility]. Rafi and Martha had both been to see pt at home today. Rafi's note states, "Envelope Addresser and MK Thomas met with Ino in his home. Doc paced throughout the visit and presented with labile affect, emotions shifting from agitated, fearful and cheerful throughout. Ino further presented with thought blocking, delusions and paranoia. 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 Ino handed mortgage loan underwriter an envelope with a stock picture of a dog. Ino claimed the dog was his and someone had stolen the dog. Ino attempted to hand mortgage loan underwriter $20.00 to help find the dog. Ino showed mortgage loan underwriter and MK Thomas multiple pieces of mail, each piece having own meaning pertaining to missing money, missing cars, tools etc. Ino stated he was sleeping, eating and taking his medications. Ino showed mortgage loan underwriter and MK Thomas his medications, mortgage loan underwriter observed 11 Abilify from his script of 13 but was unable to verify Inos other oral medications." [facility] contacted Dr. Rapp who approved pick-up order be completed and both Dr. Rapp and [facility] recommended inpatient admission." Upon today's assessment, patient was laying in bed, appeared to be disheveled, he was fairly evasive with mortgage loan underwriter, vague. Claims that he only smoked "a little bit of pot" before coming into the hospital. He denied any other recreational drug use. He states that "someone told me the backyard was on fire" and states that it was not. He has poor insight poor judgment. Was requesting to be discharged today. Poor reality testing. Poverty of content. He is laying in bed, rocking his hips, completely covered with a blanket.denies any auditory or visual loose [place] denies any suicidal homicidal ideations intent or plan" Hospital course: Upon admission to the unit patient was admitted on a active mental health treatment order which expires on 04/23/2024. Patient got along well with other patients on the unit and followed unit protocol. Patient was compliant with the medications and denied any side effects throughout hospital course. Patient was started on Risperdal 1 mg daily +2 mg nightly for mood stabilization/psychosis. Patient will be given Invega Sustenna 234 mg IM on 01/23, next dose of 156 mg IM will be due on 01/30, monthly maintenance dose of 117 mg IM will be due on 02/26. Abilify Maintenna was discontinued. Trazodone 150 mg nightly as needed for sleep, melatonin 10 mg nightly for sleep. Patient spoke of his stressors and engaged in therapy both group and individual. Patient was also seen by medical team for history and physical exam. Throughout the course of the hospitalization patient gradually improved with regards to mood, anxiety, psychosis, sleep and returned back to their baseline level of functioning. On the day of discharge patient denied any suicidal or homicidal ideations intent or plan denied any auditory or visual hallucinations. Patient endorsed wanting to live for their health, future and family. The patient denied any access to guns or weapons. Patient denied any paranoia and did not endorse any delusions. Patient does have a significant history of substance abuse and was counseled on abstaining from all substances including alcohol and marijuana. Patient was offered however declined inpatient substance-abuse rehab. Patient elected to do outpatient substance use treatment program through their outpatient provider.. Patient was also counseled on the medications and need for regular compliance and was encouraged to follow-up with their outpatient appointment for mental health and also for primary care. Prior to discharge a family meeting will be arranged by social work instructor, cm team and mortgage loan underwriter to answer any questions and ensure safety upon discharge incuding making sure that guns/weapons are either removed from the home or locked away. Mental status exam: General Appearance: Patient appears to be cooperative, stated age is alert, pleasant, and cooperative. Patient is in no acute distress and has improved hygiene and grooming Behavior: Patient is calmly seated without any agitated behavior. More cooperative today Speech: Patient's speech is fluent and nonpressured. Mood/Affect: Patient reports their mood is "good", affect is congruent and euthymic. Suicidality/Homicidality: Patient denies having any suicidal or homicidal ideation intent or plan. Perceptions: Patient denies any auditory or visual hallucinations. Though content/process: There is no evidence of any delusional thought content and thought process is linear and goal-directed. More future oriented Memory and concentration: AOX3, grossly intact for the purposes of this session. Can spell "WORLD" backwards correctly. Judgment and insight: Chronically poor, however has improved with guarded prognosis Impression: Schizophrenia Cocaine abuse Methamphetamine abuse Cannabis use disorder Nonadherence to medications Nicotine dependence Plan: -Continue with discharge today as patient has improved and stabilized psychiatrically and is not currently an imminent threat to themself and/or others. Patient will remain at chronically elevated risk for harm to self and/or others due to their impulsivity and substance abuse. -Continue medications: Continue Risperdal p.o. for 3 more days then discontinue. Patient will be given Invega Sustenna 234 mg IM on 01/23, next dose of 156 mg IM will be due on 01/30, monthly maintenance dose of 117 mg IM will be due on 02/26. Trazodone 150 mg nightly as needed for sleep, melatonin 10 mg nightly for sleep. -Patient was counseled on the need for medication compliance and appropriate follow-up at mental health and also primary care for medical issues. Patient verbalized understanding and agreed. -Social work to arrange for and conduct family meeting to ensure safety upon discharge and answer any questions/concerns. also to ensure safe home environment that guns/weapons are either removed from the home or locked away. Social work also to arrange for patients follow up appointments with [facility] for psychiatric care along with follow up with primary care provider. -Patient counseled on abstaining from recreational drugs and marijuana and alcohol. Was informed/educated on the adverse effects on their physical and mental health. Patient verbally agreed and understood. Patient was offered substance abuse treatment however declined at this time. -Patient was instructed to return to the hospital or seek immediate medical care if their psychiatric or medical symptoms do worsen or reoccur. Vital Signs Temp 97.4 F L 01/21/24 06:28 Pulse 99 01/24/24 06:49 Resp 15 01/20/24 06:42 BP 117/81 01/24/24 09:46 Pulse Ox 96 01/23/24 21:30 FiO2 Allergies Allergy/AdvReac Type Severity Reaction Status Date / Time ibuprofen [From Motrin] AdvReac Abdominal Verified 01/17/24 03:32 Pain Laboratory Results Urine Color Colorless 01/17/24 00:00 Urine Appearance Clear (Clear) 01/17/24 00:00 Urine pH 6.5 (5.0-8.0) 01/17/24 00:00 Ur Specific [place] 1.018 (1.001-1.035) 01/17/24 00:00 Urine Protein Negative (Negative) 01/17/24 00:00 Urine Glucose (UA) 1+ (Negative) H 01/17/24 00:00 Urine Ketones Negative (Negative) 01/17/24 00:00 Urine Blood Negative (Negative) 01/17/24 00:00 Urine Nitrite Negative (Negative) 01/17/24 00:00 Urine Bilirubin Negative (Negative) 01/17/24 00:00 Urine Urobilinogen <2.0 mg/dL (<2.0) 01/17/24 00:00 Ur Leukocyte Esterase Negative (Negative) 01/17/24 00:00 Urine Opiates Screen Not Detected (NotDetected) 01/16/24 21:30 Ur Oxycodone Screen Not Detected (NotDetected) 01/16/24 21:30 Urine Methadone Screen Not Detected (NotDetected) 01/16/24 21:30 Ur Barbiturates Screen Not Detected (NotDetected) 01/16/24 21:30 U Tricyclic Antidepress Not Detected (NotDetected) 01/16/24 21:30 Ur Phencyclidine Scrn Not Detected (NotDetected) 01/16/24 21:30 Ur Amphetamines Screen Detected (NotDetected) H 01/16/24 21:30 U Methamphetamines Scrn Detected (NotDetected) H 01/16/24 21:30 U Benzodiazepines Scrn Not Detected (NotDetected) 01/16/24 21:30 Urine Cocaine Screen Detected (NotDetected) H 01/16/24 21:30 U Marijuana (THC) Screen Detected (NotDetected) H 01/16/24 21:30 SARS-CoV-2 (PCR) Not Detected (Not Detectd) 01/17/24 00:53 Patient Condition at Discharge: Stable Plan - Discharge Summary Discharge Rx Participant: Yes New Discharge Prescriptions: New Nicotine Gum (Polacrilex) [Nicorette] 2 mg BUCCAL Q4HR PRN 30 Days #180 p ieceofgum PRN Reason: Nicotine Cravings hydrOXYzine pamoate [Vistaril] 50 mg PO DAILY PRN 14 Days #28 capsule PRN Reason: Anxiety Nicotine 14Mg/24Hr Patch [Habitrol] 1 patch TRANSDERM DAILY 14 Days #14 patch Melatonin 10 mg PO HS 30 Days #60 tab risperiDONE [RisperDAL] 1 mg PO DAILY 3 Days #3 tab risperiDONE [RisperDAL] 2 mg PO HS 3 Days #3 tab traZODone HCL 150 mg PO HS PRN 30 Days #30 tablet PRN Reason: Insomnia Acetaminophen Tab [Tylenol Tab] 500 mg PO Q6H PRN 10 Days #40 tablet PRN Reason: Pain Albuterol Inhaler [Ventolin Hfa Inhaler] 1 - 2 puff INHALATION Q6H PRN 30 Days #1 each PRN Reason: Wheezing Paliperidone IM [Invega Sustenna] 156 mg IM ONCE #1 ml Paliperidone Palmitate [Invega Sustenna] 117 mg IM QMONTHLY #1 each Discontinued Nicotine 21Mg/24Hr Patch [Habitrol] 1 patch TRANSDERM DAILY 14 Days #14 patch traZODone HCL 200 mg PO HS 30 Days #60 tablet ARIPiprazole IM [Abilify Maintena] 400 mg IM QMONTHLY #1 each Melatonin 6 mg PO HS 30 Days #60 tab Nicotine Gum (Polacrilex) [Nicorette] 2 mg BUCCAL Q4HR PRN pieceofgum PRN Reason: Nicotine Cravings ARIPiprazole [Abilify] 30 mg PO HS 14 Days #14 tab Discharge Medication List Acetaminophen Tab [Tylenol Tab] 500 mg PO Q6H PRN 10 Days #40 tablet 01/24/24 [Rx] Albuterol Inhaler [Ventolin Hfa Inhaler] 1 - 2 puff INHALATION Q6H PRN 30 Days #1 each 01/24/24 [Rx] Melatonin 10 mg PO HS 30 Days #60 tab 01/24/24 [Rx] Nicotine 14Mg/24Hr Patch [Habitrol] 1 patch TRANSDERM DAILY 14 Days #14 patch 01/24/24 [Rx] Nicotine Gum (Polacrilex) [Nicorette] 2 mg BUCCAL Q4HR PRN 30 Days #180 pieceofgum 01/24/24 [Rx] Paliperidone IM [Invega Sustenna] 156 mg IM ONCE #1 ml 01/24/24 [Rx] Paliperidone Palmitate [Invega Sustenna] 117 mg IM QMONTHLY #1 each 01/24/24 [Rx] hydrOXYzine pamoate [Vistaril] 50 mg PO DAILY PRN 14 Days #28 capsule 01/24/24 [Rx] risperiDONE [RisperDAL] 1 mg PO DAILY 3 Days #3 tab 01/24/24 [Rx] risperiDONE [RisperDAL] 2 mg PO HS 3 Days #3 tab 01/24/24 [Rx] traZODone HCL 150 mg PO HS PRN 30 Days #30 tablet 01/24/24 [Rx] Follow up Appointment(s)/Referral(s): Joao Salazar [Other] - As Needed (Pati, lining caser thought [employer] is available for any discharge needs) Delgado Edwards MD [Primary Care Provider] - 1-2 days Patient Instructions/Handouts: How to Stop Smoking (DC), Schizophrenia (DC) Activity/Diet/Wound Care/Special Instructions: Avoid the use of street drugs and alcohol. Take all medications as prescribed. When you are in need of refills on your medications, please contact your medical provider and/or outpatient psychiatrist/provider to have this done. Please go to your scheduled outpatient appointment for aftercare treatment. If symptoms return or become worse, call the crisis line at and/or go to the nearest emergency room for evaluation. National Suicide Hotline 986 Discharge Disposition: HOME SELF-CARE
[2024-01-24] MEDS: PALIPERIDONE IM 234 MG/1.5 ML SYG IM STA (11:36)
== END 2024-01-24 18:20 | disposition home or self-care (01) | DRG 885 ==
LOC: EC 19:37 → 3MHU 01-17 02:51
PROVIDERS: ADMIT Psychiatry & Neurology Psychiatry; ATTEND Psychiatry & Neurology Psychiatry
DX: F20.9 Schizophrenia, unspecified (principal); F14.10 Cocaine abuse, uncomplicated; F15.10 Other stimulant abuse, uncomplicated; F17.200 Nicotine dependence, unspecified, uncomplicated; F41.9 Anxiety disorder, unspecified; F12.10 Cannabis abuse, uncomplicated; Z91.148 Patient's other noncompliance with medication regimen for other reason; Z88.6 Allergy status to analgesic agent; Z65.3 Problems related to other legal circumstances
CPT/HCPCS: 80306; 81003; 82075; 87635; 99285